=== PATIENT | female | born 1965 | race Caucasian/White ===

== ENCOUNTER 2017-10-27 15:44 | Inpatient (IN) | payer MEDICARE, MEDICAID ==
[~2017-10-27] VITALS: Ht 162.6 cm; Wt 90.9 kg
[~2017-10-27 15:44] MED LIST: ASPI81TA11 PO; FLUC200T63 PO; HUMALOGP SQ; LEVEMIR SQ; METO25 PO; MEVA40TA PO; NIFE1TAB85 PO; NYSTT TOPICAL; PRIL20CA PO; PRIN5TAB PO; ZOVI400T15 PO
[2017-10-27 15:54] VITALS: BP 196/108; PULSE 116; RESP 20; TEMP 100.2; O2SAT 98
--- NOTE | 2017-10-27 16:54 | RADRPT ---
EXAM DATE/TIME: 10/27/2017 16:18 [facility] COMPARISON: CHEST SINGLE AP, December 17, 2015, 12:23. INDICATIONS : Fever. MEDICAL HISTORY : Vision impaired. SURGICAL HISTORY : Hernia surgery, Breast reduction. ENCOUNTER: Initial ACUITY: 3 days PAIN SCORE: 0/10 LOCATION: Bilateral chest FINDINGS: PA and lateral views of the chest demonstrate the lungs to be symmetrically aerated without evidence of mass, infiltrate or effusion. The cardiomediastinal contours are unremarkable. Osseous structure s are intact. CONCLUSION: No evidence of acute cardiopulmonary disease. Enio Heranndez MD on October 27, 2017 at 16:51 Board Certified Radiologist. This report was verified electronically.
[2017-10-27] MEDS ORDERED: SODIUM CHLOR 0.9% 1000 ML INJ 1,000 ML IV SCH (17:20)
[2017-10-27] MEDS ORDERED: NIFE30TA61 PO (17:21)
[2017-10-27] MEDS ORDERED: LOVA40TA PO (17:21)
[2017-10-27] MEDS ORDERED: GLIP10TA6 PO (17:21)
[2017-10-27] MEDS ORDERED: ACYC400T PO (17:21)
[2017-10-27] MEDS ORDERED: ERGO2000 PO (17:21)
[2017-10-27] MEDS ORDERED: OMEP20TA93 PO (17:21)
[2017-10-27] MEDS ORDERED: METF500T PO (17:21)
[2017-10-27] MEDS ORDERED: METO50TA PO (17:21)
[2017-10-27] MEDS ORDERED: ONDANSETRON HCL 4 MG/2 ML VIAL IVP ONE (17:30)
[2017-10-27] MEDS ORDERED: SODIUM CHLORIDE 0.9% FLUSH 10 ML FLUSH IV FLUSH PRN ×2 (17:30→23:00)
[2017-10-27 17:44] VITALS: BP 181/95; PULSE 114; RESP 22; TEMP 102.1; O2SAT 100
[2017-10-27] MEDS ORDERED: ACETAMINOPHEN 500 MG CPLT PO ONE (17:45)
[2017-10-27 17:51] LABS: AUTOMATED NEUTROPHIL # 13.4 TH/MM3 (1.8-7.7); BASOPHIL # 0.1 TH/MM3 (0-0.2); BASOPHIL % 0.6 % (0.0-2.0); EOSINOPHIL % 0.1 % (0.0-4.0); HEMATOCRIT 37.7 % (35.0-46.0); HEMOGLOBIN 12.6 GM/DL (11.6-15.3); LYMPH % 8.5 % (9.0-44.0); LYMPHOCYTE # 1.4 TH/MM3 (1.0-4.8); MEAN CELL VOLUME 82.3 FL (80.0-100.0); MEAN CORPUSCULAR HEMOGLOBIN 27.5 PG (27.0-34.0); MEAN CORPUSCULAR HGB CONC 33.4 % (32.0-36.0); MEAN PLATELET VOLUME 7.9 FL (7.0-11.0); MONO % 6.1 % (0.0-8.0); NEUT % 84.7 % (16.0-70.0); PLATELET COUNT 362 TH/MM3 (150-450); RED BLOOD COUNT 4.58 MIL/MM3 (4.00-5.30); RED CELL DISTRIBUTION WIDTH 14.3 % (11.6-17.2); WHITE BLOOD COUNT 15.9 TH/MM3 (4.0-11.0)
[2017-10-27] MEDS ORDERED: PIPERACIL-TAZO 4.5 GM PREMIX 100 ML IV STA (17:56)
[2017-10-27 18:00] LABS: INTERNATIONAL NORMALIZED RATIO 1.1 RATIO
[2017-10-27] MEDS ORDERED: SODIUM CHLOR 0.9% 1000 ML INJ 1,000 ML IV ONE (18:00)
[2017-10-27 18:53] VITALS: BP 177/83; PULSE 98; O2SAT 99
--- NOTE | 2017-10-27 18:54 | PD ---
HPI Chief Complaint: General Weakness Time Seen by Provider: 17:20 Travel History International Travel<30 days: No Contact w/Intl Traveler<30days: No Traveled to known affect area: No History of Present Illness HPI Patient comes [facility] department complaining of generalized weakness and vomiting 3 days. Patient reports she has not been able to keep any of her medicine down secondary to this. Patient reports that she has her Ricardo replaced every 3 weeks by home health nurse has had this done last 3 weeks ago. Patient denies any abdominal pain, known fevers, chest pain, shortness of breath, or neck pain. Patient reports she is able to take nausea medicine this morning that seemed to help. Eating or drinking anything makes symptoms worse. Denies any pain or radiation of pain. Severity moderate. PFSH Past Medical History Arthritis: Yes (knee) Cancer: No Cardiovascular Problems: Yes High Cholesterol: Yes Diabetes: Yes (NIDDM) Patient Takes Glucophage: Yes Endocrine: Yes Gastrointestinal Disorders: Yes GERD: Yes Genitourinary: No Hepatitis: No Hiatal Hernia: No Hypertension: Yes Immune Disorder: No Medical other: Yes (reflux, RETINITIS PIGMENTOSE) Musculoskeletal: Yes Neurologic: Yes Psychiatric: No Reproductive: No Respiratory: No Thyroid Disease: No ?: Not Past Surgical History Abdominal Surgery: Yes (abd hysterectomy, hernia repair ) Gynecologic Surgery: Yes (breast reduction) Hysterectomy: Yes Pacemaker: No Other Surgery: Yes Social History Alcohol Use: No Tobacco Use: No Substance Use: No Allergies-Medications (Allergen,Severity, Reaction): Coded Allergies: ibuprofen (Unverified Allergy, Intermediate, Nausea/Vomiting, 10/27/17) iodine (Unverified Allergy, Intermediate, Hives, 03/10/17) monosodium glutamate (Unverified Allergy, Intermediate, Rash, 03/10/17) oxycodone (Unverified Allergy, Intermediate, Nausea/Vomiting, 03/10/17) potassium iodide (Unverified Allergy, Intermediate, Hives, 03/10/17) povidone-iodine (Unverified Allergy, Intermediate, Hives, 03/10/17) shellfish derived (Unverified Allergy, Intermediate, Hives, 03/10/17) sodium iodide (Unverified Allergy, Intermediate, Hives, 03/10/17) sodium iodide (Unverified Allergy, Intermediate, Hives, 03/10/17) Reported Meds & Prescriptions Reported Meds & Active Scripts Active Reported Vitamin D2 (Ergocalciferol) 2,000 Unit Tab 50,000 Units PO WEEKLY Glipizide 10 Mg Tab 10 Mg PO DAILY Take 30 minutes before a meal Acyclovir 400 Mg Tab 400 Mg PO TID Metoprolol Tartrate 50 Mg Tab 50 Mg PO BID Nifedipine ER 24 HR (Nifedipine) 30 Mg Tab 30 Mg PO DAILY Omeprazole 20 Mg Tab 20 Mg PO DAILY Lovastatin 40 Mg Tab 40 Mg PO DAILY Metformin (Metformin HCl) 500 Mg Tab 500 Mg PO BIDPC Review of Systems Except as stated in HPI: all other systems reviewed are Neg Physical Exam Narrative GENERAL: Well-developed, overly nourished, in no acute distress, and non-ill appearing. SKIN: Focused skin assessment warm and dry. HEAD: Atraumatic. Normocephalic. EYES: EOMI. No scleral icterus. No injection or drainage. ENT: No nasal bleeding or discharge. Mucous membranes pink and moist. NECK: Trachea midline. Supple. No nuclear rigidity. CARDIOVASCULAR: Regular rate and rhythm. No murmur appreciated. RESPIRATORY: No accessory muscle use. No respiratory distress. Clear to auscultation. Breath sounds equal bilaterally. GASTROINTESTINAL: Abdomen soft, non-tender, nondistended, and no guarding. Hepatic and splenic margins not palpable. Normal bowel sounds x4. No pulsatile mass. No CVA tenderness. MUSCULOSKELETAL: No obvious deformities. No clubbing. No cyanosis. No edema. Full range of motion. NEUROLOGICAL: Awake and alert. No obvious cranial nerve deficits. Motor grossly within normal limits. Normal speech. PSYCHIATRIC: Appropriate mood and affect; insight and judgment normal. Data Data Last Documented VS Vital Signs Date Time Temp Pulse Resp B/P (MAP) Pulse Ox O2 Delivery O2 Flow Rate FiO2 10/27/17 19:47 98.2 98 18 159/87 (111) 99 Room Air Orders Orders Comprehensive Metabolic Panel (10/27/17 15:57) Complete Blood Count With Diff (10/27/17 15:57) Lipase (10/27/17 15:57) Prothrombin Time / Inr (Pt) (10/27/17 15:57) Act Partial Throm Time (Ptt) (10/27/17 15:57) Urinalysis - C+S If Indicated (10/27/17 15:57) Influenzae A/B Antigen (10/27/17 15:57) Chest, Pa & Lat (10/27/17 ) Lactic Acid Sepsis Protocol (10/27/17 15:57) Iv Access Insert/Monitor (10/27/17 17:20) Ecg Monitoring (10/27/17 17:20) Oximetry (10/27/17 17:20) Ondansetron Inj (Zofran Inj) (10/27/17 17:30) Sodium Chlor 0.9% 1000 Ml Inj (Ns 1000 M (10/27/17 17:20) Sodium Chloride 0.9% Flush (Ns Flush) (10/27/17 17:30) Acetaminophen (Tylenol) (10/27/17 17:45) Sepsis Workup Initiated (10/27/17 ) Blood Culture (10/27/17 17:56) Piperacil-Tazo 4.5 Gm Premix (Zosyn 4.5 (10/27/17 17:56) Sodium Chlor 0.9% 1000 Ml Inj (Ns 1000 M (10/27/17 18:00) Ct Abd/Pel W/O Iv Contrast (10/27/17 18:25) Beta Hydroxybutyrate (Acetone) (10/27/17 17:32) Urine Culture (10/27/17 18:26) Continue Ricardo/Suprapubic Cath (10/27/17 20:17) Vital Signs (Adult) Q4H (10/27/17 20:17) Activity Bed Rest (10/27/17 20:17) Notify Dr: Other (10/27/17 20:17) Admit Order (Ed Use Only) (10/27/17 20:35) Labs Laboratory Tests Test 10/27/17 17:32 10/27/17 18:26 White Blood Count 15.9 TH/MM3 Red Blood Count 4.58 MIL/MM3 Hemoglobin 12.6 GM/DL Hematocrit 37.7 % Mean Corpuscular Volume 82.3 FL Mean Corpuscular Hemoglobin 27.5 PG Mean Corpuscular Hemoglobin Concent 33.4 % Red Cell Distribution Width 14.3 % Platelet Count 362 TH/MM3 Mean Platelet Volume 7.9 FL Neutrophils (%) (Auto) 84.7 % Lymphocytes (%) (Auto) 8.5 % Monocytes (%) (Auto) 6.1 % Eosinophils (%) (Auto) 0.1 % Basophils (%) (Auto) 0.6 % Neutrophils # (Auto) 13.4 TH/MM3 Lymphocytes # (Auto) 1.4 TH/MM3 Monocytes # (Auto) 1.0 TH/MM3 Eosinophils # (Auto) 0.0 TH/MM3 Basophils # (Auto) 0.1 TH/MM3 CBC Comment DIFF FINAL Differential Comment Prothrombin Time 11.0 SEC Prothromb Time International Ratio 1.1 RATIO Activated Partial Thromboplast Time 26.1 SEC Blood Urea Nitrogen 25 MG/DL Creatinine 1.75 MG/DL Random Glucose 248 MG/DL Total Protein 7.7 GM/DL Albumin 3.1 GM/DL Calcium Level 9.5 MG/DL Alkaline Phosphatase 148 U/L Aspartate Amino Transf (AST/SGOT) 11 U/L Alanine Aminotransferase (ALT/SGPT) 14 U/L Total Bilirubin 0.5 MG/DL Sodium Level 135 MEQ/L Potassium Level 4.1 MEQ/L Chloride Level 104 MEQ/L Carbon Dioxide Level 19.4 MEQ/L Anion Gap 12 MEQ/L Estimat Glomerular Filtration Rate 31 ML/MIN Lactic Acid Level 0.9 mmol/L Lipase 89 U/L B-Hydroxybutyrate 0.55 MMOL/L Urine Color YELLOW Urine Turbidity CLOUDY Urine pH 5.0 Urine Specific [place] 1.014 Urine Protein 30 mg/dL Urine Glucose (UA) 1000 mg/dL Urine Ketones 10 mg/dL Urine Occult Blood SMALL Urine Nitrite POS Urine Bilirubin NEG Urine Urobilinogen LESS THAN 2.0 MG/DL Urine Leukocyte Esterase LARGE Urine RBC 38 /hpf Urine WBC /hpf Urine WBC Clumps RARE Urine Squamous Epithelial Cells <1 /hpf Urine Bacteria MANY /hpf Microscopic Urinalysis Comment CATH-CULTURE IND [facility] Medical Decision Making Medical Screen Exam Complete: Yes Emergency Medical Condition: Yes Interpretation(s) Last Impressions Abdomen/Pelvis CT 10/27/17 1825 Signed Impressions: Service Date/Time: Friday, October 27, 2017 19:24 - CONCLUSION: 1. No acute findings within the abdomen and pelvis. Multiple layering gallstones or gallbladder sludge. Previous ventral hernia repair. Arnulfo Mayer MD Chest X-Ray 10/27/17 0000 Signed Impressions: Service Date/Time: Friday, October 27, 2017 16:18 - CONCLUSION: No evidence of acute cardiopulmonary disease. Enio Hernandez MD Differential Diagnosis Gastritis, pancreatitis, sepsis, UTI, metabolic disturbance, dehydration, DKA Narrative Course Patient was seen and examined. Initial laboratory radiological studies were ordered. Patient start IV fluid, IV Zofran, and p.o. Tylenol along with IV Zosyn. Patient was reevaluated reports improvement in symptoms but still feeling weak. Discussed all findings and plan of care with patient is agreeable for admission. All questions were answered. Ricardo catheter was replaced. Discussed patient with Dr. Ashton, who is in agreement plan of care and disposition. Discussed patient with hospitalist who is agreeable to admit the patient. Patient remained stable throughout ED course. Procedures Procedure Narrative [address] Bird, who is agreeable to admit the patient. Sepsis Criteria SIRS Criteria (2 or more): Temp > 100.9 or < 96.8, Heart rate over 90, WBC > 07622, < 4000 or > 10% bands Sepsis Criteria (SIRS+source): Infect source susp/known Diagnosis Primary Impression: Sepsis Qualified Codes: A41.9 - Sepsis, unspecified organism Additional Impression: UTI (urinary tract infection) Qualified Codes: T83.511A - Infection and inflammatory reaction due to indwelling urethral catheter, initial encounter; N39.0 - Urinary tract infection , site not specified Admitting Information Admitting Physician Requests: Admit Condition: Stable Rolf Hackett Oct 27, 2017 18:54
[2017-10-27 18:56] LABS: ALBUMIN 3.1 GM/DL (3.4-5.0); AST (GOT) 11 U/L (15-37); BICARBONATE 19.4 MEQ/L (21.0-32.0); BLOOD UREA NITROGEN 25 MG/DL (7-18); CALCIUM 9.5 MG/DL (8.5-10.1); CREATININE 1.75 MG/DL (0.50-1.00); GLOMERULAR FILTRATION RATE 31 ML/MIN (>89); GLUCOSE,RANDOM 248 MG/DL (74-106)
[2017-10-27 18:57] LABS: ALT (GPT) 14 U/L (10-53)
[2017-10-27 18:59] LABS: ALKALINE PHOSPHATASE 148 U/L (45-117); TOTAL BILIRUBIN ADULT 0.5 MG/DL (0.2-1.0); TOTAL PROTEIN 7.7 GM/DL (6.4-8.2)
[2017-10-27 19:07] LABS: BACTERIA, URINE MANY /hpf; BILIRUBIN, URINE NEG (NEG); BLOOD, URINE SMALL (NEG); GLUCOSE,URINE 1000 mg/dL (NEG); KETONE, URINE 10 mg/dL (NEG); NITRITE,URINE POS (NEG); SQUAMOUS EPITHELIAL CELL URINE <1 /hpf (0-5); URINE COLOR YELLOW (YELLW/STRAW); URINE LEUKOCYTE ESTERASE LARGE (NEG); WHITE BLOOD CELL CLUMPS RARE
[2017-10-27 19:36] LABS: CHLORIDE 104 MEQ/L (98-107); SODIUM (NA) 135 MEQ/L (136-145)
[2017-10-27 19:47] VITALS: BP 159/87; PULSE 98; RESP 18; TEMP 98.2; O2SAT 99
--- NOTE | 2017-10-27 19:58 | RADRPT ---
EXAM DATE/TIME: 10/27/2017 19:24 [facility] COMPARISON: No previous studies available for comparison. INDICATIONS : Patient complains of weakness and vomiting ORAL CONTRAST: No oral contrast ingested. RADIATION DOSE: 20.64 CTDIvol (mGy) MEDICAL HISTORY : Hypertension. Diabetes mellitus type 1. SURGICAL HISTORY : Hysterectomy. hernia repair ENCOUNTER: Initial ACUITY: 3 days PAIN SCALE: 6/10 LOCATION: abdomen TECHNIQUE: Volumetric scanning of the abdomen and pelvis was performed. Using automated exposure control and ad justment of the mA and/or kV according to patient size, radiation dose was kept as low as reasonably achievable to obtain optimal diagnostic quality images. DICOM format image data is available electro nically for review and comparison. FINDINGS: Lung bases are clear. There is previous ventral hernia repair. No acute findings in the liver, spleen , adrenals, kidneys or pancreas. There is dependent sludge or gallstones in the gallbladder without d elay ductal dilatation. Large panniculus present. Bladder unremarkable. No pelvic masses. Previous hy sterectomy. CONCLUSION: 1. No acute findings within the abdomen and pelvis. Multiple layering gallstones or gallbladder sludg e. Previous ventral hernia repair. Arnulfo Mayer MD on October 27, 2017 at 19:52 Board Certified Radiologist. This report was verified electronically.
[2017-10-27] MEDS ORDERED: BISACODYL 10 MG SUPP RECTAL PRN (23:00)
[2017-10-27] MEDS ORDERED: NALOXONE HCL 0.4 MG/ML AMP IV PUSH PRN (23:00)
[2017-10-27] MEDS ORDERED: ACETAMINOPHEN 325 MG TAB PO PRN (23:00)
[2017-10-27] MEDS ORDERED: LACTULOSE SYRUP 20 GM/30 ML CUP PO PRN (23:00)
[2017-10-27] MEDS ORDERED: MAGNESIUM HYDROXIDE SUSP 30 ML CUP PO PRN (23:00)
[2017-10-27] MEDS ORDERED: SENNOSIDES 8.6 MG TAB PO PRN (23:00)
[2017-10-27] MEDS ORDERED: GLUCAGON 1 MG/ML VIAL OTHER PRN (23:15)
[2017-10-27] MEDS ORDERED: DEXTROSE 50% IN WATER 50 ML VIAL(D50) IV PUSH PRN (23:15)
[2017-10-28] MEDS: SODIUM CHLOR 0.9% 1000 ML INJ 1,000 ML IV SCH ×4 (00:07→23:00)
[2017-10-28] MEDS: PIPERACIL-TAZO 3.375 GM PREMIX 50 ML IV SCH ×4 (00:08→17:52)
--- NOTE | 2017-10-28 01:30 | HHI.HP ---
[facility] Jaimie Pete MD Admission Diagnosis Sepsis, UTI Diagnoses: Travel History International Travel<30 Days: No Contact w/Intl Traveler <30 Da: No Traveled to Known Affected Are: No History of Present Illness 52-year-old female with a past medical history significant for retinitis pigmentosa, diabetes mellitus, hypertension, hyperlipidemia and GERD presents to the emergency department for evaluation of weakness. The patient reports that she woke up this morning and was just not feeling well. She states she had significant weakness with emesis 1. She has an indwelling Ricardo catheter that is changed every 3 weeks secondary to urinary retention. She endorses subjective fever/chills. Denies chest pain or shortness of breath. No abdominal/pelvic pain. No nausea/diarrhea. No lateralizing signs/symptoms. Review of Systems Except as stated in HPI: all other systems reviewed are Neg Past Family Social History Past Medical History retinitis pigmentosa, diabetes mellitus, hypertension, hyperlipidemia and GERD Past Surgical History Breast reduction Hysterectomy Hernia repair Reported Medications Reported Meds & Active Scripts Active Reported Vitamin D2 (Ergocalciferol) 2,000 Unit Tab 50,000 Units PO WEEKLY Glipizide 10 Mg Tab 10 Mg PO DAILY Take 30 minutes before a meal Acyclovir 400 Mg Tab 400 Mg PO TID Metoprolol Tartrate 50 Mg Tab 50 Mg PO BID Nifedipine ER 24 HR (Nifedipine) 30 Mg Tab 30 Mg PO DAILY Omeprazole 20 Mg Tab 20 Mg PO DAILY Lovastatin 40 Mg Tab 40 Mg PO DAILY Metformin (Metformin HCl) 500 Mg Tab 500 Mg PO BIDPC Allergies: Coded Allergies: ibuprofen (Unverified Allergy, Intermediate, Nausea/Vomiting, 10/27/17) iodine (Unverified Allergy, Intermediate, Hives, 03/10/17) monosodium glutamate (Unverified Allergy, Intermediate, Rash, 03/10/17) oxycodone (Unverified Allergy, Intermediate, Nausea/Vomiting, 03/10/17) potassium iodide (Unverified Allergy, Intermediate, Hives, 03/10/17) povidone-iodine (Unverified Allergy, Intermediate, Hives, 03/10/17) shellfish derived (Unverified Allergy, Intermediate, Hives, 03/10/17) sodium iodide (Unverified Allergy, Intermediate, Hives, 03/10/17) sodium iodide (Unverified Allergy, Intermediate, Hives, 03/10/17) Family History Mother with diabetes mellitus Social History Negative for alcohol, tobacco and illicit drugs. Physical Exam Vital Signs Vital Signs Date Time Temp Pulse Resp B/P (MAP) Pulse Ox O2 Delivery O2 Flow Rate FiO2 10/27/17 21:04 10/27/17 19:47 98.2 98 18 159/87 (111) 99 Room Air 10/27/17 18:53 98 177/83 (114) 99 10/27/17 17:44 102.1 114 22 181/95 (123) 100 Room Air 10/27/17 15:54 100.2 116 20 196/108 (137) 98 Physical Exam GENERAL: Obese, female sitting up in bed SKIN: No rashes, ecchymoses or lesions. Cool and dry. HEAD: Atraumatic. Normocephalic. No temporal or scalp tenderness. EYES: Pupils equal round and reactive. Extraocular motions intact. No scleral icterus. No injection or drainage. ENT: Nose without bleeding, purulent drainage or septal hematoma. Throat without erythema, tonsillar hypertrophy or exudate. Uvula midline. Airway patent. NECK: Trachea midline. No JVD or lymphadenopathy. Supple, nontender, no meningeal signs. CARDIOVASCULAR: Regular rate and rhythm without murmurs, gallops, or rubs. RESPIRATORY: Clear to auscultation. Breath sounds equal bilaterally. No wheezes , rales, or rhonchi. GASTROINTESTINAL: Abdomen soft, non-tender, nondistended. No hepato-splenomegaly , or palpable masses. No guarding. MUSCULOSKELETAL: Extremities without clubbing, cyanosis, or edema. No joint tenderness, effusion, or edema noted. No calf tenderness. NEUROLOGICAL: Awake and alert. Cranial nerves II through XII intact. Motor and sensory grossly within normal limits. Normal speech. Laboratory Laboratory Tests Test 10/27/17 17:32 10/27/17 18:26 White Blood Count 15.9 Red Blood Count 4.58 Hemoglobin 12.6 Hematocrit 37.7 Mean Corpuscular Volume 82.3 Mean Corpuscular Hemoglobin 27.5 Mean Corpuscular Hemoglobin Concent 33.4 Red Cell Distribution Width 14.3 Platelet Count 362 Mean Platelet Volume 7.9 Neutrophils (%) (Auto) 84.7 Lymphocytes (%) (Auto) 8.5 Monocytes (%) (Auto) 6.1 Eosinophils (%) (Auto) 0.1 Basophils (%) (Auto) 0.6 Neutrophils # (Auto) 13.4 Lymphocytes # (Auto) 1.4 Monocytes # (Auto) 1.0 Eosinophils # (Auto) 0.0 Basophils # (Auto) 0.1 CBC Comment DIFF FINAL Differential Comment Prothrombin Time 11.0 Prothromb Time International Ratio 1.1 Activated Partial Thromboplast Time 26.1 Blood Urea Nitrogen 25 Creatinine 1.75 Random Glucose 248 Total Protein 7.7 Albumin 3.1 Calcium Level 9.5 Alkaline Phosphatase 148 Aspartate Amino Transf (AST/SGOT) 11 Alanine Aminotransferase (ALT/SGPT) 14 Total Bilirubin 0.5 Sodium Level 135 Potassium Level 4.1 Chloride Level 104 Carbon Dioxide Level 19.4 Anion Gap 12 Estimat Glomerular Filtration Rate 31 Lactic Acid Level 0.9 Lipase 89 B-Hydroxybutyrate 0.55 Urine Color YELLOW Urine Turbidity CLOUDY Urine pH 5.0 Urine Specific [place] 1.014 Urine Protein 30 Urine Glucose (UA) 1000 Urine Ketones 10 Urine Occult Blood SMALL Urine Nitrite POS Urine Bilirubin NEG Urine Urobilinogen LESS THAN 2.0 Urine Leukocyte Esterase LARGE Urine RBC 38 Urine WBC Urine WBC Clumps RARE Urine Squamous Epithelial Cells <1 Urine Bacteria MANY Microscopic Urinalysis Comment CATH-CULTURE IND Date/Time Source Procedure Growth Status 10/27/17 18:20 Blood Peripheral Aerobic Blood Culture Pending Received 10/27/17 18:20 Blood Peripheral Anaerobic Blood Culture Pending Received 10/27/17 17:32 Nasal Aspirate Influenza Types A,B Antigen ([facility]ON) - Final NEGATIVE FOR FLU A AND B ANTIGEN.... Complete 10/27/17 18:26 Urine Catheterized Urine Urine Culture Pending Received Result Diagram: 10/27/17 1732 10/27/17 173 Caprini VTE Risk Assessment Caprini VTE Risk Assessment: No/Low Risk (score <= 1) Caprini Risk Assessment Model Point Value = 1 Point Value = 2 Point Value = 3 Point Value = 5 Age 41-60 Minor surgery BMI > 25 kg/m2 Swollen legs Varicose veins or History of unexplained or recurrent spontaneous Oral contraceptives or hormone replacement Sepsis (< 1 month) Serious lung disease, including pneumonia (< 1 month) Abnormal pulmonary function Acute myocardial infarction Congestive heart failure (< 1 month) History of inflammatory bowel disease Medical patient at bed rest Age 61-74 Arthroscopic surgery Major open surgery (> 45 min) Laparoscopic surgery (> 45 min) Malignancy Confined to bed (> 72 hours) Immobilizing plaster cast Central venous access Age >= 75 History of VTE Family history of VTE Factor V Leiden Prothrombin [id number] Lupus anticoagulant Anticardiolipin antibodies Elevated serum homocysteine Heparin-induced thrombocytopenia Other congenital or acquired thrombophilia Stroke (< 1 month) Elective arthroplasty Hip, pelvis, or leg fracture Acute spinal cord injury (< 1 month) Prophylaxis Regimen Total Risk Factor Score Risk Level Prophylaxis Regimen 0-1 Low Early ambulation 2 Moderate Order ONE of the following: *Sequential Compression Device (SCD) *Heparin 5000 units SQ BID 3-4 Higher Order ONE of the following medications: *Heparin 5000 units SQ TID *Enoxaparin/Lovenox 40 mg SQ daily (WT < 150 kg, CrCl > 30 mL/min) *Enoxaparin/Lovenox 30 mg SQ daily (WT < 150 kg, CrCl > 10-29 mL/min) *Enoxaparin/Lovenox 30 mg SQ BID (WT < 150 kg, CrCl > 30 mL/min) AND/OR *Sequential Compression Device (SCD) 5 or more Highest Order ONE of the following medications: *Heparin 5000 units SQ TID (Preferred with Epidurals) *Enoxaparin/Lovenox 40 mg SQ daily (WT < 150 kg, CrCl > 30 mL/min) *Enoxaparin/Lovenox 30 mg SQ daily (WT < 150 kg, CrCl > 10-29 mL/min) *Enoxaparin/Lovenox 30 mg SQ BID (WT < 150 kg, CrCl > 30 mL/min) AND *Sequential Compression Device (SCD) Assessment and Plan Assessment and Plan Assessment/plan: 1. Urosepsis Patient with leukocytosis, fever, tachycardia UA consistent with urinary tract infection Blood/urine cultures pending IV fluid hydration Zosyn Monitor for signs of shock 2. Diabetes mellitus Holding home oral anti-hyperglycemics Sliding scale insulin Monitor blood glucose 3. Hypertension/hyperlipidemia/GERD Continue home medications 4. Retinitis pigmentosa Visual impairment precautions 5. DANIELA BUN/creatinine 25/1.75, baseline 0.96 - 2 years ago IV fluid hydration Monitor renal function FEN Heart healthy, diabetic diet Electrolytes: Monitor and replete prn NS at 125 cc/hr SCDs Physician Certification 2 Midnight Certification Type: Admission for Inpatient Services Order for Inpatient Services The services are ordered in accordance with Medicare regulations or non- Medicare payer requirements, as applicable. In the case of services not specified as inpatient-only, they are appropriately provided as inpatient services in accordance with the 2-midnight benchmark. Estimated LOS (days): 2 2 days is the estimated time the patient will need to remain in the hospital, assuming treatment plan goals are met and no additional complications. Post-Hospital Plan: Not yet determined Annabel Bird MD Oct 28, 2017 01:30
[2017-10-28] MEDS: ONDANSETRON HCL 4 MG/2 ML VIAL IVP PRN ×2 (03:06→15:36)
[2017-10-28 03:16] VITALS: BP 186/96; PULSE 94; RESP 18; TEMP 98.3; O2SAT 98
[2017-10-28 07:13] VITALS: BP 176/81; PULSE 95; RESP 20; TEMP 98.3; O2SAT 98
[2017-10-28] MEDS: SODIUM CHLORIDE 0.9% FLUSH 10 ML FLUSH IV FLUSH SCH ×2 (08:17→22:26)
[2017-10-28] MEDS: PANTOPRAZOLE SOD 20 MG DELAYED RELEASE TAB PO SCH (08:17)
[2017-10-28] MEDS: PRAVASTATIN SOD 40 MG TAB PO SCH (08:17)
[2017-10-28] MEDS: DOCUSATE SODIUM 50 MG/SENNA 8.6 MG TAB PO SCH ×2 (08:17→22:26)
[2017-10-28] MEDS: METOPROLOL TARTRATE 50 MG TAB PO SCH ×2 (08:17→22:26)
[2017-10-28] MEDS: NIFEdipine 30 MG SUSTAINED RELEASE TAB PO SCH (08:17)
[2017-10-28] MEDS: INSULIN ASPART SUPPLEMENTAL SCALE SQ SCH ×4 (09:30→21:00)
[2017-10-28] MEDS: ACYCLOVIR 200 MG CAP PO SCH ×3 (09:31→17:00)
--- NOTE | 2017-10-28 10:48 | HHI.PR ---
Subjective Remarks in no acute distress. no fever this morning. feels better and stronger today. Objective Vitals Vital Signs Date Time Temp Pulse Resp B/P (MAP) Pulse Ox O2 Delivery O2 Flow Rate FiO2 10/28/17 07:13 98.3 95 20 176/81 (112) 98 10/28/17 03:16 98.3 94 18 186/96 (126) 98 10/27/17 21:04 10/27/17 19:47 98.2 98 18 159/87 (111) 99 Room Air 10/27/17 18:53 98 177/83 (114) 99 10/27/17 17:44 102.1 114 22 181/95 (123) 100 Room Air 10/27/17 15:54 100.2 116 20 196/108 (137) 98 I/O 10/27/17 10/27/17 10/27/17 10/28/17 10/28/17 10/28/17 07:00 15:00 23:00 07:00 15:00 23:00 Intake Total 2100 ml 50 ml Balance 2100 ml 50 ml Intake IV Total 2100 ml 50 ml Result Diagram: 10/27/17 1732 10/27/17 1732 Imaging Last Impressions Abdomen/Pelvis CT 10/27/17 1825 Signed Impressions: Service Date/Time: Friday, October 27, 2017 19:24 - CONCLUSION: 1. No acute findings within the abdomen and pelvis. Multiple layering gallstones or gallbladder sludge. Previous ventral hernia repair. Arnulfo Mayer MD Chest X-Ray 10/27/17 0000 Signed Impressions: Service Date/Time: Friday, October 27, 2017 16:18 - CONCLUSION: No evidence of acute cardiopulmonary disease. Enio Hernandez MD Objective Remarks GENERAL: This is a well-nourished, well-developed patient, in no apparent distress. CARDIOVASCULAR: Regular rate and regular rhythm without murmurs, gallops, or rubs. RESPIRATORY: Clear to auscultation. Breath sounds equal bilaterally. No wheezes , rales, or rhonchi. GASTROINTESTINAL: Abdomen soft, non-tender, nondistended. Normal, active bowel sounds MUSCULOSKELETAL: Extremities without clubbing, cyanosis, or edema. NEURO: Alert & Oriented x4 to person, place, time, situation. Moves all ext x4 Medications and IVs Inpatient Medications Acetaminophen (Tylenol) 650 mg Q4H PRN PO TEMP > 100.4; Start 10/27/17 at 23:00 Acyclovir (Zovirax) 400 mg TID PO Last administered on 10/28/17at 09:31; Start at 09:00 Bisacodyl (Dulcolax Supp) 10 mg DAILY PRN RECTAL SEVERE CONSITIPATION; Start at 23:00 Dextrose (D50w (Vial) Inj) 50 ml UNSCH PRN IV PUSH HYPOGLYCEMIA-SEE COMMENTS; Start 10/27/17 at 23:15 Glucagon (Glucagon Inj) 1 mg UNSCH PRN OTHER HYPOGLYCEMIA-SEE COMMENTS; Start 10/27/17 at 23:15 Insulin Aspart (NovoLOG SUPPLEMENTAL SCALE) 1 ACHS SLIDING SCALE SQ Last administered on 10/28/17at 09:30; Start 10/28/17 at 08:00 Lactulose (Lactulose Liq) 30 ml DAILY PRN PO SEVERE CONSITIPATION; Start at 23:00 Magnesium Hydroxide (Milk Of Magnesia Liq) 30 ml Q12H PRN PO Mild constipation ; Start 10/27/17 at 23:00 Metoprolol Tartrate (Lopressor) 50 mg BID PO Last administered on 10/28/17 08: 17; Start 10/28/17 at 09:00 Naloxone HCl (Narcan Inj) 0.4 mg UNSCH PRN IV PUSH SEE LABEL COMMENTS; Start at 23:00 Nifedipine (Procardia Xl) 30 mg DAILY PO Last administered on 10/28/17 08:17; Start 10/28/17 at 09:00 Ondansetron HCl (Zofran Inj) 4 mg Q6H PRN IVP NAUSEA OR VOMITING Last administered on 10/28/17 03:06; Start 10/27/17 at 23:00 Pantoprazole Sodium (Protonix) 20 mg DAILY PO Last administered on 10/28/17 08: 17; Start 10/28/17 at 09:00 Piperacillin Sod/ Tazobactam Sod 50 ml @ 100 mls/hr Q6H IV Last administered on 10/28/17at 06:32; Start 10/28/17 at 00:00 Pravastatin Sodium (Pravachol) 40 mg DAILY PO Last administered on 4/4/18at 08: 17; Start 10/28/17 at 09:00 Senna/Docusate Sodium (Tamara-Colace) 1 tab BID PO Last administered on 10/28/17at 08:17; Start 10/28/17 at 09:00 Sennosides (Senokot) 17.2 mg Q12H PRN PO Moderate constipation; Start 10/27/17 at 23:00 Sodium Chloride (NS Flush) 2 ml BID IV FLUSH ; Start 10/28/17 at 09:00 A/P Assessment and Plan 1. Urosepsis Patient with leukocytosis, fever, tachycardia UA consistent with urinary tract infection Blood/urine cultures pending IV fluid hydration continue IV Zosyn 2. Diabetes mellitus Holding home oral anti-hyperglycemics Sliding scale insulin Monitor blood glucose 3. Hypertension/hyperlipidemia/GERD Continue home medications 4. Retinitis pigmentosa Visual impairment precautions 5. DANIELA BUN/creatinine 25/1.75, baseline 0.96 - 2 years ago IV fluid hydration Monitor renal function consult PT. Ernie Null MD Oct 28, 2017 10:48
[2017-10-28 11:27] VITALS: BP 174/77; PULSE 89; RESP 20; TEMP 99.4; O2SAT 97
[2017-10-28 12:22] LABS: AUTOMATED NEUTROPHIL # 8.4 TH/MM3 (1.8-7.7); BASOPHIL % 0.4 % (0.0-2.0); EOSINOPHIL % 0.3 % (0.0-4.0); HEMATOCRIT 31.5 % (35.0-46.0); HEMOGLOBIN 10.6 GM/DL (11.6-15.3); LYMPH % 11.9 % (9.0-44.0); LYMPHOCYTE # 1.3 TH/MM3 (1.0-4.8); MEAN CELL VOLUME 82.3 FL (80.0-100.0); MEAN CORPUSCULAR HEMOGLOBIN 27.7 PG (27.0-34.0); MEAN CORPUSCULAR HGB CONC 33.6 % (32.0-36.0); MEAN PLATELET VOLUME 7.9 FL (7.0-11.0); MONO % 8.4 % (0.0-8.0); MONOCYTE # 0.9 TH/MM3 (0-0.9); PLATELET COUNT 310 TH/MM3 (150-450); RED BLOOD COUNT 3.83 MIL/MM3 (4.00-5.30); RED CELL DISTRIBUTION WIDTH 14.4 % (11.6-17.2); WHITE BLOOD COUNT 10.6 TH/MM3 (4.0-11.0)
[2017-10-28 12:39] LABS: BICARBONATE 20.6 MEQ/L (21.0-32.0); CALCIUM 8.2 MG/DL (8.5-10.1); CREATININE 1.47 MG/DL (0.50-1.00)
[2017-10-28 16:15] VITALS: BP 180/87; PULSE 93; RESP 20; TEMP 98.9; O2SAT 95
[2017-10-28 20:06] VITALS: BP 139/68; PULSE 87; RESP 16; TEMP 97.6; O2SAT 97
[2017-10-28 22:58] VITALS: BP 153/77; PULSE 69; RESP 16; TEMP 97.4; O2SAT 98
[2017-10-29] MEDS: PIPERACIL-TAZO 3.375 GM PREMIX 50 ML IV SCH ×5 (01:29→23:09)
[2017-10-29 03:10] VITALS: BP 172/90; PULSE 79; RESP 16; TEMP 97.6; O2SAT 99
[2017-10-29] MEDS: SODIUM CHLOR 0.9% 1000 ML INJ 1,000 ML IV SCH ×3 (04:57→23:04)
[2017-10-29 06:41] LABS: BICARBONATE 21.1 MEQ/L (21.0-32.0); CALCIUM 8.5 MG/DL (8.5-10.1); CREATININE 1.37 MG/DL (0.50-1.00)
[2017-10-29 07:11] VITALS: BP 169/83; PULSE 89; RESP 16; TEMP 97.5; O2SAT 97
--- NOTE | 2017-10-29 08:06 | HHI.PR ---
Subjective Remarks in no acute distress. afebrile. overall feeling better and hoping that she could go home today. Objective Vitals Vital Signs Date Time Temp Pulse Resp B/P (MAP) Pulse Ox O2 Delivery O2 Flow Rate FiO2 10/29/17 07:11 97.5 89 16 169/83 (111) 97 10/29/17 03:10 97.6 79 16 172/90 (117) 99 10/28/17 22:58 97.4 69 16 153/77 (102) 98 10/28/17 20:06 97.6 87 16 139/68 (91) 97 10/28/17 16:15 98.9 93 20 180/87 (118) 95 10/28/17 11:27 99.4 89 20 174/77 (109) 97 I/O 10/28/17 10/28/17 10/28/17 10/29/17 10/29/17 10/29/17 07:00 15:00 23:00 07:00 15:00 23:00 Intake Total 100 ml 1050 ml Balance 100 ml 1050 ml Intake IV Total 100 ml 1050 ml Result Diagram: 10/28/17 1145 10/29/17 0448 Imaging Last Impressions Abdomen/Pelvis CT 10/27/17 1825 Signed Impressions: Service Date/Time: Friday, October 27, 2017 19:24 - CONCLUSION: 1. No acute findings within the abdomen and pelvis. Multiple layering gallstones or gallbladder sludge. Previous ventral hernia repair. Arnulfo Mayer MD Chest X-Ray 10/27/17 0000 Signed Impressions: Service Date/Time: Friday, October 27, 2017 16:18 - CONCLUSION: No evidence of acute cardiopulmonary disease. Enio Hernandez MD Objective Remarks GENERAL: This is a well-nourished, well-developed patient, in no apparent distress. CARDIOVASCULAR: Regular rate and regular rhythm without murmurs, gallops, or rubs. RESPIRATORY: Clear to auscultation. Breath sounds equal bilaterally. No wheezes , rales, or rhonchi. GASTROINTESTINAL: Abdomen soft, non-tender, nondistended. Normal, active bowel sounds MUSCULOSKELETAL: Extremities without clubbing, cyanosis, or edema. NEURO: Alert & Oriented x4 to person, place, time, situation. Moves all ext x4 Procedures none Medications and IVs Inpatient Medications Acetaminophen (Tylenol) 650 mg Q4H PRN PO TEMP > 100.4 Last administered on 10/28 17:01; Start 10/27/17 at 23:00 Acyclovir (Zovirax) 400 mg TID PO Last administered on 10/28/17 17:00; Start at 09:00 Bisacodyl (Dulcolax Supp) 10 mg DAILY PRN RECTAL SEVERE CONSITIPATION; Start at 23:00 Dextrose (D50w (Vial) Inj) 50 ml UNSCH PRN IV PUSH HYPOGLYCEMIA-SEE COMMENTS; Start 10/27/17 at 23:15 Glucagon (Glucagon Inj) 1 mg UNSCH PRN OTHER HYPOGLYCEMIA-SEE COMMENTS; Start 10/27/17 at 23:15 Insulin Aspart (NovoLOG SUPPLEMENTAL SCALE) 1 ACHS SLIDING SCALE SQ Last administered on 10/28/17 19:27; Start 10/28/17 at 08:00 Lactulose (Lactulose Liq) 30 ml DAILY PRN PO SEVERE CONSITIPATION; Start at 23:00 Magnesium Hydroxide (Milk Of Magnesia Liq) 30 ml Q12H PRN PO Mild constipation ; Start 10/27/17 at 23:00 Metoprolol Tartrate (Lopressor) 50 mg BID PO Last administered on 10/28/17 22: 26; Start 10/28/17 at 09:00 Naloxone HCl (Narcan Inj) 0.4 mg UNSCH PRN IV PUSH SEE LABEL COMMENTS; Start at 23:00 Nifedipine (Procardia Xl) 30 mg DAILY PO Last administered on 10/28/17 08:17; Start 10/28/17 at 09:00 Ondansetron HCl (Zofran Inj) 4 mg Q6H PRN IVP NAUSEA OR VOMITING Last administered on 10/28/17 15:36; Start 10/27/17 at 23:00 Pantoprazole Sodium (Protonix) 20 mg DAILY PO Last administered on 10/28/17 08: 17; Start 10/28/17 at 09:00 Piperacillin Sod/ Tazobactam Sod 50 ml @ 100 mls/hr Q6H IV Last administered on 10/29/17at 04:57; Start 10/28/17 at 00:00 Pravastatin Sodium (Pravachol) 40 mg DAILY PO Last administered on 10/28/17at 08: 17; Start 10/28/17 at 09:00 Senna/Docusate Sodium (Tamara-Colace) 1 tab BID PO Last administered on 10/28/17at 22:26; Start 10/28/17 at 09:00 Sennosides (Senokot) 17.2 mg Q12H PRN PO Moderate constipation; Start 10/27/17 at 23:00 Sodium Chloride (NS Flush) 2 ml BID IV FLUSH Last administered on 10/28/17at 22: 26; Start 10/28/17 at 09:00 A/P Assessment and Plan 1. Urosepsis Patient with leukocytosis, fever, tachycardia UA consistent with urinary tract infection blood cultures negative/ UC with gram negative duke. IV fluid hydration continue IV Zosyn- will switch to po upon discharge. 2. Diabetes mellitus Holding home oral anti-hyperglycemics Sliding scale insulin Monitor blood glucose 3. Hypertension/hyperlipidemia/GERD Continue home medications 4. Retinitis pigmentosa Visual impairment precautions 5. DANIELA- improved. IV fluid hydration Monitor renal function consulted PT. Discharge Planning dc home today after seen by PT. see med list. f/u; pcp. case management for [facility]. d/w the patient and Ernie Cisneros MD Oct 29, 2017 08:06
[2017-10-29] MEDS ORDERED: CIPR250T52 PO (08:08)
--- NOTE | 2017-10-29 08:09 | HHI.DS ---
Discharge Summary Admission Date Oct 27, 2017 at 20:37 Discharge Date: Oct 29, 2017 Admitting Diagnosis Sepsis, UTI (1) UTI (urinary tract infection) ICD Code: N39.0 - Urinary tract infection, site not specified Status: Acute Procedures none Brief History - From Admission 52-year-old female with a past medical history significant for retinitis pigmentosa, diabetes mellitus, hypertension, hyperlipidemia and GERD presents to the emergency department for evaluation of weakness. The patient reports that she woke up this morning and was just not feeling well. She states she had significant weakness with emesis 1. She has an indwelling Ricardo catheter that is changed every 3 weeks secondary to urinary retention. She endorses subjective fever/chills. Denies chest pain or shortness of breath. No abdominal/pelvic pain. No nausea/diarrhea. No lateralizing signs/symptoms. CBC/BMP: 10/28/17 1145 10/29/17 0448 Significant Findings Laboratory Tests Test 10/27/17 17:32 10/27/17 18:26 10/28/17 11:45 10/29/17 04:48 White Blood Count 15.9 TH/MM3 (4.0-11.0) Neutrophils (%) (Auto) 84.7 % (16.0-70.0) 79.0 % (16.0-70.0) Lymphocytes (%) (Auto) 8.5 % (9.0-44.0) Neutrophils # (Auto) 13.4 TH/MM3 (1.8-7.7) 8.4 TH/MM3 (1.8-7.7) Monocytes # (Auto) 1.0 TH/MM3 (0-0.9) Blood Urea Nitrogen 25 MG/DL (7-18) Creatinine 1.75 MG/DL (0.50-1.00) 1.47 MG/DL (0.50-1.00) 1.37 MG/DL (0.50-1.00) Random Glucose 248 MG/DL (74-106) 242 MG/DL (74-106) 216 MG/DL (74-106) Albumin 3.1 GM/DL (3.4-5.0) Alkaline Phosphatase 148 U/L (45-117) Aspartate Amino Transf (AST/SGOT) 11 U/L (15-37) Sodium Level 135 MEQ/L (136-145) Carbon Dioxide Level 19.4 MEQ/L (21.0-32.0) 20.6 MEQ/L (21.0-32.0) Estimat Glomerular Filtration Rate 31 ML/MIN (>89) 37 ML/MIN (>89) 40 ML/MIN (>89) B-Hydroxybutyrate 0.55 MMOL/L (0.00-0.39) Urine Turbidity CLOUDY (CLEAR) Urine Protein 30 mg/dL (NEG-TRACE) Urine Glucose (UA) 1000 mg/dL (NEG) Urine Ketones 10 mg/dL (NEG) Urine Occult Blood SMALL (NEG) Urine Nitrite POS (NEG) Urine Leukocyte Esterase LARGE (NEG) Urine RBC 38 /hpf (0-3) Urine WBC Clumps RARE (NONE) Urine Bacteria MANY /hpf (NONE) Red Blood Count 3.83 MIL/MM3 (4.00-5.30) Hemoglobin 10.6 GM/DL (11.6-15.3) Hematocrit 31.5 % (35.0-46.0) Monocytes (%) (Auto) 8.4 % (0.0-8.0) Calcium Level 8.2 MG/DL (8.5-10.1) Chloride Level 109 MEQ/L (98-107) 108 MEQ/L (98-107) Imaging Last Impressions Abdomen/Pelvis CT 10/27/17 1825 Signed Impressions: Service Date/Time: Friday, October 27, 2017 19:24 - CONCLUSION: 1. No acute findings within the abdomen and pelvis. Multiple layering gallstones or gallbladder sludge. Previous ventral hernia repair. Arnulfo Mayer MD Chest X-Ray 10/27/17 0000 Signed Impressions: Service Date/Time: Friday, October 27, 2017 16:18 - CONCLUSION: No evidence of acute cardiopulmonary disease. Enio Hernandez MD PE at Discharge GENERAL: This is a well-nourished, well-developed patient, in no apparent distress. CARDIOVASCULAR: Regular rate and regular rhythm without murmurs, gallops, or rubs. RESPIRATORY: Clear to auscultation. Breath sounds equal bilaterally. No wheezes , rales, or rhonchi. GASTROINTESTINAL: Abdomen soft, non-tender, nondistended. Normal, active bowel sounds MUSCULOSKELETAL: Extremities without clubbing, cyanosis, or edema. NEURO: Alert & Oriented x4 to person, place, time, situation. Moves all ext x4 Hospital Course 1. Urosepsis Patient with leukocytosis, fever, tachycardia UA consistent with urinary tract infection blood cultures negative/ UC with gram negative duke. IV fluid hydration continue IV Zosyn- will switch to po upon discharge. 2. Diabetes mellitus Holding home oral anti-hyperglycemics Sliding scale insulin Monitor blood glucose 3. Hypertension/hyperlipidemia/GERD Continue home medications 4. Retinitis pigmentosa Visual impairment precautions 5. DANIELA- improved. IV fluid hydration Monitor renal function Pt Condition on Discharge: Fair Discharge Disposition: Disch w/ Home Health Serv Discharge Time: <= 30 minutes Discharge Instructions DIET: Follow Instructions for: Heart Healthy Diet, Diabetic Diet Activities you can perform: Regular-No Restrictions Ernie Null MD Oct 29, 2017 08:09
--- NOTE | 2017-10-29 08:10 | HHI.FF ---
Face to Face Verification Diagnosis: (1) UTI (urinary tract infection) Physical Therapy Order: Evaluate and Treat Home Health Nursing Order: Medical education Signs/symptoms of disease process Medication education-adverse effect Nursing assessment with vital signs Ricardo catheter maintenance I have seen patient Sandy Macdonald on 10/29/17. My clinical findings support the need for the requested home health care services because: Ltd mobility - disease progression I certify that my clinical findings support that this patient is homebound because: Unsteady gait/balance Ernie Null MD Oct 29, 2017 08:10
[2017-10-29] MEDS: SODIUM CHLORIDE 0.9% FLUSH 10 ML FLUSH IV FLUSH SCH ×2 (09:00→21:00)
[2017-10-29] MEDS: INSULIN ASPART SUPPLEMENTAL SCALE SQ SCH ×4 (10:26→22:00)
[2017-10-29] MEDS: SIMETHICONE 80 MG CHEWABLE TAB CHEW PRN (10:26)
[2017-10-29] MEDS: NIFEdipine 30 MG SUSTAINED RELEASE TAB PO SCH (10:26)
[2017-10-29] MEDS: PRAVASTATIN SOD 40 MG TAB PO SCH (10:26)
[2017-10-29] MEDS: DOCUSATE SODIUM 50 MG/SENNA 8.6 MG TAB PO SCH ×2 (10:26→21:00)
[2017-10-29] MEDS: METOPROLOL TARTRATE 50 MG TAB PO SCH ×2 (10:26→22:01)
[2017-10-29] MEDS: PANTOPRAZOLE SOD 20 MG DELAYED RELEASE TAB PO SCH (10:26)
[2017-10-29] MEDS: ACYCLOVIR 200 MG CAP PO SCH ×3 (10:26→18:42)
[2017-10-29 10:52] VITALS: BP 175/84; PULSE 77; RESP 20; TEMP 98.1; O2SAT 99
[2017-10-29] MEDS ORDERED: CEFU1TAB18 PO (10:55)
[2017-10-29 20:03] VITALS: BP 159/80; PULSE 88; RESP 16; TEMP 98.1; O2SAT 88
[2017-10-30 00:32] VITALS: BP 156/82; PULSE 70; RESP 16; TEMP 97.7; O2SAT 99
[2017-10-30 04:54] VITALS: BP 179/86; PULSE 75; RESP 16; TEMP 98.2; O2SAT 100
[2017-10-30] MEDS: SODIUM CHLOR 0.9% 1000 ML INJ 1,000 ML IV SCH (05:20)
[2017-10-30] MEDS: PIPERACIL-TAZO 3.375 GM PREMIX 50 ML IV SCH (05:20)
[2017-10-30] MEDS: SIMETHICONE 80 MG CHEWABLE TAB CHEW PRN (05:28)
[2017-10-30 07:14] VITALS: BP 145/84; PULSE 75; RESP 18; TEMP 98.2; O2SAT 99
[2017-10-30] MEDS: DOCUSATE SODIUM 50 MG/SENNA 8.6 MG TAB PO SCH (09:34)
[2017-10-30] MEDS: METOPROLOL TARTRATE 50 MG TAB PO SCH (09:34)
[2017-10-30] MEDS: PRAVASTATIN SOD 40 MG TAB PO SCH (09:34)
[2017-10-30] MEDS: ONDANSETRON HCL 4 MG/2 ML VIAL IVP PRN (09:34)
[2017-10-30] MEDS: NIFEdipine 30 MG SUSTAINED RELEASE TAB PO SCH (09:34)
[2017-10-30] MEDS: ACYCLOVIR 200 MG CAP PO SCH (09:34)
[2017-10-30] MEDS: INSULIN ASPART SUPPLEMENTAL SCALE SQ SCH (09:34)
[2017-10-30] MEDS: PANTOPRAZOLE SOD 20 MG DELAYED RELEASE TAB PO SCH (09:34)
[2017-10-30] MEDS: SODIUM CHLORIDE 0.9% FLUSH 10 ML FLUSH IV FLUSH SCH (09:35)
--- NOTE | 2017-10-30 10:04 | HHI.PR ---
Subjective Remarks in no acute distress. overall looks fine. no fever. d/w the RN and no acute issues over night. Objective Vitals Vital Signs Date Time Temp Pulse Resp B/P (MAP) Pulse Ox O2 Delivery O2 Flow Rate FiO2 10/30/17 07:14 98.2 75 18 145/84 (104) 99 10/30/17 04:54 98.2 75 16 179/86 (117) 100 10/30/17 00:32 97.7 70 16 156/82 (106) 99 10/29/17 20:03 98.1 88 16 159/80 (106) 88 10/29/17 10:52 98.1 77 20 175/84 (114) 99 I/O 10/29/17 10/29/17 10/29/17 10/30/17 10/30/17 10/30/17 07:00 15:00 23:00 07:00 15:00 23:00 Intake Total 1000 ml Output Total 1500 ml Balance 1000 ml -1500 ml Intake IV Total 1000 ml Output Urine Total 1500 ml Result Diagram: 10/28/17 1145 10/29/17 0448 Imaging Last Impressions Abdomen/Pelvis CT 10/27/17 1825 Signed Impressions: Service Date/Time: Friday, October 27, 2017 19:24 - CONCLUSION: 1. No acute findings within the abdomen and pelvis. Multiple layering gallstones or gallbladder sludge. Previous ventral hernia repair. Arnulfo Mayer MD Chest X-Ray 10/27/17 0000 Signed Impressions: Service Date/Time: Friday, October 27, 2017 16:18 - CONCLUSION: No evidence of acute cardiopulmonary disease. Enio Hernandez MD Objective Remarks GENERAL: This is a well-nourished, well-developed patient, in no apparent distress. CARDIOVASCULAR: Regular rate and regular rhythm without murmurs, gallops, or rubs. RESPIRATORY: Clear to auscultation. Breath sounds equal bilaterally. No wheezes , rales, or rhonchi. GASTROINTESTINAL: Abdomen soft, non-tender, nondistended. Normal, active bowel sounds MUSCULOSKELETAL: Extremities without clubbing, cyanosis, or edema. NEURO: Alert & Oriented x4 to person, place, time, situation. Moves all ext x4 Procedures none Medications and IVs Inpatient Medications Acetaminophen (Tylenol) 650 mg Q4H PRN PO TEMP > 100.4 Last administered on 10/28 17:01; Start 10/27/17 at 23:00 Acyclovir (Zovirax) 400 mg TID PO Last administered on 10/30/17 09:34; Start at 09:00 Bisacodyl (Dulcolax Supp) 10 mg DAILY PRN RECTAL SEVERE CONSITIPATION; Start at 23:00 Dextrose (D50w (Vial) Inj) 50 ml UNSCH PRN IV PUSH HYPOGLYCEMIA-SEE COMMENTS; Start 10/27/17 at 23:15 Glucagon (Glucagon Inj) 1 mg UNSCH PRN OTHER HYPOGLYCEMIA-SEE COMMENTS; Start 10/27/17 at 23:15 Insulin Aspart (NovoLOG SUPPLEMENTAL SCALE) 1 ACHS SLIDING SCALE SQ Last administered on 10/30/17 09:34; Start 10/28/17 at 08:00 Lactulose (Lactulose Liq) 30 ml DAILY PRN PO SEVERE CONSITIPATION; Start at 23:00 Magnesium Hydroxide (Milk Of Magnesia Liq) 30 ml Q12H PRN PO Mild constipation ; Start 10/27/17 at 23:00 Metoprolol Tartrate (Lopressor) 50 mg BID PO Last administered on 10/30/17 09: 34; Start 10/28/17 at 09:00 Naloxone HCl (Narcan Inj) 0.4 mg UNSCH PRN IV PUSH SEE LABEL COMMENTS; Start at 23:00 Nifedipine (Procardia Xl) 30 mg DAILY PO Last administered on 10/30/17 09:34; Start 10/28/17 at 09:00 Ondansetron HCl (Zofran Inj) 4 mg Q6H PRN IVP NAUSEA OR VOMITING Last administered on 10/30/17 09:34; Start 10/27/17 at 23:00 Pantoprazole Sodium (Protonix) 20 mg DAILY PO Last administered on 10/30/17 09: 34; Start 10/28/17 at 09:00 Piperacillin Sod/ Tazobactam Sod 50 ml @ 100 mls/hr Q6H IV Last administered on 10/30/17 05:20; Start 10/28/17 at 00:00 Pravastatin Sodium (Pravachol) 40 mg DAILY PO Last administered on 4/6/18at 09: 34; Start 10/28/17 at 09:00 Senna/Docusate Sodium (Tamara-Colace) 1 tab BID PO Last administered on 10/30/17at 09:34; Start 10/28/17 at 09:00 Sennosides (Senokot) 17.2 mg Q12H PRN PO Moderate constipation; Start 10/27/17 at 23:00 Simethicone (Mylicon Chew) 80 mg PCHS PRN CHEW GAS RETENTION Last administered on 10/30/17at 05:28; Start 10/29/17 at 08:15 Sodium Chloride (NS Flush) 2 ml BID IV FLUSH Last administered on 10/28/17at 22: 26; Start 10/28/17 at 09:00 A/P Problem List: (1) UTI (urinary tract infection) ICD Code: N39.0 - Urinary tract infection, site not specified Status: Acute Assessment and Plan 1. Urosepsis Patient with leukocytosis, fever, tachycardia UA consistent with urinary tract infection blood cultures negative/ UC e-coli and klebsiella on IV Zosyn-switch to po antibiotic upon discharge. 2. Diabetes mellitus Holding home oral anti-hyperglycemics Sliding scale insulin Monitor blood glucose 3. Hypertension/hyperlipidemia/GERD Continue home medications 4. Retinitis pigmentosa Visual impairment precautions 5. DANIELA- improved. IV fluid hydration Monitor renal function consulted PT. Discharge Planning dc home later today . see med list; called in her pharmacy for Ceftin. f/u; pcp. case management for [facility]. d/w the patient and RN. Problem Qualifiers (1) UTI (urinary tract infection): Qualified Codes: T83.511A - Infection and inflammatory reaction due to indwelling urethral catheter, initial encounter; N39.0 - Urinary tract infection , site not specified Ernie Null MD Oct 30, 2017 10:04
== END 2017-10-30 12:30 | disposition home health service (06) | DRG 872 ==
LOC: NEPE 15:44 → NEDA 20:37 → NEPFCDU 21:00
PROVIDERS: ADMIT Internal Medicine; ATTEND Internal Medicine
DX: A41.9 Sepsis, unspecified organism (principal); T83.511A Infection and inflammatory reaction due to indwelling urethral catheter, initial encounter; N17.9 Acute kidney failure, unspecified; N39.0 Urinary tract infection, site not specified; I10 Essential (primary) hypertension; Y84.6 Urinary catheterization as the cause of abnormal reaction of the patient, or of later complication, without mention of misadventure at the time of the procedure; K21.9 Gastro-esophageal reflux disease without esophagitis; H35.52 Pigmentary retinal dystrophy; E78.5 Hyperlipidemia, unspecified; E11.9 Type 2 diabetes mellitus without complications; E78.00 Pure hypercholesterolemia, unspecified; M19.90 Unspecified osteoarthritis, unspecified site; Z83.3 Family history of diabetes mellitus
CPT/HCPCS: 51705; 71046; 74176; 80048; 80053; 81001; 82010; 82948; 83605; 83690; 85025; 85610; 85730; 87040; 87077; 87086; 87186; 87804; 96361; 96365; 96375; G8987-GP; G8988-GP; J1815; J2405; J2543; J7030

== ENCOUNTER 2017-11-10 13:12 | Inpatient (IN) | payer MEDICARE, MEDICAID ==
[~2017-11-10] VITALS: Ht 165.1 cm; Wt 80.0 kg
[~2017-11-10 13:12] MED LIST changes: +ACYC400T PO; -ASPI81TA11 PO; +CEFU1TAB18 PO; +ERGO2000 PO; -FLUC200T63 PO; +GLIP10TA6 PO; -HUMALOGP SQ; -LEVEMIR SQ; +LOVA40TA PO; -METO25 PO; +METO50TA PO; -MEVA40TA PO; -NIFE1TAB85 PO; +NIFE30TA61 PO; -NYSTT TOPICAL; +OMEP20TA93 PO; -PRIL20CA PO; -PRIN5TAB PO; -ZOVI400T15 PO
[2017-11-10 13:20] VITALS: BP 223/107; PULSE 111; RESP 20; TEMP 99.2; O2SAT 100
[2017-11-10] MEDS ORDERED: METF500T PO (13:24)
[2017-11-10 13:29] VITALS: BP 223/107; PULSE 111; RESP 20; TEMP 99.2; O2SAT 100
[2017-11-10 13:35] VITALS: BP 223/107; PULSE 105; RESP 20; TEMP 99.2; O2SAT 100
[2017-11-10] MEDS ORDERED: LISI40TA PO (13:42)
[2017-11-10] MEDS ORDERED: FLUC150T PO (13:42)
[2017-11-10] MEDS ORDERED: METF1000 PO (13:42)
[2017-11-10] MEDS ORDERED: PROM25TA10 PO (13:42)
[2017-11-10] MEDS ORDERED: ZOFR4TAB PO (13:42)
[2017-11-10] MEDS ORDERED: SODIUM CHLORID 0.9% 500 ML INJ 500 ML IV ONE ×2 (13:45→15:30)
[2017-11-10] MEDS ORDERED: SODIUM CHLORIDE 0.9% FLUSH 10 ML FLUSH IV FLUSH PRN ×2 (13:45→16:15)
--- NOTE | 2017-11-10 13:48 | PD ---
HPI Chief Complaint: Abdominal Pain Time Seen by Provider: 13:16 Travel History International Travel<30 days: No Contact w/Intl Traveler<30days: No Traveled to known affect area: No History of Present Illness HPI Patient comes in complaining today of suprapubic pressure, or frequent urination and cloudy urine as she has been told by staff. Patient is visually impaired. But is able to provide the entirety of history, patient states that along with the suprapubic discomfort the patient has also had nausea vomiting and unable to keep fluids down. Per patient she has allergies to iodine oxycodone ibuprofen Has past medical history significant with blindness, diabetes, hypertension, PFSH Past Medical History Arthritis: Yes (knee) Cancer: No Cardiovascular Problems: Yes High Cholesterol: Yes Diabetes: Yes Patient Takes Glucophage: Yes Endocrine: Yes Gastrointestinal Disorders: Yes GERD: Yes Genitourinary: Yes (ivey changed 10/16 due on 11/06) Hepatitis: No Hiatal Hernia: No Hypertension: Yes Immune Disorder: No Medical other: Yes (reflux, RETINITIS PIGMENTOSE) Musculoskeletal: No Neurologic: No Psychiatric: No Reproductive: No Respiratory: No Thyroid Disease: No Tetanus Vaccination: Unknown Influenza Vaccination: No ?: Not Past Surgical History Abdominal Surgery: Yes (hernia 2011) Gynecologic Surgery: Yes (hysterectomy 1997) Hysterectomy: Yes Pacemaker: No Other Surgery: Yes (BREAST REDUCTION 1988) Social History Alcohol Use: No Tobacco Use: No Substance Use: No Allergies-Medications (Allergen,Severity, Reaction): Coded Allergies: ibuprofen (Unverified Allergy, Intermediate, Nausea/Vomiting, 10/27/17) iodine (Unverified Allergy, Intermediate, Hives, 03/10/17) monosodium glutamate (Unverified Allergy, Intermediate, Rash, 03/10/17) oxycodone (Unverified Allergy, Intermediate, Nausea/Vomiting, 03/10/17) potassium iodide (Unverified Allergy, Intermediate, Hives, 03/10/17) povidone-iodine (Unverified Allergy, Intermediate, Hives, 03/10/17) shellfish derived (Unverified Allergy, Intermediate, Hives, 03/10/17) sodium iodide (Unverified Allergy, Intermediate, Hives, 03/10/17) sodium iodide (Unverified Allergy, Intermediate, Hives, 03/10/17) Reported Meds & Prescriptions Reported Meds & Active Scripts Active Reported Phenergan (Promethazine HCl) 25 Mg Tablet 25 Mg PO TID Fluconazole 150 Mg Tab 150 Mg PO ONCE 10 Days Vitamin D2 (Ergocalciferol) 2,000 Unit Tab 50,000 Units PO WEEKLY Review of Systems General / Constitutional: No: Fever Eyes: No: Visual changes HENT: No: Headaches Cardiovascular: No: Chest Pain or Discomfort Respiratory: No: Shortness of Breath Gastrointestinal: Positive: Nausea, Vomiting, Abdominal Pain Genitourinary: No: Dysuria Musculoskeletal: No: Pain Skin: No Rash Neurologic: No: Weakness Psychiatric: No: Depression Endocrine: No: Polydipsia Hematologic/Lymphatic: No: Easy Bruising Physical Exam Narrative GENERAL: Hypertensive systolic in the 200 SKIN: Warm and dry. HEAD: Atraumatic. Normocephalic. EYES: Pupils equal and round. No scleral icterus. No injection or drainage. ENT: No nasal bleeding or discharge. Mucous membranes pink and moist. NECK: Trachea midline. No JVD. CARDIOVASCULAR: Tachycardic regular rate and rhythm. RESPIRATORY: No accessory muscle use. Clear to auscultation. Breath sounds equal bilaterally. GASTROINTESTINAL: Obese abdomen soft, non-tender, nondistended. MUSCULOSKELETAL: Extremities without clubbing, cyanosis, or edema. No obvious deformities. NEUROLOGICAL: Awake and alert. No obvious cranial nerve deficits. Motor grossly within normal limits. Five out of 5 muscle strength in the arms and legs. Normal speech. PSYCHIATRIC: Appropriate mood and affect; insight and judgment normal. Data Data Last Documented VS Orders Orders Complete Blood Count With Diff (11/10/17 13:31) Comprehensive Metabolic Panel (11/10/17 13:31) Lipase (11/10/17 13:31) Prothrombin Time / Inr (Pt) (11/10/17 13:31) Act Partial Throm Time (Ptt) (11/10/17 13:31) Urinalysis - C+S If Indicated (11/10/17 13:31) Iv Access Insert/Monitor (11/10/17 13:31) Ecg Monitoring (11/10/17 13:31) Oximetry (11/10/17 13:31) NPO (11/10/17 13:31) Sodium Chloride 0.9% Flush (Ns Flush) (11/10/17 13:45) Sodium Chlorid 0.9% 500 Ml Inj (Ns 500 M (11/10/17 13:45) Sepsis Workup Initiated (11/10/17 ) Lactic Acid Sepsis Protocol (11/10/17 13:37) Blood Culture (11/10/17 13:37) Chest, Single Ap (11/10/17 13:37) Ct Abd/Pel W/O Iv Contrast (11/10/17 13:39) Arterial Blood Gas (Abg) (11/10/17 13:46) Blood Glucose (11/10/17 13:46) Urine Culture (11/10/17 13:44) Ondansetron Inj (Zofran Inj) (11/10/17 14:45) Ceftriaxone Inj (Rocephin Inj) (11/10/17 15:30) Sodium Chlorid 0.9% 500 Ml Inj (Ns 500 M (11/10/17 15:30) Admit Order (Ed Use Only) (11/10/17 16:08) Labs Laboratory Tests Test 11/10/17 13:40 11/10/17 13:44 11/10/17 15:05 Lactic Acid Level 0.9 mmol/L White Blood Count 21.0 TH/MM3 Red Blood Count 4.61 MIL/MM3 Hemoglobin 12.5 GM/DL Hematocrit 37.7 % Mean Corpuscular Volume 81.8 FL Mean Corpuscular Hemoglobin 27.2 PG Mean Corpuscular Hemoglobin Concent 33.2 % Red Cell Distribution Width 14.6 % Platelet Count 504 TH/MM3 Mean Platelet Volume 8.0 FL Neutrophils (%) (Auto) 83.9 % Lymphocytes (%) (Auto) 9.6 % Monocytes (%) (Auto) 5.4 % Eosinophils (%) (Auto) 0.7 % Basophils (%) (Auto) 0.4 % Neutrophils # (Auto) 17.6 TH/MM3 Lymphocytes # (Auto) 2.0 TH/MM3 Monocytes # (Auto) 1.1 TH/MM3 Eosinophils # (Auto) 0.1 TH/MM3 Basophils # (Auto) 0.1 TH/MM3 CBC Comment DIFF FINAL Differential Comment Prothrombin Time 10.7 SEC Prothromb Time International Ratio 1.1 RATIO Activated Partial Thromboplast Time 28.0 SEC Urine Color YELLOW Urine Turbidity CLOUDY Urine pH 5.5 Urine Specific Davin 1.019 Urine Protein 100 mg/dL Urine Glucose (UA) NEG mg/dL Urine Ketones NEG mg/dL Urine Occult Blood SMALL Urine Nitrite NEG Urine Bilirubin NEG Urine Urobilinogen LESS THAN 2.0 MG/DL Urine Leukocyte Esterase LARGE Urine RBC /hpf Urine WBC /hpf Urine WBC Clumps MANY Urine Amorphous Sediment FEW Urine Bacteria MOD /hpf Urine Mucus FEW /lpf Urine Yeast (Budding) MANY Microscopic Urinalysis Comment CULTURE INDICATED Blood Urea Nitrogen 27 MG/DL Creatinine 2.46 MG/DL Random Glucose 113 MG/DL Total Protein 8.0 GM/DL Albumin 3.4 GM/DL Calcium Level 9.4 MG/DL Alkaline Phosphatase 139 U/L Aspartate Amino Transf (AST/SGOT) 12 U/L Alanine Aminotransferase (ALT/SGPT) 16 U/L Total Bilirubin 0.4 MG/DL Sodium Level 140 MEQ/L Potassium Level 3.5 MEQ/L Chloride Level 106 MEQ/L Carbon Dioxide Level 20.3 MEQ/L Anion Gap 14 MEQ/L Estimat Glomerular Filtration Rate 21 ML/MIN Lipase 74 U/L Blood Gas Puncture Site RT RADIAL Blood Gas Patient Temperature 98.6 Blood Gas HCO3 16 mmol/L Blood Gas Base Excess -7.8 mmol/L Blood Gas Oxygen Saturation 95 % Arterial Blood pH 7.43 Arterial Blood Partial Pressure CO2 24 mmHg Arterial Blood Partial Pressure O2 83 mmHG Arterial Blood Oxygen Content 16.3 Vol % Arterial Blood Carboxyhemoglobin 1.2 % Arterial Blood Methemoglobin 0.7 % Blood Gas Hemoglobin 12.2 G/DL Blood Gas Inspired Oxygen 21 % MDM Medical Decision Making Medical Screen Exam Complete: Yes Emergency Medical Condition: Yes Medical Record Reviewed: Yes Interpretation(s) ABG on room air shows a pH of 7.434, PCO2 of 23.8, PaO2 of 82.9, based on this values the patient does not show any evidence of DKA Differential Diagnosis UTI versus colitis versus diverticulitis versus small bowel obstruction versus DKA versus dehydration versus anemia versus electrolyte imbalance Narrative Course CBC shows leukocytosis of 21,000 with 84% neutrophilia no anemia at this present time Insufficiency with BUN of 27 creatinine of 2.46 and a GFR of 21, lactic acid is only 0.9, normal liver functions normal pancreatic functions UA shows cloudy many WBC clumps and moderate bacteria consistent with UTI as well as urinary yeast noted Critical Care Narrative CRITICAL CARE NOTE: With evaluation of the patient, labs, EKG, receipt of radiologic studies, administration of medications, reevaluation the patient and discussion of the patient with the admitting physicians, the total critical care time was [60] minutes. Time to perform other separately billable procedures was not included in the critical care time. Diagnosis Primary Impression: Dehydration Additional Impressions: UTI Bilateral hydronephrosis DANIELA SEPSIS Admitting Information Admitting Physician Requests: Admit Scripts Cefuroxime (Ceftin) 250 Mg Tab 250 MG PO BID for Infection, #14 TAB Prov: Aguila Sanchez MD 11/16/17 Lisinopril (Lisinopril) 40 Mg Tab 40 MG PO BID for Blood Pressure Management, #30 TAB 0 Refills Prov: Aguila Sanchez MD 11/16/17 Metformin (Metformin) 500 Mg Tab 1500 MG PO DAILY IN THE AM for Blood Sugar Management, #30 TAB 0 Refills Prov: Aguila Sanchez MD 11/16/17 Glipizide (Glipizide) 10 Mg Tab 10 MG PO DAILY for Blood Sugar Management, #30 TAB 0 Refills Take 30 minutes before a meal Prov: Aguila Sanchez MD 11/16/17 Acyclovir (Acyclovir) 400 Mg Tab 400 MG PO TID for Mgmt Viral Infection, #30 TAB 0 Refills Prov: Aguila Sanchez MD 11/16/17 Metoprolol Tartrate (Metoprolol Tartrate) 50 Mg Tab 50 MG PO BID for Blood Pressure Management, #60 TAB 0 Refills Prov: Aguila Sanchez MD 11/16/17 Nifedipine ER 24 HR (Nifedipine ER 24 HR) 30 Mg Tab 30 MG PO DAILY for Blood Pressure Management, #30 TAB 0 Refills Prov: Aguila Sanchez MD 11/16/17 Omeprazole (Omeprazole) 20 Mg Tab 20 MG PO DAILY for Prevent Stress Ulcers, #30 TAB 0 Refills Prov: Aguila Sanchez MD 11/16/17 Lovastatin (Lovastatin) 40 Mg Tab 40 MG PO DAILY for Cholesterol Management, #30 TAB 0 Refills Prov: Aguila Sanchez MD 11/16/17 Gurpreet Wilkinson MD Nov 10, 2017 13:48
[2017-11-10 13:59] LABS: AUTOMATED NEUTROPHIL # 17.6 TH/MM3 (1.8-7.7); BASOPHIL # 0.1 TH/MM3 (0-0.2); BASOPHIL % 0.4 % (0.0-2.0); EOSINOPHIL # 0.1 TH/MM3 (0-0.4); EOSINOPHIL % 0.7 % (0.0-4.0); HEMATOCRIT 37.7 % (35.0-46.0); HEMOGLOBIN 12.5 GM/DL (11.6-15.3); LYMPH % 9.6 % (9.0-44.0); MEAN CELL VOLUME 81.8 FL (80.0-100.0); MEAN CORPUSCULAR HEMOGLOBIN 27.2 PG (27.0-34.0); MEAN CORPUSCULAR HGB CONC 33.2 % (32.0-36.0); MONO % 5.4 % (0.0-8.0); MONOCYTE # 1.1 TH/MM3 (0-0.9); NEUT % 83.9 % (16.0-70.0); PLATELET COUNT 504 TH/MM3 (150-450); RED BLOOD COUNT 4.61 MIL/MM3 (4.00-5.30); RED CELL DISTRIBUTION WIDTH 14.6 % (11.6-17.2)
[2017-11-10 14:15] LABS: INTERNATIONAL NORMALIZED RATIO 1.1 RATIO; PROTHROMBIN TIME - PATIENT 10.7 SEC (9.8-11.6)
[2017-11-10 14:18] LABS: AMORPHOUS SEDIMENT, URINE FEW; BACTERIA, URINE MOD /hpf; BILIRUBIN, URINE NEG (NEG); BLOOD, URINE SMALL (NEG); GLUCOSE,URINE NEG (NEG); KETONE, URINE NEG (NEG); MUCUS URINE FEW /lpf (OCC); NITRITE,URINE NEG (NEG); PH, URINE 5.5 (5.0-8.5); URINE COLOR YELLOW (YELLW/STRAW); URINE LEUKOCYTE ESTERASE LARGE (NEG); WHITE BLOOD CELL CLUMPS MANY
[2017-11-10 14:24] LABS: ALBUMIN 3.4 GM/DL (3.4-5.0); ALT (GPT) 16 U/L (10-53); AST (GOT) 12 U/L (15-37); BICARBONATE 20.3 MEQ/L (21.0-32.0); BLOOD UREA NITROGEN 27 MG/DL (7-18); CALCIUM 9.4 MG/DL (8.5-10.1); CHLORIDE 106 MEQ/L (98-107); CREATININE 2.46 MG/DL (0.50-1.00); GLOMERULAR FILTRATION RATE 21 ML/MIN (>89); GLUCOSE,RANDOM 113 MG/DL (74-106); SODIUM (NA) 140 MEQ/L (136-145)
--- NOTE | 2017-11-10 14:24 | RADRPT ---
EXAM DATE/TIME: 11/10/2017 14:02 [facility] COMPARISON: CHEST SINGLE AP, December 17, 2015, 12:23. INDICATIONS : Tachycardic. MEDICAL HISTORY : Hypertension. Diabetes mellitus type I. SURGICAL HISTORY : Hysterectomy. ENCOUNTER: Initial ACUITY: 1 day PAIN SCORE: 2/10 LOCATION: Left upper quadrant abdomen FINDINGS: A single view of the chest demonstrates the lungs to be symmetrically aerated without evidence of mas s, infiltrate or effusion. The cardiomediastinal contours are unremarkable. Osseous structures are intact. CONCLUSION: No acute disease. Aguila Patricio MD on November 10, 2017 at 14:22 Board Certified Radiologist. This report was verified electronically.
[2017-11-10 14:27] LABS: ALKALINE PHOSPHATASE 139 U/L (45-117); TOTAL BILIRUBIN ADULT 0.4 MG/DL (0.2-1.0)
[2017-11-10] MEDS ORDERED: ONDANSETRON HCL 4 MG/2 ML VIAL IV PUSH ONE (14:45)
--- NOTE | 2017-11-10 15:15 | RADRPT ---
EXAM DATE/TIME: 11/10/2017 14:16 [facility] COMPARISON: CT ABDOMEN & PELVIS W/O CONTRAST, October 27, 2017, 19:24. INDICATIONS : Abdominal pain with nausea and vomitting. ORAL CONTRAST: No oral contrast ingested. RADIATION DOSE: 16.19 CTDIvol (mGy) MEDICAL HISTORY : Hypertension. Gastroesophageal reflux disease. Diabetes SURGICAL HISTORY : Hysterectomy. Hernia repair. ENCOUNTER: Initial ACUITY: 1 day PAIN SCALE: 10/10 LOCATION: Abdomen TECHNIQUE: Volumetric scanning of the abdomen and pelvis was performed. Using automated exposure control and ad justment of the mA and/or kV according to patient size, radiation dose was kept as low as reasonably achievable to obtain optimal diagnostic quality images. DICOM format image data is available electro nically for review and comparison. FINDINGS: LOWER LUNGS: The visualized lower lungs are clear. LIVER: Homogeneous density without lesion. There is no dilation of the biliary tree. Multiple gallstones ar e again noted. SPLEEN: Normal size without lesion. PANCREAS: Within normal limits. KIDNEYS: Mild to moderate hydronephrosis has developed in both kidneys. There is significant perinephric stran ding and fluid. There are no obstructing renal or ureteral calculi. There is no evidence of focal mas s along the course of the ureters or within the urinary bladder. ADRENAL GLANDS: Within normal limits. VASCULAR: There is no aortic aneurysm. BOWEL/MESENTERY: The stomach, small bowel, and colon demonstrate no acute abnormality. There is no free intraperitone al air or fluid. ABDOMINAL WALL: Anterior abdominal wall mesh from prior ventral hernia repair is again noted. RETROPERITONEUM: There is no lymphadenopathy. BLADDER: The bladder is mildly distended. Ricardo catheter is noted in place. REPRODUCTIVE: Within normal limits. INGUINAL: There is no lymphadenopathy or hernia. MUSCULOSKELETAL: Within normal limits for patient age. CONCLUSION: 1. Interval development of mild to moderate bilateral hydronephrosis without evidence of obstructing lesion. 2. Mildly distended urinary bladder containing a Ricardo catheter. 3. Otherwise stable exam with no other evidence of acute process. Hossein Liriano MD on November 10, 2017 at 15:07 Board Certified Radiologist. This report was verified electronically.
[2017-11-10] MEDS ORDERED: cefTRIAXone INJ 1,000 MG in SODIUM CHLORIDE 0.9% INJ 100 ML IV ONE (15:30)
[2017-11-10] MEDS ORDERED: MAGNESIUM HYDROXIDE SUSP 30 ML CUP PO PRN (16:15)
[2017-11-10] MEDS ORDERED: BISACODYL 10 MG SUPP RECTAL PRN (16:15)
[2017-11-10] MEDS ORDERED: SENNOSIDES 8.6 MG TAB PO PRN (16:15)
[2017-11-10] MEDS ORDERED: NALOXONE HCL 0.4 MG/ML AMP IV PUSH PRN (16:15)
[2017-11-10] MEDS ORDERED: LACTULOSE SYRUP 20 GM/30 ML CUP PO PRN (16:15)
[2017-11-10] MEDS ORDERED: NIFEdipine 30 MG SUSTAINED RELEASE TAB PO ONE (16:15)
[2017-11-10 16:39] VITALS: BP 184/98; PULSE 117; RESP 20; TEMP 98.6; O2SAT 98
[2017-11-10] MEDS: INSULIN ASPART SUPPLEMENTAL SCALE SQ SCH ×2 (17:00→21:24)
--- NOTE | 2017-11-10 17:06 | HHI.HP ---
HPI Service [facility] Primary Care Physician Jaimie Pete MD Admission Diagnosis SEPSIS, UTI, DEHYDRATION, DANIELA Diagnoses: Travel History International Travel<30 Days: No Contact w/Intl Traveler <30 Da: No Traveled to Known Affected Are: No Sepsis Criteria Sepsis Criteria (SIRS+source): Infect source susp/known Severe Sepsis (+one): Organ Dysfunction, Acute Oliguria/Renal Failure Criteria Outcome: Meets SIRS criteria History of Present Illness 52-year-old female with a history of hypertension, diabetes mellitus, with recent admission, treated for UTI. Patient was doing okay at home, had taken her antibiotics. Yesterday reports sudden decrease in output from Ricardo catheter yesterday evening, along with onset of constant suprapubic pressure radiating to bilateral flanks, chills, nonbloody nausea, vomiting this morning, along with fatigue. She denies any chest pain or shortness of breath.. Review of Systems Except as stated in HPI: all other systems reviewed are Neg Past Family Social History Past Medical History retinitis pigmentosa diabetes mellitus hypertension hyperlipidemia GERD Chronic urinary obstruction Past Surgical History Breast reduction Hysterectomy Hernia repair. Reported Medications Reported Meds & Active Scripts Active Reported Zofran (Ondansetron HCl) 4 Mg Tab 8 Mg PO DAILY Lisinopril 40 Mg Tab 40 Mg PO BID Phenergan (Promethazine HCl) 25 Mg Tablet 25 Mg PO TID Fluconazole 150 Mg Tab 150 Mg PO ONCE 10 Days Metformin (Metformin HCl) 1,000 Mg Tab 1,000 Mg PO DAILY IN THE PM With a meal Metformin (Metformin HCl) 500 Mg Tab 1,500 Mg PO DAILY IN THE AM Vitamin D2 (Ergocalciferol) 2,000 Unit Tab 50,000 Units PO WEEKLY Glipizide 10 Mg Tab 10 Mg PO DAILY Take 30 minutes before a meal Acyclovir 400 Mg Tab 400 Mg PO TID Metoprolol Tartrate 50 Mg Tab 50 Mg PO BID Nifedipine ER 24 HR (Nifedipine) 30 Mg Tab 30 Mg PO DAILY Omeprazole 20 Mg Tab 20 Mg PO DAILY Lovastatin 40 Mg Tab 40 Mg PO DAILY Allergies: Coded Allergies: ibuprofen (Unverified Allergy, Intermediate, Nausea/Vomiting, 4/3/18) iodine (Unverified Allergy, Intermediate, Hives, 03/10/17) monosodium glutamate (Unverified Allergy, Intermediate, Rash, 03/10/17) oxycodone (Unverified Allergy, Intermediate, Nausea/Vomiting, 03/10/17) potassium iodide (Unverified Allergy, Intermediate, Hives, 03/10/17) povidone-iodine (Unverified Allergy, Intermediate, Hives, 03/10/17) shellfish derived (Unverified Allergy, Intermediate, Hives, 03/10/17) sodium iodide (Unverified Allergy, Intermediate, Hives, 03/10/17) sodium iodide (Unverified Allergy, Intermediate, Hives, 03/10/17) Family History Mother with history of diabetes mellitus. Sister with ovarian cancer. Social History Non-smoker. Nondrinker. Denies illicit drugs. Physical Exam Vital Signs Vital Signs Date Time Temp Pulse Resp B/P (MAP) Pulse Ox O2 Delivery O2 Flow Rate FiO2 11/10/17 16:39 98.6 117 20 184/98 (126) 98 Room Air 11/10/17 13:35 99.2 105 20 223/107 (145) 100 Room Air 11/10/17 13:29 99.2 111 20 223/107 (145) 100 Room Air 11/10/17 13:29 20 11/10/17 13:20 99.2 111 20 223/107 (145) 100 Physical Exam GENERAL: This is a well-nourished, well-developed patient, in no apparent distress. Oriented 3. SKIN: No rashes, ecchymoses or lesions. Cool and dry. HEAD: Atraumatic. Normocephalic. No temporal or scalp tenderness. EYES: Pupils equal round and reactive. Extraocular motions intact. No scleral icterus. No injection or drainage. ENT: Nose without bleeding, purulent drainage or septal hematoma. Throat without erythema, tonsillar hypertrophy or exudate. Uvula midline. Airway patent. NECK: Trachea midline. No JVD or lymphadenopathy. Supple, nontender, no meningeal signs. CARDIOVASCULAR: Regular rate and rhythm without murmurs, gallops, or rubs. RESPIRATORY: Clear to auscultation. Breath sounds equal bilaterally. No wheezes , rales, or rhonchi. GASTROINTESTINAL: Abdomen soft, nondistended. No hepato-splenomegaly, or palpable masses. No guarding. Patient does have suprapubic tenderness, as well as mild CVA tenderness. MUSCULOSKELETAL: Extremities without clubbing, cyanosis, or edema. No joint tenderness, effusion, or edema noted. No calf tenderness. Negative Homans sign bilaterally. NEUROLOGICAL: Awake and alert. Cranial nerves II through XII intact. Motor and sensory grossly within normal limits. Five out of 5 muscle strength in all muscle groups. Normal speech. Laboratory Laboratory Tests Test 11/10/17 13:40 11/10/17 13:44 11/10/17 15:05 Lactic Acid Level 0.9 White Blood Count 21.0 Red Blood Count 4.61 Hemoglobin 12.5 Hematocrit 37.7 Mean Corpuscular Volume 81.8 Mean Corpuscular Hemoglobin 27.2 Mean Corpuscular Hemoglobin Concent 33.2 Red Cell Distribution Width 14.6 Platelet Count 504 Mean Platelet Volume 8.0 Neutrophils (%) (Auto) 83.9 Lymphocytes (%) (Auto) 9.6 Monocytes (%) (Auto) 5.4 Eosinophils (%) (Auto) 0.7 Basophils (%) (Auto) 0.4 Neutrophils # (Auto) 17.6 Lymphocytes # (Auto) 2.0 Monocytes # (Auto) 1.1 Eosinophils # (Auto) 0.1 Basophils # (Auto) 0.1 CBC Comment DIFF FINAL Differential Comment Prothrombin Time 10.7 Prothromb Time International Ratio 1.1 Activated Partial Thromboplast Time 28.0 Urine Color YELLOW Urine Turbidity CLOUDY Urine pH 5.5 Urine Specific [place] 1.019 Urine Protein 100 Urine Glucose (UA) NEG Urine Ketones NEG Urine Occult Blood SMALL Urine Nitrite NEG Urine Bilirubin NEG Urine Urobilinogen LESS THAN 2.0 Urine Leukocyte Esterase LARGE Urine RBC Urine WBC Urine WBC Clumps MANY Urine Amorphous Sediment FEW Urine Bacteria MOD Urine Mucus FEW Urine Yeast (Budding) MANY Microscopic Urinalysis Comment CULTURE INDICATED Blood Urea Nitrogen 27 Creatinine 2.46 Random Glucose 113 Total Protein 8.0 Albumin 3.4 Calcium Level 9.4 Alkaline Phosphatase 139 Aspartate Amino Transf (AST/SGOT) 12 Alanine Aminotransferase (ALT/SGPT) 16 Total Bilirubin 0.4 Sodium Level 140 Potassium Level 3.5 Chloride Level 106 Carbon Dioxide Level 20.3 Anion Gap 14 Estimat Glomerular Filtration Rate 21 Lipase 74 Blood Gas Puncture Site RT RADIAL Blood Gas Patient Temperature 98.6 Blood Gas HCO3 16 Blood Gas Base Excess -7.8 Blood Gas Oxygen Saturation 95 Arterial Blood pH 7.43 Arterial Blood Partial Pressure CO2 24 Arterial Blood Partial Pressure O2 83 Arterial Blood Oxygen Content 16.3 Arterial Blood Carboxyhemoglobin 1.2 Arterial Blood Methemoglobin 0.7 Blood Gas Hemoglobin 12.2 Blood Gas Inspired Oxygen 21 Date/Time Source Procedure Growth Status 11/10/17 13:45 Blood Peripheral Aerobic Blood Culture Pending Received 11/10/17 13:45 Blood Peripheral Anaerobic Blood Culture Pending Received 11/10/17 13:44 Urine Random Urine Urine Culture Pending Received Result Diagram: 11/10/17 1344 11/10/17 1344 Imaging Last Impressions Abdomen/Pelvis CT 11/10/17 1339 Signed Impressions: Service Date/Time: Friday, November 10, 2017 14:16 - CONCLUSION: 1. Interval development of mild to moderate bilateral hydronephrosis without evidence of obstructing lesion. 2. Mildly distended urinary bladder containing a Ricardo catheter. 3. Otherwise stable exam with no other evidence of acute process. Hossein Liriano MD Chest X-Ray 11/10/17 1337 Signed Impressions: Service Date/Time: Friday, November 10, 2017 14:02 - CONCLUSION: No acute disease. Aguila Patricio MD Caprini VTE Risk Assessment Caprini VTE Risk Assessment: No/Low Risk (score <= 1) Caprini Risk Assessment Model Point Value = 1 Point Value = 2 Point Value = 3 Point Value = 5 Age 41-60 Minor surgery BMI > 25 kg/m2 Swollen legs Varicose veins or History of unexplained or recurrent spontaneous Oral contraceptives or hormone replacement Sepsis (< 1 month) Serious lung disease, including pneumonia (< 1 month) Abnormal pulmonary function Acute myocardial infarction Congestive heart failure (< 1 month) History of inflammatory bowel disease Medical patient at bed rest Age 61-74 Arthroscopic surgery Major open surgery (> 45 min) Laparoscopic surgery (> 45 min) Malignancy Confined to bed (> 72 hours) Immobilizing plaster cast Central venous access Age >= 75 History of VTE Family history of VTE Factor V Leiden Prothrombin [id number] Lupus anticoagulant Anticardiolipin antibodies Elevated serum homocysteine Heparin-induced thrombocytopenia Other congenital or acquired thrombophilia Stroke (< 1 month) Elective arthroplasty Hip, pelvis, or leg fracture Acute spinal cord injury (< 1 month) Prophylaxis Regimen Total Risk Factor Score Risk Level Prophylaxis Regimen 0-1 Low Early ambulation 2 Moderate Order ONE of the following: *Sequential Compression Device (SCD) *Heparin 5000 units SQ BID 3-4 Higher Order ONE of the following medications: *Heparin 5000 units SQ TID *Enoxaparin/Lovenox 40 mg SQ daily (WT < 150 kg, CrCl > 30 mL/min) *Enoxaparin/Lovenox 30 mg SQ daily (WT < 150 kg, CrCl > 10-29 mL/min) *Enoxaparin/Lovenox 30 mg SQ BID (WT < 150 kg, CrCl > 30 mL/min) AND/OR *Sequential Compression Device (SCD) 5 or more Highest Order ONE of the following medications: *Heparin 5000 units SQ TID (Preferred with Epidurals) *Enoxaparin/Lovenox 40 mg SQ daily (WT < 150 kg, CrCl > 30 mL/min) *Enoxaparin/Lovenox 30 mg SQ daily (WT < 150 kg, CrCl > 10-29 mL/min) *Enoxaparin/Lovenox 30 mg SQ BID (WT < 150 kg, CrCl > 30 mL/min) AND *Sequential Compression Device (SCD) Assessment and Plan Assessment and Plan //Severe sepsis //UTI. //Suspected bilateral pyelonephritis Leukocytosis 21, tachycardia 117, acute kidney injury = Lactate 0.9. = Urine with white blood cell clumps. = CT abdomen with bilateral hydronephrosis, distended bladder despite Ricardo catheter. Minimal output from Ricardo catheter since last night. Replace Ricardo. Discussed with nursing. = Start Zosyn. Follow-up blood and urine cultures. //Bilateral hydronephrosis on CT -Likely secondary to blocked Ricardo catheter. Change Ricardo.Consult patient's urologist as per patient request. //Accelerated hypertension. Systolic blood pressures up 220s on admission. Secondary to missing home medications due to nausea and vomiting this morning. Single dose of clonidine and nifedipine ordered. Will restart home meds. = Hold lisinopril secondary to AK I. //Acute kidney injury on chronic kidney disease stage III. = Likely secondary to obstruction, sepsis. //Retinitis pigmentosa. Visual impairment precautions. //Diabetes mellitus. Diabetic diet and insulin sliding scale. Discussed Condition With Patient, nurse, ED physician Physician Certification 2 Midnight Certification Type: Admission for Inpatient Services Order for Inpatient Services The services are ordered in accordance with Medicare regulations or non- Medicare payer requirements, as applicable. In the case of services not specified as inpatient-only, they are appropriately provided as inpatient services in accordance with the 2-midnight benchmark. Estimated LOS (days): 2 days is the estimated time the patient will need to remain in the hospital, assuming treatment plan goals are met and no additional complications. Post-Hospital Plan: Not yet determined Gunnar Patel MD Nov 10, 2017 17:06
[2017-11-10] MEDS: SODIUM CHLOR 0.9% 1000 ML INJ 1,000 ML IV SCH (18:48)
[2017-11-10] MEDS: PIPERACIL-TAZO 2.25 GM PREMIX 50 ML IV SCH (18:49)
[2017-11-10] MEDS: ACYCLOVIR 200 MG CAP PO SCH (19:22)
[2017-11-10 21:00] VITALS: BP 127/73; PULSE 110; RESP 19; O2SAT 99
[2017-11-10] MEDS: SODIUM CHLORIDE 0.9% FLUSH 10 ML FLUSH IV FLUSH SCH (21:00)
[2017-11-10] MEDS: cloNIDine HCL 0.1 MG TAB PO SCH (21:15)
[2017-11-10] MEDS: METOPROLOL TARTRATE 50 MG TAB PO SCH (21:15)
[2017-11-10 23:00] VITALS: BP 112/74; PULSE 87; RESP 14; O2SAT 100
[2017-11-11] MEDS: PIPERACIL-TAZO 2.25 GM PREMIX 50 ML IV SCH ×5 (02:12→23:42)
[2017-11-11] MEDS ORDERED: LORazepam 2 MG/ML VIAL IV PUSH ONE (02:30)
[2017-11-11 03:00] VITALS: BP 118/68; PULSE 71; RESP 14; O2SAT 98
[2017-11-11] MEDS: SODIUM CHLOR 0.9% 1000 ML INJ 1,000 ML IV SCH ×2 (05:18→07:00)
[2017-11-11] MEDS: INSULIN ASPART SUPPLEMENTAL SCALE SQ SCH ×4 (08:49→20:35)
[2017-11-11 09:14] LABS: AUTOMATED NEUTROPHIL # 16.1 TH/MM3 (1.8-7.7); BASOPHIL # 0.1 TH/MM3 (0-0.2); BASOPHIL % 0.7 % (0.0-2.0); EOSINOPHIL # 0.2 TH/MM3 (0-0.4); HEMATOCRIT 33.4 % (35.0-46.0); HEMOGLOBIN 10.9 GM/DL (11.6-15.3); MEAN CELL VOLUME 82.9 FL (80.0-100.0); MEAN CORPUSCULAR HEMOGLOBIN 27.2 PG (27.0-34.0); MEAN CORPUSCULAR HGB CONC 32.8 % (32.0-36.0); MEAN PLATELET VOLUME 8.2 FL (7.0-11.0); MONO % 7.1 % (0.0-8.0); MONOCYTE # 1.4 TH/MM3 (0-0.9); NEUT % 81.2 % (16.0-70.0); PLATELET COUNT 417 TH/MM3 (150-450); RED BLOOD COUNT 4.03 MIL/MM3 (4.00-5.30); RED CELL DISTRIBUTION WIDTH 14.9 % (11.6-17.2); WHITE BLOOD COUNT 19.9 TH/MM3 (4.0-11.0)
[2017-11-11 09:50] LABS: ALBUMIN 2.6 GM/DL (3.4-5.0); ALT (GPT) 14 U/L (10-53); AST (GOT) 13 U/L (15-37); BICARBONATE 21.1 MEQ/L (21.0-32.0); BLOOD UREA NITROGEN 24 MG/DL (7-18); CALCIUM 8.9 MG/DL (8.5-10.1); CHLORIDE 108 MEQ/L (98-107); CREATININE 1.96 MG/DL (0.50-1.00); GLOMERULAR FILTRATION RATE 27 ML/MIN (>89); GLUCOSE,RANDOM 184 MG/DL (74-106); SODIUM (NA) 139 MEQ/L (136-145)
[2017-11-11 10:02] LABS: ALKALINE PHOSPHATASE 118 U/L (45-117); TOTAL BILIRUBIN ADULT 0.3 MG/DL (0.2-1.0); TOTAL PROTEIN 6.8 GM/DL (6.4-8.2)
[2017-11-11] MEDS: cloNIDine HCL 0.1 MG TAB PO SCH ×2 (11:04→20:34)
[2017-11-11] MEDS: PRAVASTATIN SOD 40 MG TAB PO SCH (11:04)
[2017-11-11] MEDS: METOPROLOL TARTRATE 50 MG TAB PO SCH ×2 (11:04→20:34)
[2017-11-11] MEDS: PANTOPRAZOLE SOD 20 MG DELAYED RELEASE TAB PO SCH (11:04)
[2017-11-11] MEDS: ACYCLOVIR 200 MG CAP PO SCH ×3 (11:05→17:23)
[2017-11-11] MEDS: SODIUM CHLORIDE 0.9% FLUSH 10 ML FLUSH IV FLUSH SCH ×2 (11:05→20:34)
[2017-11-11 12:59] VITALS: BP 124/72; PULSE 72; RESP 15; O2SAT 99
--- NOTE | 2017-11-11 13:04 | PD.CONS ---
[facility] Service Urology Consult Requested By Dr. Patel Reason for Consult UTI, urinary retention Primary Care Physician Jaimie Pete MD Diagnosis: History of Present Illness 52-year-old female with a history of diabetes mellitus, neurogenic bladder, managed with chronic ivey catheter, who was recently in [place] from 10/27-10/30 for a UTI presented to ER yesterday due to sudden decrease in output from Ivey catheter along with acute onset of constant suprapubic pressure, 10/10, radiating to bilateral flanks, chills, nausea, vomiting. In ER, her Creatinine was elevated to 2.4. CT A/P showed bilateral hydronephrosis with distneded bladder. Her ivey catheter was exchanged and she immediately felt better. Overnight, her abdominal pain has resolved. She usually has the catheter changed every 3 weeks by [facility]. Review of Systems Eyes: COMPLAINS OF: Vision loss Except as stated in HPI: all other systems reviewed are Neg Past Family Social History Past Medical History retinitis pigmentosa diabetes mellitus hypertension hyperlipidemia GERD Neurogenic Bladder h/o UTI Past Surgical History hernia repair, breast reduction, hysterectomy Reported Medications Zofran (Ondansetron HCl) 4 Mg Tab 8 Mg PO DAILY Lisinopril 40 Mg Tab 40 Mg PO BID Phenergan (Promethazine HCl) 25 Mg Tablet 25 Mg PO TID Fluconazole 150 Mg Tab 150 Mg PO ONCE 10 Days Metformin (Metformin HCl) 1,000 Mg Tab 1,000 Mg PO DAILY IN THE PM With a meal Metformin (Metformin HCl) 500 Mg Tab 1,500 Mg PO DAILY IN THE AM Vitamin D2 (Ergocalciferol) 2,000 Unit Tab 50,000 Units PO WEEKLY Glipizide 10 Mg Tab 10 Mg PO DAILY Take 30 minutes before a meal Acyclovir 400 Mg Tab 400 Mg PO TID Metoprolol Tartrate 50 Mg Tab 50 Mg PO BID Nifedipine ER 24 HR (Nifedipine) 30 Mg Tab 30 Mg PO DAILY Omeprazole 20 Mg Tab 20 Mg PO DAILY Lovastatin 40 Mg Tab 40 Mg PO DAILY Allergies: Coded Allergies: ibuprofen (Unverified Allergy, Intermediate, Nausea/Vomiting, 10/27/17) iodine (Unverified Allergy, Intermediate, Hives, 03/10/17) monosodium glutamate (Unverified Allergy, Intermediate, Rash, 03/10/17) oxycodone (Unverified Allergy, Intermediate, Nausea/Vomiting, 03/10/17) potassium iodide (Unverified Allergy, Intermediate, Hives, 03/10/17) povidone-iodine (Unverified Allergy, Intermediate, Hives, 03/10/17) shellfish derived (Unverified Allergy, Intermediate, Hives, 03/10/17) sodium iodide (Unverified Allergy, Intermediate, Hives, 03/10/17) sodium iodide (Unverified Allergy, Intermediate, Hives, 03/10/17) Family History Denies nephrolithiasis, malignancies Social History Denies tobacco, EtOh, illicit drugs Physical Exam Vital Signs Date Time Temp Pulse Resp B/P (MAP) Pulse Ox O2 Delivery O2 Flow Rate FiO2 11/11/17 03:00 71 14 118/68 (85) 98 Room Air 11/10/17 23:00 87 14 112/74 (87) 100 Room Air 11/10/17 21:00 110 19 127/73 (91) 99 Room Air 11/10/17 16:39 98.6 117 20 184/98 (126) 98 Room Air 11/10/17 13:35 99.2 105 20 223/107 (145) 100 Room Air 11/10/17 13:29 99.2 111 20 223/107 (145) 100 Room Air 11/10/17 13:29 20 11/10/17 13:20 99.2 111 20 223/107 (145) 100 Physical Exam GENERAL: This is a well-nourished, well-developed patient, in no apparent distress. SKIN: No rashes, ecchymoses or lesions. Cool and dry. HEAD: Atraumatic. Normocephalic. No temporal or scalp tenderness. EYES: legally blind. Extraocular motions intact. No scleral icterus. No injection or drainage. ENT: Nose without bleeding, purulent drainage or septal hematoma. Throat without erythema, tonsillar hypertrophy or exudate. Uvula midline. Airway patent. NECK: Trachea midline. No JVD or lymphadenopathy. Supple, nontender, no meningeal signs. CARDIOVASCULAR: Regular rate and rhythm without murmurs, gallops, or rubs. RESPIRATORY: Clear to auscultation. Breath sounds equal bilaterally. No wheezes , rales, or rhonchi. GASTROINTESTINAL: Abdomen soft, non-tender, nondistended. No hepato-splenomegaly , or palpable masses. No guarding. GENITOURINARY: No CVAT tenderness bilaterally; ivey draining cloudy urine MUSCULOSKELETAL: Extremities without clubbing, cyanosis, or edema. No joint tenderness, effusion, or edema noted. No calf tenderness. Negative Homans sign bilaterally. NEUROLOGICAL: Awake and alert. Cranial nerves II through XII intact. Motor and sensory grossly within normal limits. Five out of 5 muscle strength in all muscle groups. Normal speech. Lab results reviewed: Yes (wbc, Cr improving) Laboratory Tests Test 11/10/17 13:40 11/10/17 13:44 11/10/17 15:05 11/11/17 08:30 Lactic Acid Level 0.9 White Blood Count 21.0 19.9 Red Blood Count 4.61 4.03 Hemoglobin 12.5 10.9 Hematocrit 37.7 33.4 Mean Corpuscular Volume 81.8 82.9 Mean Corpuscular Hemoglobin 27.2 27.2 Mean Corpuscular Hemoglobin Concent 33.2 32.8 Red Cell Distribution Width 14.6 14.9 Platelet Count 504 417 Mean Platelet Volume 8.0 8.2 Neutrophils (%) (Auto) 83.9 81.2 Lymphocytes (%) (Auto) 9.6 10.0 Monocytes (%) (Auto) 5.4 7.1 Eosinophils (%) (Auto) 0.7 1.0 Basophils (%) (Auto) 0.4 0.7 Neutrophils # (Auto) 17.6 16.1 Lymphocytes # (Auto) 2.0 2.0 Monocytes # (Auto) 1.1 1.4 Eosinophils # (Auto) 0.1 0.2 Basophils # (Auto) 0.1 0.1 CBC Comment DIFF FINAL DIFF FINAL Differential Comment Prothrombin Time 10.7 Prothromb Time International Ratio 1.1 Activated Partial Thromboplast Time 28.0 Urine Color YELLOW Urine Turbidity CLOUDY Urine pH 5.5 Urine Specific [place] 1.019 Urine Protein 100 Urine Glucose (UA) NEG Urine Ketones NEG Urine Occult Blood SMALL Urine Nitrite NEG Urine Bilirubin NEG Urine Urobilinogen LESS THAN 2.0 Urine Leukocyte Esterase LARGE Urine RBC Urine WBC Urine WBC Clumps MANY Urine Amorphous Sediment FEW Urine Bacteria MOD Urine Mucus FEW Urine Yeast (Budding) MANY Microscopic Urinalysis Comment CULTURE INDICATED Blood Urea Nitrogen 27 24 Creatinine 2.46 1.96 Random Glucose 113 184 Total Protein 8.0 6.8 Albumin 3.4 2.6 Calcium Level 9.4 8.9 Alkaline Phosphatase 139 118 Aspartate Amino Transf (AST/SGOT) 12 13 Alanine Aminotransferase (ALT/SGPT) 16 14 Total Bilirubin 0.4 0.3 Sodium Level 140 139 Potassium Level 3.5 3.6 Chloride Level 106 108 Carbon Dioxide Level 20.3 21.1 Anion Gap 14 10 Estimat Glomerular Filtration Rate 21 27 Lipase 74 Blood Gas Puncture Site RT RADIAL Blood Gas Patient Temperature 98.6 Blood Gas HCO3 16 Blood Gas Base Excess -7.8 Blood Gas Oxygen Saturation 95 Arterial Blood pH 7.43 Arterial Blood Partial Pressure CO2 24 Arterial Blood Partial Pressure O2 83 Arterial Blood Oxygen Content 16.3 Arterial Blood Carboxyhemoglobin 1.2 Arterial Blood Methemoglobin 0.7 Blood Gas Hemoglobin 12.2 Blood Gas Inspired Oxygen 21 Date/Time Source Procedure Growth Status 11/10/17 13:45 Blood Peripheral Aerobic Blood Culture - Preliminary NO GROWTH IN 1 DAY Resulted 11/10/17 13:45 Blood Peripheral Anaerobic Blood Culture - Preliminary NO GROWTH IN 1 DAY Resulted 11/10/17 13:44 Urine Random Urine Urine Culture - Preliminary Gram Negative Abdirashid Resulted Result Diagram: 11/11/17 0830 11/11/17 0830 Personally reviewed images: Yes (bilateral hydroureteronephrosis, distended bladder) Imaging Last Impressions Abdomen/Pelvis CT 11/10/17 1339 Signed Impressions: Service Date/Time: Friday, November 10, 2017 14:16 - CONCLUSION: 1. Interval development of mild to moderate bilateral hydronephrosis without evidence of obstructing lesion. 2. Mildly distended urinary bladder containing a Ivey catheter. 3. Otherwise stable exam with no other evidence of acute process. Hossein Liriano MD Chest X-Ray 11/10/17 1337 Signed Impressions: Service Date/Time: Friday, November 10, 2017 14:02 - CONCLUSION: No acute disease. Aguila Patricio MD Assessment and Plan Assessment and Plan 52 yo female h/o NGB with chronic ivey catheter presents with abdominal pain, ARF, bilateral hydroureteronephrosis secondary to urinary retention from non draining ivey catheter -Catheter successfully exchanged. Continue ivey. Change every 3 weeks -Creatinine improving. Should return to baseline. -Antibiotics per primary -f/U as outpatient as scheduled. Robert Shaffer MD Nov 11, 2017 13:04
[2017-11-11 13:44] VITALS: BP 161/81; PULSE 80; RESP 17; TEMP 99.8; O2SAT 98
[2017-11-11 16:00] VITALS: BP 153/67; PULSE 89; RESP 17; TEMP 98.1; O2SAT 97
--- NOTE | 2017-11-11 16:55 | HHI.PR ---
Subjective Remarks Follow-up for sepsis, pyelonephritis. Patient is currently doing well. No acute concerns. No chest pain, shortness of breath, fever or chills. Objective Vitals Vital Signs Date Time Temp Pulse Resp B/P (MAP) Pulse Ox O2 Delivery O2 Flow Rate FiO2 11/11/17 13:44 99.8 80 17 161/81 (107) 98 11/11/17 12:59 72 15 124/72 (89) 99 Room Air 11/11/17 03:00 71 14 118/68 (85) 98 Room Air 11/10/17 23:00 87 14 112/74 (87) 100 Room Air 11/10/17 21:00 110 19 127/73 (91) 99 Room Air I/O 11/10/17 11/10/17 11/10/17 11/11/17 11/11/17 11/11/17 07:00 15:00 23:00 07:00 15:00 23:00 Intake Total 1340 ml 50 ml 50 ml Output Total 1100 ml Balance 1340 ml 50 ml -1050 ml Intake Oral 240 ml IV Total 1100 ml 50 ml 50 ml Output Urine Total 1100 ml Result Diagram: 11/11/17 0830 11/11/17 0830 Imaging Last Impressions Abdomen/Pelvis CT 11/10/17 1339 Signed Impressions: Service Date/Time: Friday, November 10, 2017 14:16 - CONCLUSION: 1. Interval development of mild to moderate bilateral hydronephrosis without evidence of obstructing lesion. 2. Mildly distended urinary bladder containing a Ivey catheter. 3. Otherwise stable exam with no other evidence of acute process. Hossein Liriano MD Chest X-Ray 11/10/17 1337 Signed Impressions: Service Date/Time: Friday, November 10, 2017 14:02 - CONCLUSION: No acute disease. Aguila Patricio MD Objective Remarks GENERAL: Alert, oriented 3, and SKIN: Warm and dry. HEAD: Normocephalic. EYES: No scleral icterus. No injection or drainage. NECK: Supple, trachea midline. No JVD or lymphadenopathy. CARDIOVASCULAR: Regular rate and rhythm without murmurs, gallops, or rubs. RESPIRATORY: Breath sounds equal bilaterally. No accessory muscle use. GASTROINTESTINAL: Abdomen soft, non-tender, nondistended. MUSCULOSKELETAL: No cyanosis, or edema. BACK: Nontender without obvious deformity. No CVA tenderness. Procedures None A/P Problem List: (1) Sepsis ICD Code: A41.9 - Sepsis, unspecified organism Status: Acute (2) Acute pyelonephritis ICD Code: N10 - Acute pyelonephritis (3) Type 2 diabetes mellitus ICD Code: E11.9 - Type 2 diabetes mellitus without complications Status: Acute Assessment and Plan Ms. Macdonald is a 52 year old female who was admitted due to decreased urine output , flank pain. Sepsis (eukocytosis 21, tachycardia 117, suspected urinary tract infection) Acute pyelonephritis Bilateral hydronephrosis - Appreciate urology input, ivey cath was exchanged - Continue Zosyn. Follow urine cx Diabetes mellitus - Continue sliding scale insulin. Start Levemir 7 units QHS - Continue statin Acute kidney injury - Creatinine 2.46 --> 1.96 Retinitis pigmentosa. Visual impairment precautions. Full code. SCDs. Ekaterina Burton DO Nov 11, 2017 16:55
[2017-11-11 20:00] VITALS: BP 144/78; PULSE 83; RESP 18; O2SAT 95
[2017-11-11] MEDS: INSULIN DETEMIR 100 UNITS/ML VIAL SQ SCH (20:34)
[2017-11-12] VITALS: BP 171/82; PULSE 71; RESP 18; TEMP 97.7; O2SAT 96
[2017-11-12] MEDS: SODIUM CHLOR 0.9% 1000 ML INJ 1,000 ML IV SCH ×2 (04:15→16:10)
[2017-11-12] MEDS: PIPERACIL-TAZO 2.25 GM PREMIX 50 ML IV SCH ×4 (05:25→23:45)
[2017-11-12] MEDS: INSULIN ASPART SUPPLEMENTAL SCALE SQ SCH ×5 (08:00→20:42)
[2017-11-12] MEDS: METOPROLOL TARTRATE 50 MG TAB PO SCH ×2 (08:34→20:40)
[2017-11-12] MEDS: PANTOPRAZOLE SOD 20 MG DELAYED RELEASE TAB PO SCH (08:34)
[2017-11-12] MEDS: ACYCLOVIR 200 MG CAP PO SCH ×3 (08:34→17:36)
[2017-11-12] MEDS: cloNIDine HCL 0.1 MG TAB PO SCH ×2 (08:34→20:40)
[2017-11-12] MEDS: PRAVASTATIN SOD 40 MG TAB PO SCH (08:34)
[2017-11-12] MEDS: SODIUM CHLORIDE 0.9% FLUSH 10 ML FLUSH IV FLUSH SCH ×2 (08:35→20:40)
[2017-11-12 08:38] VITALS: BP 118/56; PULSE 97; RESP 18; TEMP 98; O2SAT 97
[2017-11-12 08:53] VITALS: BP 177/83; PULSE 78; RESP 18; TEMP 98.4
--- NOTE | 2017-11-12 11:38 | HHI.PR ---
Subjective Remarks Patient complains of irritation under her belly and her groin. We discussed candidiasis. She also has one toe with onychomycosis, treatments were not recommended at this time. No other complaints today. Cultures pending. Objective Vital Signs Date Time Temp Pulse Resp B/P (MAP) Pulse Ox O2 Delivery O2 Flow Rate FiO2 11/12/17 08:53 98.4 78 18 177/83 (114) 11/12/17 00:00 97.7 71 18 171/82 (111) 96 11/11/17 20:00 83 18 144/78 (100) 95 11/11/17 16:00 98.1 89 17 153/67 (95) 97 11/11/17 13:44 99.8 80 17 161/81 (107) 98 11/11/17 12:59 72 15 124/72 (89) 99 Room Air I/O 11/11/17 11/11/17 11/11/17 11/12/17 11/12/17 11/12/17 07:00 15:00 23:00 07:00 15:00 23:00 Intake Total 50 ml 50 ml 960 ml 1100 ml Output Total 1100 ml 800 ml Balance 50 ml -1050 ml 160 ml 1100 ml Intake Oral 960 ml IV Total 50 ml 50 ml 1100 ml Output Urine Total 1100 ml 800 ml # Bowel Movements 0 Result Diagram: 11/11/17 0830 11/11/17 0830 Objective Remarks GENERAL: NAD, A&Ox3, visually impaired. HEAD: Normocephalic. NECK: Supple, trachea midline. No lymphadenopathy. EYES: No scleral icterus. No injection or drainage. CARDIOVASCULAR: Regular rate and rhythm without murmurs, gallops, or rubs. RESPIRATORY: Breath sounds equal bilaterally. No accessory muscle use. GASTROINTESTINAL: Abdomen soft, non-tender, nondistended. MUSCULOSKELETAL: No cyanosis, or edema. SKIN: Warm and dry. Erythematous patching with islands indicative of candidiasis at pannus and bilateral groins. NAILS: Onychomycosis evident at third left toe nail. NEURO: No focal neurological deficitis. A/P Problem List: (1) Type 2 diabetes mellitus ICD Code: E11.9 - Type 2 diabetes mellitus without complications Status: Acute (2) Sepsis ICD Code: A41.9 - Sepsis, unspecified organism Status: Acute (3) Acute pyelonephritis ICD Code: N10 - Acute pyelonephritis (4) UTI (urinary tract infection) ICD Code: N39.0 - Urinary tract infection, site not specified Status: Acute (5) Obstructive uropathy ICD Code: N13.9 - Obstructive and reflux uropathy, unspecified Status: Acute Assessment and Plan 52 year old female who was admitted due to decreased urine output, flank pain; Sepsis and UTI. Sepsis Acute pyelonephritis Bilateral hydronephrosis Continue Zosyn Follow urine culture Ricardo catheter was exchanged Neurology following Diabetes mellitus type 2 Follow blood sugars Insulin sliding scale Diabetic diet Continue Levemir Acute kidney injury on chronic kidney disease Follow renal function Avoid nephrotoxins Retinitis pigmentosa. Visual impairment precautions. DVT prophylaxis SCDs. Anil Crockett MD Nov 12, 2017 11:37
[2017-11-12 16:00] VITALS: BP 176/112; PULSE 79; RESP 18; TEMP 98; O2SAT 96
[2017-11-12] MEDS: NYSTATIN 100,000 U/GM OINT 15 GM TUBE TOPICAL SCH ×2 (17:25→21:31)
[2017-11-12 18:33] VITALS: BP 156/84; PULSE 74; RESP 18; TEMP 98; O2SAT 96
[2017-11-12 20:00] VITALS: BP 188/92; PULSE 82; RESP 20; TEMP 98.6; O2SAT 95
[2017-11-12] MEDS: INSULIN DETEMIR 100 UNITS/ML VIAL SQ SCH (20:40)
[2017-11-13] VITALS: BP 178/83; PULSE 66; RESP 20; TEMP 98; O2SAT 98
[2017-11-13] MEDS: SODIUM CHLOR 0.9% 1000 ML INJ 1,000 ML IV SCH ×3 (04:05→22:08)
[2017-11-13] MEDS: PIPERACIL-TAZO 2.25 GM PREMIX 50 ML IV SCH ×3 (04:21→17:41)
[2017-11-13] MEDS: NYSTATIN 100,000 U/GM OINT 15 GM TUBE TOPICAL SCH ×3 (04:22→22:03)
[2017-11-13] MEDS: ONDANSETRON HCL 4 MG/2 ML VIAL IV PUSH PRN (05:10)
[2017-11-13 07:15] VITALS: BP 182/86; PULSE 72; RESP 18; TEMP 98.6; O2SAT 96
[2017-11-13 07:44] LABS: BASOPHIL # 0.1 TH/MM3 (0-0.2); BASOPHIL % 0.5 % (0.0-2.0); EOSINOPHIL # 0.2 TH/MM3 (0-0.4); EOSINOPHIL % 1.8 % (0.0-4.0); HEMOGLOBIN 10.2 GM/DL (11.6-15.3); LYMPH % 13.5 % (9.0-44.0); LYMPHOCYTE # 1.7 TH/MM3 (1.0-4.8); MEAN CELL VOLUME 82.8 FL (80.0-100.0); MEAN CORPUSCULAR HEMOGLOBIN 27.2 PG (27.0-34.0); MEAN CORPUSCULAR HGB CONC 32.9 % (32.0-36.0); MEAN PLATELET VOLUME 8.1 FL (7.0-11.0); MONO % 6.6 % (0.0-8.0); MONOCYTE # 0.9 TH/MM3 (0-0.9); NEUT % 77.6 % (16.0-70.0); PLATELET COUNT 418 TH/MM3 (150-450); RED BLOOD COUNT 3.74 MIL/MM3 (4.00-5.30); RED CELL DISTRIBUTION WIDTH 14.5 % (11.6-17.2); WHITE BLOOD COUNT 12.9 TH/MM3 (4.0-11.0)
[2017-11-13 08:14] LABS: ALBUMIN 2.4 GM/DL (3.4-5.0); ALKALINE PHOSPHATASE 152 U/L (45-117); ALT (GPT) 36 U/L (10-53); AST (GOT) 32 U/L (15-37); BICARBONATE 21.1 MEQ/L (21.0-32.0); BLOOD UREA NITROGEN 14 MG/DL (7-18); CALCIUM 8.6 MG/DL (8.5-10.1); CHLORIDE 111 MEQ/L (98-107); CREATININE 1.52 MG/DL (0.50-1.00); GLOMERULAR FILTRATION RATE 36 ML/MIN (>89); GLUCOSE,RANDOM 191 MG/DL (74-106); SODIUM (NA) 140 MEQ/L (136-145); TOTAL BILIRUBIN ADULT 0.3 MG/DL (0.2-1.0); TOTAL PROTEIN 6.5 GM/DL (6.4-8.2)
[2017-11-13] MEDS: ACYCLOVIR 200 MG CAP PO SCH ×3 (08:55→17:41)
[2017-11-13] MEDS: PRAVASTATIN SOD 40 MG TAB PO SCH (08:55)
[2017-11-13] MEDS: METOPROLOL TARTRATE 50 MG TAB PO SCH ×2 (08:56→22:01)
[2017-11-13] MEDS: PANTOPRAZOLE SOD 20 MG DELAYED RELEASE TAB PO SCH (08:56)
[2017-11-13] MEDS: cloNIDine HCL 0.1 MG TAB PO SCH ×2 (08:56→22:01)
[2017-11-13] MEDS: FLUCONAZOLE 400 MG PREMIX BAG 200 ML IV SCH (09:01)
[2017-11-13] MEDS: SODIUM CHLORIDE 0.9% FLUSH 10 ML FLUSH IV FLUSH SCH ×2 (09:01→21:00)
[2017-11-13] MEDS: INSULIN ASPART SUPPLEMENTAL SCALE SQ SCH ×4 (09:01→22:08)
--- NOTE | 2017-11-13 10:45 | HHI.FF ---
Face to Face Verification Diagnosis: (1) UTI (urinary tract infection) (2) Obstructive uropathy (3) Type 2 diabetes mellitus (4) Candidal UTI (urinary tract infection) (5) Senia infection of genital region Home Health Nursing Order: Signs/symptoms of disease process Wound care and dressing changes Nursing assessment with vital signs Instructions: Monitoring of Vitals and Abdomen/Groin candidiasis. I have seen patient Sandy Macdonald on 11/13/17. My clinical findings support the need for the requested home health care services because: Ltd mobility - disease progression Deconditioned w/ increased weakness Limited ability to care for self Infection w/ risk of complications I certify that my clinical findings support that this patient is homebound because: Unsafe to leave home unassisted Unable to use public transportation Anil Crockett MD Nov 13, 2017 10:45
[2017-11-13 12:00] VITALS: BP 172/83; PULSE 77; RESP 17; TEMP 98.5; O2SAT 97
--- NOTE | 2017-11-13 12:07 | HHI.PR ---
Subjective Remarks E. coli and Klebsiella present at last admits urinary tract infection. On cultures she is growing out Morganella with this urinary tract infection and manjit is present in the urine. Patient complains of back pain which is related to her pyelonephritis. No other complaints today. New treatments are started today. Objective Vital Signs Date Time Temp Pulse Resp B/P (MAP) Pulse Ox O2 Delivery O2 Flow Rate FiO2 11/13/17 07:15 98.6 72 18 182/86 (118) 96 11/13/17 00:00 98.0 66 20 178/83 (114) 98 11/12/17 20:00 98.6 82 20 188/92 (124) 95 11/12/17 18:33 98.0 74 18 156/84 (108) 96 11/12/17 16:00 98.0 79 18 176/112 (133) 96 I/O 11/12/17 11/12/17 11/12/17 11/13/17 11/13/17 11/13/17 07:00 15:00 23:00 07:00 15:00 23:00 Intake Total 1100 ml 50 ml 1870 ml Output Total 1350 ml Balance 1100 ml 50 ml 520 ml Intake Oral 820 ml IV Total 1100 ml 50 ml 1050 ml Output Urine Total 1350 ml Result Diagram: 11/13/17 0436 11/13/17 0436 Objective Remarks GENERAL: NAD, A&Ox3, visually impaired. HEAD: Normocephalic. NECK: Supple, trachea midline. No lymphadenopathy. EYES: No scleral icterus. No injection or drainage. CARDIOVASCULAR: Regular rate and rhythm without murmurs, gallops, or rubs. RESPIRATORY: Breath sounds equal bilaterally. No accessory muscle use. GASTROINTESTINAL: Abdomen soft, non-tender, nondistended. MUSCULOSKELETAL: No cyanosis, or edema. SKIN: Warm and dry. Erythematous patching with islands indicative of candidiasis at pannus and bilateral groins. NAILS: Onychomycosis evident at third left toe nail. NEURO: No focal neurological deficitis. A/P Problem List: (1) Type 2 diabetes mellitus ICD Code: E11.9 - Type 2 diabetes mellitus without complications Status: Acute (2) Sepsis ICD Code: A41.9 - Sepsis, unspecified organism Status: Acute (3) Acute pyelonephritis ICD Code: N10 - Acute pyelonephritis (4) UTI (urinary tract infection) ICD Code: N39.0 - Urinary tract infection, site not specified Status: Acute (5) Obstructive uropathy ICD Code: N13.9 - Obstructive and reflux uropathy, unspecified Status: Acute Assessment and Plan 52 year old female who was admitted due to decreased urine output, flank pain; Sepsis and UTI. Add IV Diflucan to treatments. Monitor for any reactions. Continue Zosyn to cover Morganella. Monitor clinical symptoms. Possible transition to oral antibiotics and discharge in 1-2 days. Sepsis Acute pyelonephritis Bilateral hydronephrosis Continue Zosyn Follow urine culture Ricardo catheter was exchanged Neurology following Diabetes mellitus type 2 Follow blood sugars Insulin sliding scale Diabetic diet Continue Levemir Acute kidney injury on chronic kidney disease Follow renal function Avoid nephrotoxins Retinitis pigmentosa. Visual impairment precautions. DVT prophylaxis SCDs. Anil Crockett MD Nov 13, 2017 12:07
[2017-11-13 12:12] VITALS: BP 182/80; PULSE 69; RESP 19; TEMP 97.8; O2SAT 98
[2017-11-13] MEDS: cloNIDine HCL 0.1 MG TAB PO PRN (14:39)
[2017-11-13 16:00] VITALS: BP 161/96; PULSE 69; RESP 17; TEMP 98.2; O2SAT 99
[2017-11-13 20:00] VITALS: BP 157/77; PULSE 78; RESP 18; TEMP 98.6; O2SAT 96
[2017-11-13] MEDS: INSULIN DETEMIR 100 UNITS/ML VIAL SQ SCH (22:08)
[2017-11-14] VITALS (7 sets, daily range): BP systolic 112–201; BP diastolic 67–98; PULSE 60–74; RESP 18–20; TEMP 97.7–98.7; O2SAT 97–99
[2017-11-14] MEDS: PIPERACIL-TAZO 2.25 GM PREMIX 50 ML IV SCH ×5 (00:35→23:10)
[2017-11-14] MEDS: ONDANSETRON HCL 4 MG/2 ML VIAL IV PUSH PRN ×2 (04:23→23:10)
[2017-11-14] MEDS: cloNIDine HCL 0.1 MG TAB PO PRN ×2 (04:24→12:04)
[2017-11-14] MEDS: NYSTATIN 100,000 U/GM OINT 15 GM TUBE TOPICAL SCH ×3 (05:30→21:05)
[2017-11-14] MEDS: INSULIN ASPART SUPPLEMENTAL SCALE SQ SCH ×4 (08:42→21:06)
[2017-11-14] MEDS: PANTOPRAZOLE SOD 20 MG DELAYED RELEASE TAB PO SCH (08:42)
[2017-11-14] MEDS: PRAVASTATIN SOD 40 MG TAB PO SCH (08:43)
[2017-11-14] MEDS: FLUCONAZOLE 400 MG PREMIX BAG 200 ML IV SCH (08:43)
[2017-11-14] MEDS: METOPROLOL TARTRATE 50 MG TAB PO SCH ×2 (08:43→21:05)
[2017-11-14] MEDS: cloNIDine HCL 0.1 MG TAB PO SCH ×2 (08:43→21:05)
[2017-11-14] MEDS: ACYCLOVIR 200 MG CAP PO SCH ×3 (08:43→17:55)
[2017-11-14] MEDS: SODIUM CHLORIDE 0.9% FLUSH 10 ML FLUSH IV FLUSH SCH ×2 (08:48→21:05)
[2017-11-14] MEDS: SODIUM CHLOR 0.9% 1000 ML INJ 1,000 ML IV SCH ×2 (14:00→23:12)
[2017-11-14] MEDS: SIMETHICONE SUSP DROPS 40 MG/0.6 ML 30 ML BTL PO PRN (15:06)
[2017-11-14] MEDS ORDERED: HYDROCHLOROTHIAZIDE 25 MG TAB PO ONE (16:45)
--- NOTE | 2017-11-14 16:47 | HHI.PR ---
Subjective Remarks Blood pressures are not controlled this afternoon. Patient has nausea this morning. E. coli and Klebsiella present at last admits urinary tract infection. On cultures she is growing out Morganella with this urinary tract infection and manjit is present in the urine. Objective Vital Signs Date Time Temp Pulse Resp B/P (MAP) Pulse Ox O2 Delivery O2 Flow Rate FiO2 11/14/17 13:17 198/92 (127) 11/14/17 12:00 97.7 60 20 200/98 (132) 97 11/14/17 08:00 98.4 64 20 201/93 (129) 98 11/14/17 04:00 183/94 (123) 11/14/17 00:00 97.9 62 18 172/84 (113) 99 11/13/17 20:00 98.6 78 18 157/77 (103) 96 I/O 11/13/17 11/13/17 11/13/17 11/14/17 11/14/17 11/14/17 07:00 15:00 23:00 07:00 15:00 23:00 Intake Total 50 ml 1010 ml 1252 ml 120 ml Output Total 1050 ml 1250 ml Balance 50 ml -40 ml 2 ml 120 ml Intake Oral 960 ml 480 ml 120 ml IV Total 50 ml 50 ml 772 ml Output Urine Total 1050 ml 1250 ml # Bowel Movements 0 1 Result Diagram: 11/13/1743511/13/17435 Objective Remarks GENERAL: NAD, A&Ox3, visually impaired. HEAD: Normocephalic. NECK: Supple, trachea midline. No lymphadenopathy. EYES: No scleral icterus. No injection or drainage. CARDIOVASCULAR: Regular rate and rhythm without murmurs, gallops, or rubs. RESPIRATORY: Breath sounds equal bilaterally. No accessory muscle use. GASTROINTESTINAL: Abdomen soft, non-tender, nondistended. MUSCULOSKELETAL: No cyanosis, or edema. SKIN: Warm and dry. Erythematous patching with islands indicative of candidiasis at pannus and bilateral groins. NAILS: Onychomycosis evident at third left toe nail. NEURO: No focal neurological deficitis. A/P Problem List: (1) Type 2 diabetes mellitus ICD Code: E11.9 - Type 2 diabetes mellitus without complications Status: Acute (2) Sepsis ICD Code: A41.9 - Sepsis, unspecified organism Status: Acute (3) Acute pyelonephritis ICD Code: N10 - Acute pyelonephritis (4) UTI (urinary tract infection) ICD Code: N39.0 - Urinary tract infection, site not specified Status: Acute (5) Obstructive uropathy ICD Code: N13.9 - Obstructive and reflux uropathy, unspecified Status: Acute Assessment and Plan 52 year old female who was admitted due to decreased urine output, flank pain; Sepsis and UTI. Continue IV Diflucan to treatments. Monitor for any reactions. Continue Zosyn to cover Morganella. Monitor clinical symptoms. Blood pressures are not under control. Blood pressure medications adjusted. Hydrochlorothiazide added to baseline treatment. Amlodipine increased. Metoprolol increased. Sepsis Acute pyelonephritis Bilateral hydronephrosis Continue Zosyn Continue IV Diflucan Follow urine culture Ricardo catheter was exchanged Neurology following Diabetes mellitus type 2 Follow blood sugars Insulin sliding scale Diabetic diet Continue Levemir Acute kidney injury on chronic kidney disease Follow renal function Avoid nephrotoxins Retinitis pigmentosa. Visual impairment precautions. DVT prophylaxis SCDs. Anil Crockett MD Nov 14, 2017 16:47
[2017-11-14] MEDS: INSULIN DETEMIR 100 UNITS/ML VIAL SQ SCH (21:06)
[2017-11-15] VITALS: BP 124/66; PULSE 76; RESP 17; TEMP 98.2; O2SAT 97
[2017-11-15] MEDS: ACETAMINOPHEN 325 MG TAB PO PRN ×2 (03:10→12:25)
[2017-11-15] MEDS: NYSTATIN 100,000 U/GM OINT 15 GM TUBE TOPICAL SCH ×3 (05:05→21:03)
[2017-11-15] MEDS: PIPERACIL-TAZO 2.25 GM PREMIX 50 ML IV SCH ×3 (05:05→17:02)
[2017-11-15 07:37] LABS: AUTOMATED NEUTROPHIL # 10.5 TH/MM3 (1.8-7.7); BASOPHIL # 0.1 TH/MM3 (0-0.2); BASOPHIL % 0.6 % (0.0-2.0); EOSINOPHIL # 0.3 TH/MM3 (0-0.4); EOSINOPHIL % 2.4 % (0.0-4.0); HEMOGLOBIN 10.9 GM/DL (11.6-15.3); LYMPH % 17.7 % (9.0-44.0); LYMPHOCYTE # 2.5 TH/MM3 (1.0-4.8); MEAN CELL VOLUME 81.5 FL (80.0-100.0); MEAN CORPUSCULAR HGB CONC 33.1 % (32.0-36.0); MEAN PLATELET VOLUME 7.5 FL (7.0-11.0); MONO % 6.1 % (0.0-8.0); MONOCYTE # 0.9 TH/MM3 (0-0.9); NEUT % 73.2 % (16.0-70.0); PLATELET COUNT 421 TH/MM3 (150-450); RED BLOOD COUNT 4.05 MIL/MM3 (4.00-5.30); RED CELL DISTRIBUTION WIDTH 14.2 % (11.6-17.2); WHITE BLOOD COUNT 14.4 TH/MM3 (4.0-11.0)
[2017-11-15 07:55] LABS: ALBUMIN 2.3 GM/DL (3.4-5.0); ALT (GPT) 32 U/L (10-53); AST (GOT) 13 U/L (15-37); BICARBONATE 23.5 MEQ/L (21.0-32.0); BLOOD UREA NITROGEN 8 MG/DL (7-18); CALCIUM 8.9 MG/DL (8.5-10.1); CHLORIDE 108 MEQ/L (98-107); CREATININE 1.36 MG/DL (0.50-1.00); GLOMERULAR FILTRATION RATE 41 ML/MIN (>89); GLUCOSE,RANDOM 215 MG/DL (74-106); SODIUM (NA) 141 MEQ/L (136-145)
[2017-11-15 07:57] LABS: ALKALINE PHOSPHATASE 168 U/L (45-117); TOTAL BILIRUBIN ADULT 0.3 MG/DL (0.2-1.0); TOTAL PROTEIN 6.6 GM/DL (6.4-8.2)
[2017-11-15 08:00] VITALS: BP 195/91; PULSE 66; RESP 18; TEMP 98.1; O2SAT 97
[2017-11-15 08:27] LABS: LYMPHOCYTES 21 % (9-44); METAMYELOCYTES 1 % (0-1); MONOCYTES 4 % (0-8); MYELOCYTES 1 % (0-0); NEUTROPHIL # MANUAL DIFF 10.7 TH/MM3 (1.8-7.7); POLYS (SEG NEUTROPHILS) 72 % (16-70)
[2017-11-15] MEDS: SODIUM CHLORIDE 0.9% FLUSH 10 ML FLUSH IV FLUSH SCH ×2 (09:00→21:03)
[2017-11-15] MEDS: FLUCONAZOLE 400 MG PREMIX BAG 200 ML IV SCH (09:29)
[2017-11-15] MEDS: INSULIN ASPART SUPPLEMENTAL SCALE SQ SCH ×4 (09:30→21:04)
[2017-11-15] MEDS: SIMETHICONE SUSP DROPS 40 MG/0.6 ML 30 ML BTL PO PRN (09:30)
[2017-11-15] MEDS: HYDROCHLOROTHIAZIDE 25 MG TAB PO SCH (09:35)
[2017-11-15] MEDS: cloNIDine HCL 0.1 MG TAB PO SCH ×2 (09:36→21:02)
[2017-11-15] MEDS: PRAVASTATIN SOD 40 MG TAB PO SCH (09:36)
[2017-11-15] MEDS: PANTOPRAZOLE SOD 20 MG DELAYED RELEASE TAB PO SCH (09:36)
[2017-11-15] MEDS: ACYCLOVIR 200 MG CAP PO SCH ×3 (09:36→17:02)
[2017-11-15] MEDS: METOPROLOL TARTRATE 50 MG TAB PO SCH ×2 (09:36→21:02)
[2017-11-15 12:00] VITALS: BP 198/93; PULSE 65; RESP 18; TEMP 98.3; O2SAT 97
[2017-11-15] MEDS ORDERED: LISINOPRIL 20 MG TAB PO ONE (12:00)
[2017-11-15] MEDS: cloNIDine HCL 0.1 MG TAB PO PRN (12:20)
[2017-11-15] MEDS: SODIUM CHLOR 0.9% 1000 ML INJ 1,000 ML IV SCH (14:22)
--- NOTE | 2017-11-15 15:38 | HHI.PR ---
Subjective Remarks Blood pressures are not controlled. Further adjustments made. Patient has no new complaint. Her rash is improving. Objective Vital Signs Date Time Temp Pulse Resp B/P (MAP) Pulse Ox O2 Delivery O2 Flow Rate FiO2 11/15/17 12:00 98.3 65 18 198/93 (128) 97 11/15/17 08:00 98.1 66 18 195/91 (125) 97 11/15/17 00:00 98.2 76 17 124/66 (85) 97 11/14/17 20:00 98.7 74 18 139/67 (91) 98 11/14/17 16:00 97.9 69 19 171/81 (111) 98 I/O 11/14/17 11/14/17 11/14/17 11/15/17 11/15/17 11/15/17 07:00 15:00 23:00 07:00 15:00 23:00 Intake Total 1252 ml 120 ml 960 ml 240 ml Output Total 1250 ml 1600 ml 240 ml Balance 2 ml 120 ml -640 ml 0 ml Intake Oral 480 ml 120 ml 960 ml 240 ml IV Total 772 ml Output Urine Total 1250 ml 1600 ml 240 ml # Bowel Movements 1 1 Result Diagram: 11/15/1718 11/15/1718 Objective Remarks GENERAL: NAD, A&Ox3, visually impaired. HEAD: Normocephalic. NECK: Supple, trachea midline. No lymphadenopathy. EYES: No scleral icterus. No injection or drainage. CARDIOVASCULAR: Regular rate and rhythm without murmurs, gallops, or rubs. RESPIRATORY: Breath sounds equal bilaterally. No accessory muscle use. GASTROINTESTINAL: Abdomen soft, non-tender, nondistended. MUSCULOSKELETAL: No cyanosis, or edema. SKIN: Warm and dry. Improving erythematous patching with islands indicative of candidiasis at pannus and bilateral groins. NAILS: Onychomycosis evident at third left toe nail. NEURO: No focal neurological deficitis. A/P Problem List: (1) Type 2 diabetes mellitus ICD Code: E11.9 - Type 2 diabetes mellitus without complications Status: Acute (2) Sepsis ICD Code: A41.9 - Sepsis, unspecified organism Status: Acute (3) Acute pyelonephritis ICD Code: N10 - Acute pyelonephritis (4) UTI (urinary tract infection) ICD Code: N39.0 - Urinary tract infection, site not specified Status: Acute (5) Obstructive uropathy ICD Code: N13.9 - Obstructive and reflux uropathy, unspecified Status: Acute Assessment and Plan 52 year old female who was admitted due to decreased urine output, flank pain; Sepsis and UTI. Labs reviewed. Blood work is stable. Inguinal candidiasis is improved. Continue nystatin ointment. Patient's blood pressures are not controlled. Hydrochlorothiazide added. Lisinopril added. Monitor renal function. Renal function continues to improve. His continue IV fluids. Blood pressures need to be more controlled prior to consideration for discharge. Sepsis Acute pyelonephritis Bilateral hydronephrosis Continue Zosyn Continue IV Diflucan Follow urine culture Ricardo catheter was exchanged Neurology following Hypertensive urgency Continue to adjust blood pressure treatments to control Follow blood pressures Diabetes mellitus type 2 Follow blood sugars Insulin sliding scale Diabetic diet Continue Levemir Acute kidney injury on chronic kidney disease Follow renal function Avoid nephrotoxins Retinitis pigmentosa. Visual impairment precautions. DVT prophylaxis SCDs. Discharge planning Blood pressures need to be more controlled prior to consideration for discharge. Anil Crockett MD Nov 15, 2017 15:38
[2017-11-15 16:00] VITALS: BP 157/74; PULSE 63; RESP 18; TEMP 97.7; O2SAT 97
[2017-11-15 20:00] VITALS: BP 147/76; PULSE 63; RESP 17; TEMP 97.5; O2SAT 99
[2017-11-15] MEDS: INSULIN DETEMIR 100 UNITS/ML VIAL SQ SCH (21:03)
[2017-11-16] VITALS: BP 129/70; PULSE 68; RESP 17; TEMP 97; O2SAT 99
[2017-11-16] MEDS: PIPERACIL-TAZO 2.25 GM PREMIX 50 ML IV SCH ×3 (01:04→12:20)
[2017-11-16] MEDS: ACETAMINOPHEN 325 MG TAB PO PRN (05:03)
[2017-11-16] MEDS: NYSTATIN 100,000 U/GM OINT 15 GM TUBE TOPICAL SCH ×2 (05:03→12:32)
[2017-11-16] MEDS: ONDANSETRON HCL 4 MG/2 ML VIAL IV PUSH PRN (05:08)
[2017-11-16 08:00] VITALS: BP 154/77; PULSE 68; RESP 18; TEMP 98.1; O2SAT 97
[2017-11-16] MEDS: ACYCLOVIR 200 MG CAP PO SCH ×2 (08:26→12:30)
[2017-11-16] MEDS: METOPROLOL TARTRATE 50 MG TAB PO SCH (08:27)
[2017-11-16] MEDS: cloNIDine HCL 0.1 MG TAB PO SCH (08:27)
[2017-11-16] MEDS: HYDROCHLOROTHIAZIDE 25 MG TAB PO SCH (08:27)
[2017-11-16] MEDS: PRAVASTATIN SOD 40 MG TAB PO SCH (08:27)
[2017-11-16] MEDS: PANTOPRAZOLE SOD 20 MG DELAYED RELEASE TAB PO SCH (08:27)
[2017-11-16] MEDS: INSULIN ASPART SUPPLEMENTAL SCALE SQ SCH ×2 (08:28→12:30)
[2017-11-16] MEDS: FLUCONAZOLE 400 MG PREMIX BAG 200 ML IV SCH (08:28)
[2017-11-16] MEDS: SODIUM CHLORIDE 0.9% FLUSH 10 ML FLUSH IV FLUSH SCH (08:28)
[2017-11-16] MEDS ORDERED: LISINOPRIL 20 MG TAB PO SCH (09:00)
[2017-11-16 12:00] VITALS: BP 148/71; PULSE 69; RESP 16; TEMP 97.9; O2SAT 96
[2017-11-16] MEDS ORDERED: LOVA40TA PO (15:06)
[2017-11-16] MEDS ORDERED: NIFE30TA61 PO (15:06)
[2017-11-16] MEDS ORDERED: GLIP10TA6 PO (15:06)
[2017-11-16] MEDS ORDERED: METO50TA PO (15:06)
[2017-11-16] MEDS ORDERED: LISI40TA PO (15:06)
[2017-11-16] MEDS ORDERED: CEFU1TAB18 PO (15:06)
[2017-11-16] MEDS ORDERED: OMEP20TA93 PO (15:06)
[2017-11-16] MEDS ORDERED: ACYC400T PO (15:06)
[2017-11-16] MEDS ORDERED: METF500T PO (15:06)
--- NOTE | 2017-11-16 15:09 | HHI.PR ---
Subjective Remarks Follow-up sepsis/pyelonephritis November 16, 2017-patient seen and examined, denies any pain, shortness of breath. BP controlled. Objective Vitals Vital Signs Date Time Temp Pulse Resp B/P (MAP) Pulse Ox O2 Delivery O2 Flow Rate FiO2 11/16/17 12:00 97.9 69 16 148/71 (96) 96 11/16/17 08:00 98.1 68 18 154/77 (102) 97 11/16/17 00:00 97.0 68 17 129/70 (89) 99 11/15/17 20:00 97.5 63 17 147/76 (99) 99 11/15/17 16:00 97.7 63 18 157/74 (101) 97 I/O 11/15/17 11/15/17 11/15/17 11/16/17 11/16/17 11/16/17 06:59 14:59 22:59 06:59 14:59 22:59 Intake Total 240 ml 1150 ml Output Total 240 ml 2250 ml Balance 0 ml -1100 ml Intake Oral 240 ml 1100 ml IV Total 50 ml Output Urine Total 240 ml 2250 ml # Bowel Movements 1 Result Diagram: 11/15/17 0718 11/15/17 0718 Imaging Last Impressions Abdomen/Pelvis CT 11/10/17 1339 Signed Impressions: Service Date/Time: Friday, November 10, 2017 14:16 - CONCLUSION: 1. Interval development of mild to moderate bilateral hydronephrosis without evidence of obstructing lesion. 2. Mildly distended urinary bladder containing a Ricardo catheter. 3. Otherwise stable exam with no other evidence of acute process. Hossein Liriano MD Chest X-Ray 11/10/17 1337 Signed Impressions: Service Date/Time: Friday, November 10, 2017 14:02 - CONCLUSION: No acute disease. Aguila Patricio MD Objective Remarks GENERAL: NAD SKIN: Warm and dry. HEAD: Normocephalic. EYES: No scleral icterus. No injection or drainage. NECK: Supple, trachea midline. No JVD or lymphadenopathy. CARDIOVASCULAR: Regular rate and rhythm without murmurs, gallops, or rubs. RESPIRATORY: Breath sounds equal bilaterally. No accessory muscle use. GASTROINTESTINAL: Abdomen soft, non-tender, nondistended. MUSCULOSKELETAL: No cyanosis, or edema. BACK: Nontender without obvious deformity. No CVA tenderness. Procedures None A/P Problem List: (1) Sepsis ICD Code: A41.9 - Sepsis, unspecified organism Status: Acute (2) Acute pyelonephritis ICD Code: N10 - Acute pyelonephritis (3) Type 2 diabetes mellitus ICD Code: E11.9 - Type 2 diabetes mellitus without complications Status: Acute Assessment and Plan 52-year-old female with Sepsis-Resolved Acute pyelonephritis Bilateral hydronephrosis Continue Zosyn and IV Diflucan however will discharge home on p.o. Ceftin Ricardo catheter was exchanged Hypertensive urgency BP currently controlled, continue her current medication Diabetes mellitus type 2 Follow blood sugars Insulin sliding scale Diabetic diet Continue Levemir Acute kidney injury on chronic kidney disease Follow renal function Avoid nephrotoxins Retinitis pigmentosa. Visual impairment precautions. DVT prophylaxis SCDs. Aguila Sanchez MD Nov 16, 2017 15:09
--- NOTE | 2017-11-16 15:11 | HHI.DS ---
Discharge Summary Admission Date Nov 10, 2017 at 16:15 Discharge Date: Nov 16, 2017 Admitting Diagnosis SEPSIS, UTI, DEHYDRATION, DANIELA (1) Sepsis ICD Code: A41.9 - Sepsis, unspecified organism Status: Acute (2) Acute pyelonephritis ICD Code: N10 - Acute pyelonephritis (3) Type 2 diabetes mellitus ICD Code: E11.9 - Type 2 diabetes mellitus without complications Status: Acute Procedures None Brief History - From Admission 52-year-old female with a history of hypertension, diabetes mellitus, with recent admission, treated for UTI. Patient was doing okay at home, had taken her antibiotics. Yesterday reports sudden decrease in output from Ricardo catheter yesterday evening, along with onset of constant suprapubic pressure radiating to bilateral flanks, chills, nonbloody nausea, vomiting this morning, along with fatigue. She denies any chest pain or shortness of breath.. CBC/BMP: 11/15/17 0718 11/15/17 0718 Significant Findings Laboratory Tests Test 11/15/17 07:18 White Blood Count 14.4 TH/MM3 (4.0-11.0) Hemoglobin 10.9 GM/DL (11.6-15.3) Hematocrit 33.0 % (35.0-46.0) Neutrophils (%) (Auto) 73.2 % (16.0-70.0) Neutrophils # (Auto) 10.5 TH/MM3 (1.8-7.7) Neutrophils % (Manual) 72 % (16-70) Neutrophils # (Manual) 10.7 TH/MM3 (1.8-7.7) Myelocytes 1 % (0-0) Creatinine 1.36 MG/DL (0.50-1.00) Random Glucose 215 MG/DL (74-106) Albumin 2.3 GM/DL (3.4-5.0) Alkaline Phosphatase 168 U/L (45-117) Aspartate Amino Transf (AST/SGOT) 13 U/L (15-37) Chloride Level 108 MEQ/L (98-107) Estimat Glomerular Filtration Rate 41 ML/MIN (>89) Imaging Last Impressions Abdomen/Pelvis CT 11/10/17 1339 Signed Impressions: Service Date/Time: Friday, November 10, 2017 14:16 - CONCLUSION: 1. Interval development of mild to moderate bilateral hydronephrosis without evidence of obstructing lesion. 2. Mildly distended urinary bladder containing a Ricardo catheter. 3. Otherwise stable exam with no other evidence of acute process. Hossein Liriano MD Chest X-Ray 11/10/17 1337 Signed Impressions: Service Date/Time: Friday, November 10, 2017 14:02 - CONCLUSION: No acute disease. Aguila Patricio MD PE at Discharge GENERAL: NAD SKIN: Warm and dry. HEAD: Normocephalic. EYES: No scleral icterus. No injection or drainage. NECK: Supple, trachea midline. No JVD or lymphadenopathy. CARDIOVASCULAR: Regular rate and rhythm without murmurs, gallops, or rubs. RESPIRATORY: Breath sounds equal bilaterally. No accessory muscle use. GASTROINTESTINAL: Abdomen soft, non-tender, nondistended. MUSCULOSKELETAL: No cyanosis, or edema. BACK: Nontender without obvious deformity. No CVA tenderness. Hospital Course While in hospital, patient was treated for: Sepsis-Resolved Acute pyelonephritis Bilateral hydronephrosis She was treated with Zosyn and IV Diflucan however will discharge home on p.o. Ceftin Ricardo catheter was exchanged by urology who was consulted Hypertensive urgency BP currently controlled, Her medication was adjusted accordingly Diabetes mellitus type 2 Insulin sliding scale Diabetic diet Oral hypoglycemic agent was held, and patient was started on Levemir Acute kidney injury on chronic kidney disease Follow renal function Avoid nephrotoxins Renal function improved prior to discharge Retinitis pigmentosa. Visual impairment precautions. DVT prophylaxis SCDs. Pt Condition on Discharge: Good Discharge Disposition: Disch w/ Home Health Serv Discharge Time: > 30 minutes Discharge Instructions DIET: Follow Instructions for: Diabetic Diet Activities you can perform: Regular-No Restrictions Follow up Referrals: PCP Follow-up - 1 Week New Medications: Cefuroxime (Ceftin) 250 Mg Tab 250 MG PO BID for Infection, #14 TAB Continued Medications: Acyclovir (Acyclovir) 400 Mg Tab 400 MG PO TID for Mgmt Viral Infection, #30 TAB 0 Refills (This prescription has been renewed) Ergocalciferol (Vitamin D2) 2,000 Unit Tab 55690 UNITS PO WEEKLY for Nutritional Supplement, TAB 0 Refills Fluconazole (Fluconazole) 150 Mg Tab 150 MG PO ONCE for Infection for 10 Days, TAB 0 Refills Glipizide (Glipizide) 10 Mg Tab 10 MG PO DAILY for Blood Sugar Management, #30 TAB 0 Refills (This prescription has been renewed) Take 30 minutes before a meal Lisinopril (Lisinopril) 40 Mg Tab 40 MG PO BID for Blood Pressure Management, #30 TAB 0 Refills (This prescription has been renewed) Lovastatin (Lovastatin) 40 Mg Tab 40 MG PO DAILY for Cholesterol Management, #30 TAB 0 Refills (This prescription has been renewed) Metformin (Metformin) 500 Mg Tab 1500 MG PO DAILY IN THE AM for Blood Sugar Management, #30 TAB 0 Refills (This prescription has been renewed) Metoprolol Tartrate (Metoprolol Tartrate) 50 Mg Tab 50 MG PO BID for Blood Pressure Management, #60 TAB 0 Refills (This prescription has been renewed) Nifedipine ER 24 HR (Nifedipine ER 24 HR) 30 Mg Tab 30 MG PO DAILY for Blood Pressure Management, #30 TAB 0 Refills (This prescription has been renewed) Omeprazole (Omeprazole) 20 Mg Tab 20 MG PO DAILY for Prevent Stress Ulcers, #30 TAB 0 Refills (This prescription has been renewed) Promethazine (Phenergan) 25 Mg Tablet 25 MG PO TID for Nausea, TAB 0 Refills Discontinued Medications: Metformin (Metformin) 1,000 Mg Tab 1000 MG PO DAILY IN THE PM for Blood Sugar Management, #30 TAB 0 Refills With a meal Ondansetron (Zofran) 4 Mg Tab 8 MG PO DAILY for Nausea, TAB 0 Refills Aguila Sanchez MD Nov 16, 2017 15:11
== END 2017-11-16 17:10 | disposition home health service (06) | DRG 698 ==
LOC: NEPD 13:12 → NEDA 16:10 → OBSVTOIN 16:15 → NEDH 21:31 → N07B 11-11 13:22
PROVIDERS: ADMIT Hospitalist; ATTEND Hospitalist
DX: T83.091A Other mechanical complication of indwelling urethral catheter, initial encounter (principal); A41.9 Sepsis, unspecified organism; R65.20 Severe sepsis without septic shock; B37.89 Other sites of candidiasis; N17.9 Acute kidney failure, unspecified; N18.3 Chronic kidney disease, stage 3 (moderate); N10 Acute pyelonephritis; N13.30 Unspecified hydronephrosis; E86.0 Dehydration; I16.0 Hypertensive urgency; I12.9 Hypertensive chronic kidney disease with stage 1 through stage 4 chronic kidney disease, or unspecified chronic kidney disease; B37.9 Candidiasis, unspecified; E78.5 Hyperlipidemia, unspecified; K21.9 Gastro-esophageal reflux disease without esophagitis; E11.22 Type 2 diabetes mellitus with diabetic chronic kidney disease; Z79.84 Long term (current) use of oral hypoglycemic drugs; R33.8 Other retention of urine; Z79.899 Other long term (current) drug therapy; R21 Rash and other nonspecific skin eruption; Z90.710 Acquired absence of both cervix and uterus; Z79.4 Long term (current) use of insulin; B34.9 Viral infection, unspecified; H35.52 Pigmentary retinal dystrophy; H54.7 Unspecified visual loss; N31.9 Neuromuscular dysfunction of bladder, unspecified; Y84.6 Urinary catheterization as the cause of abnormal reaction of the patient, or of later complication, without mention of misadventure at the time of the procedure
CPT/HCPCS: 36600; 71045; 74176; 80053; 81001; 82805; 82948; 83605; 83690; 85007; 85025; 85027; 85610; 85730; 87040; 87077; 87086; 87106; 87186; 96361; 96374; 96375; J0696; J1450; J1815; J2060; J2405; J2543; J7030; J7040

== ENCOUNTER 2018-06-15 17:56 | Inpatient (IN) ==
[2018-06-15] MEDS ORDERED: Sod Chloride 0.9% Inj 1,000 ML IV.SIG ONE ×2 (19:05→22:28)
[2018-06-15] MEDS ORDERED: Morphine Inj 4 MG/ML Vial IV.PUSH ONE (19:07)
[2018-06-15 19:28] LABS: Baso # (Auto) 0.1 th/mm3 (0.0-0.2); Baso % (Auto) 0.5 % (0.0-2.0); Hematocrit 30.3 % (35.0-46.0); Hemoglobin 9.9 gm/dL (11.6-15.3); Lymph # (Auto) 0.7 th/mm3 (1.0-4.8); Lymph % (Auto) 2.5 % (9.0-44.0); Mean Corpuscular HGB Conc 32.8 % (32.0-36.0); Mean Corpuscular Hemoglobin 27.8 pg (27.0-34.0); Mean Corpuscular Volume 84.7 fL (80.0-100.0); Mean Platelet Volume 9.2 fL (7.0-11.0); Mono # (Auto) 1.4 th/mm3 (0.0-0.9); Mono % (Auto) 5.3 % (0.0-8.0); Neut # (Auto) 24.4 th/mm3 (1.8-7.7); Neut % (Auto) 91.7 % (16.0-70.0); Platelet Count 230 th/mm3 (150-450); Red Blood Count 3.58 mil/mm3 (4.00-5.30); Red Cell Distribution Width 14.7 % (11.6-17.2); White Blood Count 26.6 th/mm3 (4.0-11.0)
--- NOTE | 2018-06-15 19:38 | ED ---
HPI General Chief Complaint: Back Pain/Injury Stated Complaint: fall/evac Time Seen by Provider: 06/15/18 18:45 Source: patient Mode of arrival: EMS Limitations: no limitations History of Present Illness HPI Narrative: 53 Yo F with PMH of HTN, DM, indwelling Ivey catheter presents to the ED for evaluation of back pain after mechanical fall. The patient states that she uses a wheelchair but is able to transfer independently. She states that sometime in the middle the night she was transferring from her recliner to her wheelchair and fell onto her buttocks. She denies hitting her head or loss of consciousness. She states that she was unable to get up for several hours until a helper maintenance cleaning was able to hear her cries and called EMS. On presentation she complains of 7/10 low back pain. She denies headache, dizziness, chest pain, fever, chills, shortness of breath, abdominal pain, nausea, vomiting. She states that her ivey catheter was changed "about 3 weeks ago." Related Data Home Medications Medication Instructions Recorded Confirmed omeprazole 10 mg PO DAILY 06/15/18 06/15/18 acyclovir 200 mg PO Q4H 06/17/18 lovastatin 20 mg PO BID 06/17/18 pantoprazole 40 mg PO DAILY 06/17/18 sitagliptin 25 mg PO DAILY 06/17/18 Allergies Allergy/AdvReac Type Severity Reaction Status Date / Time ibuprofen Allergy Intermediate Nausea/Vomi Unverified 10/27/17 17:39 ting iodine Allergy Intermediate Hives Unverified 03/10/17 15:04 monosodium glutamate Allergy Intermediate Rash Unverified 03/10/17 15:04 oxycodone Allergy Intermediate Nausea/Vomi Unverified 03/10/17 15:04 ting potassium iodide Allergy Intermediate Hives Unverified 03/10/17 15:04 povidone-iodine Allergy Intermediate Hives Unverified 03/10/17 15:04 shellfish derived Allergy Intermediate Hives Unverified 03/10/17 15:04 sodium iodide Allergy Intermediate Hives Unverified 03/10/17 15:04 sodium iodide Allergy Intermediate Hives Unverified 03/10/17 15:04 Review of Systems ROS: all other systems reviewed are negative [facility] Medical History Medical History H/O: hysterectomy (Acute) Type 2 diabetes mellitus (Acute) Vision impairment (Acute) Surgical History Surgical History H/O hernia repair (Acute) Hx of breast reduction, elective (Acute) Family History Family History Other Diabetes mellitus Social History Social History Substance History: No History of Abuse Second Hand Smoke Exposure: No Smoking Status: Never smoker How Often Do You Have a Drink Containing Alcohol: Never Recent Travel in [facility] within the Last 8 Weeks: No Recent Out of Country Travel within the Last 8 Weeks: No Immunization History Tetanus Immunization: <5 Years Exam Narrative Exam Narrative: GENERAL: Obese white female in no acute distress. SKIN: Focused skin assessment warm/dry. Erythematous rash in bilateral groins and skin folds of the belly consistent with candidiasis. HEAD: Atraumatic. Normocephalic. EYES: Pupils equal and round. No scleral icterus. No injection or drainage. ENT: No nasal bleeding or discharge. Mucous membranes pink and moist. NECK: Trachea midline. No JVD. No midline tenderness to palpation. No limitations to range of motion. CARDIOVASCULAR: Regular rate and rhythm. No murmur appreciated. RESPIRATORY: No accessory muscle use. Clear to auscultation. Breath sounds equal bilaterally. GASTROINTESTINAL: Abdomen soft, non-tender, nondistended. Hepatic and splenic margins not palpable. : Ivey catheter in place. Small amount of cloudy white urine in the bag. MUSCULOSKELETAL: No obvious deformities. No clubbing. No cyanosis. No edema. BACK: Tender to palpation in the midline in the thoracic and lumbar areas. NEUROLOGICAL: Awake and alert. No obvious cranial nerve deficits. Motor grossly within normal limits. Normal speech. PSYCHIATRIC: Appropriate mood and affect; insight and judgment normal. Course Initial Documented Vital Signs Temperature 98.6 F 06/15/18 18:32 Pulse Rate 99 H 06/15/18 18:32 Respiratory Rate 17 06/15/18 18:32 Blood Pressure 178/86 H 06/15/18 18:32 Pulse Oximetry 98 06/15/18 18:32 Last Documented Vital Signs Temperature 97.7 F 06/17/18 08:00 Pulse Rate 78 06/17/18 08:00 Respiratory Rate 16 06/17/18 08:00 Blood Pressure 190/92 H 11/22/18 08:00 Pulse Oximetry 98 06/17/18 08:00 Medical Decision Making PRIMITIVO Attestation PRIMITIVO supervised visit: Yes Attestation: I, Dr. Norman, have reviewed the advance practice practitioner's documentation and am in agreement, met with the patient face to face, made the diagnosis, and the medical decision making was done by me. *My assessment and Findings: Back injury, UTI, hyperglycemia, Ivey cath dependent. MDM Narrative Medical decision making narrative: 53-year-old female with PMH of DM, HTN, wheelchair-bound, indwelling Ivey catheter presents the ED after a fall while transferring from her recliner to her wheelchair. Complains of low back pain on presentation. Vitals reviewed. Physical exam reveals an obese white female in no acute distress. There is some midline tenderness of the back. Ivey catheter in place with a small amount of opaque pale yellow fluid. Patient has intertrigo. Blood glucose over 400. IV was established. Patient was administered a liter normal saline, [address] of the lumbar and thoracic spines without acute findings. The nurse found the Ivey to be clogged and a liter of opaque white urine was collected with Ivey catheter change. UA with evidence of UTI. Leukocytosis of 26.6, neutrophil predominant. BUN 36. Creatinine 2.17. Blood glucose 479, Co2 20.2, K 4.2. The patient was administered 9 units insulin IV. She was administered 2g Cefepime. On recheck BGL 515. She was administered 5 units insulin IV. CK pending. Patient is agreeable to admission. I spoke with Dr. Bird who agrees to accept the patient to the medicine service. Please see medicine notes for disposition. Medical Screen Exam Complete: Yes Emergency Medical Condition: Yes Differential Diagnosis Differential Diagnosis: fall versus back pain versus compression fracture versus subluxation versus rhabdomyolisis versus UTI versus metabolic derangement versus other Lab Data Result diagrams: 06/16/18 04:15 06/16/18 04:15 Lab Results 06/15/18 06/15/18 06/15/18 Range/Units 19:17 19:17 19:17 WBC 26.6 H (4.0-11.0) th/mm3 RBC 3.58 L (4.00-5.30) mil/mm3 Hgb 9.9 L (11.6-15.3) gm/dL Hct 30.3 L (35.0-46.0) % MCV 84.7 (80.0-100.0) fL MCH 27.8 (27.0-34.0) pg MCHC 32.8 (32.0-36.0) % RDW 14.7 (11.6-17.2) % Plt Count 230 (150-450) th/mm3 MPV 9.2 (7.0-11.0) fL Neut % (Auto) 91.7 H (16.0-70.0) % Lymph % (Auto) 2.5 L (9.0-44.0) % Dickey % (Auto) 5.3 (0.0-8.0) % Eos % (Auto) 0.0 (0.0-4.0) % Baso % (Auto) 0.5 (0.0-2.0) % Neut # (Auto) 24.4 H (1.8-7.7) th/mm3 Lymph # (Auto) 0.7 L (1.0-4.8) th/mm3 D[place]key # (Auto) 1.4 H (0.0-0.9) th/mm3 Eos # (Auto) 0.0 (0.0-0.4) th/mm3 Baso # (Auto) 0.1 (0.0-0.2) th/mm3 WBC Differential . Differential Comment Auto diff final Sodium 136 (136-145) meq/L Potassium 4.2 (3.5-5.1) meq/L Chloride 106 (98-107) meq/L Carbon Dioxide 20.2 L (21.0-32.0) meq/L Anion Gap 10 (5-15) meq/L BUN 36 H (7-18) mg/dL Creatinine 2.17 H (0.50-1.00) mg/dL Estimated GFR 24 L (>89) mL/min POC Glucose (68-110) mg/dl Random Glucose 479 H* (74-106) mg/dL Hemoglobin A1c (4.3-6.0) % Lactic Acid (0.4-2.0) mmol/L Calcium 8.5 (8.5-10.1) mg/dL Magnesium 1.4 L (1.5-2.5) mg/dL Total Bilirubin 0.4 (0.2-1.0) mg/dL AST 62 H (15-37) U/L ALT 46 (10-53) U/L Alkaline Phosphatase 150 H (45-117) U/L Total Creatine Kinase 2895 H (26-192) U/L CK-MB (CK-2) 5.7 H (0.5-3.6) ng/mL CK-MB (CK-2) % 0.2 (0.0-4.0) % Total Protein 6.8 (6.4-8.2) g/dL Albumin 2.9 L (3.4-5.0) g/dL Urine Color (Yellw/Straw) Urine Clarity (Clear) Urine pH (5.0-8.5) Ur Specific [place] (1.002-1.035) Urine Protein (Neg-Trace) mg/dL Urine Glucose (UA) (Negative) mg/dL Urine Ketones (Negative) mg/dL Urine Occult Blood (Negative) Urine Nitrate (Negative) Urine Bilirubin (Negative) Urine Urobilinogen (Less than 2) mg/dL Ur Leukocyte Esterase (Negative) Urine RBC (0-3) /hpf Urine WBC (0-5) /hpf Urine Bacteria (None) /hpf Micro UA Comment Ur Microscopic Review Urine Culture Comments 06/15/18 06/15/18 06/16/18 Range/Units 22:30 22:35 01:10 WBC (4.0-11.0) th/mm3 RBC (4.00-5.30) mil/mm3 Hgb (11.6-15.3) gm/dL Hct (35.0-46.0) % MCV (80.0-100.0) fL MCH (27.0-34.0) pg MCHC (32.0-36.0) % RDW (11.6-17.2) % Plt Count (150-450) th/mm3 MPV (7.0-11.0) fL Neut % (Auto) (16.0-70.0) % Lymph % (Auto) (9.0-44.0) % Dickey % (Auto) (0.0-8.0) % Eos % (Auto) (0.0-4.0) % Baso % (Auto) (0.0-2.0) % Neut # (Auto) (1.8-7.7) th/mm3 Lymph # (Auto) (1.0-4.8) th/mm3 [place]key # (Auto) (0.0-0.9) th/mm3 Eos # (Auto) (0.0-0.4) th/mm3 Baso # (Auto) (0.0-0.2) th/mm3 WBC Differential Differential Comment Sodium (136-145) meq/L Potassium (3.5-5.1) meq/L Chloride (98-107) meq/L Carbon Dioxide (21.0-32.0) meq/L Anion Gap (5-15) meq/L BUN (7-18) mg/dL Creatinine (0.50-1.00) mg/dL Estimated GFR (>89) mL/min POC Glucose 515 H* 479 H* (68-110) mg/dl Random Glucose (74-106) mg/dL Hemoglobin A1c (4.3-6.0) % Lactic Acid (0.4-2.0) mmol/L Calcium (8.5-10.1) mg/dL Magnesium (1.5-2.5) mg/dL Total Bilirubin (0.2-1.0) mg/dL AST (15-37) U/L ALT (10-53) U/L Alkaline Phosphatase (45-117) U/L Total Creatine Kinase (26-192) U/L CK-MB (CK-2) (0.5-3.6) ng/mL CK-MB (CK-2) % (0.0-4.0) % Total Protein (6.4-8.2) g/dL Albumin (3.4-5.0) g/dL Urine Color Yellow (Yellw/Straw) Urine Clarity Cloudy H (Clear) Urine pH 5.0 (5.0-8.5) Ur Specific [place] 1.014 (1.002-1.035) Urine Protein 30 H (Neg-Trace) mg/dL Urine Glucose (UA) 150 H (Negative) mg/dL Urine Ketones Negative (Negative) mg/dL Urine Occult Blood Moderate H (Negative) Urine Nitrate Negative (Negative) Urine Bilirubin Negative (Negative) Urine Urobilinogen Less than 2 (Less than 2) mg/dL Ur Leukocyte Esterase Large H (Negative) Urine RBC 1 (0-3) /hpf Urine WBC 37 H (0-5) /hpf Urine Bacteria Many H (None) /hpf Micro UA Comment Cath-culture ind Ur Microscopic Review Not Reportable Urine Culture Comments Cath-cult indicated 06/16/18 06/16/18 06/16/18 Range/Units 03:15 03:15 04:03 WBC (4.0-11.0) th/mm3 RBC (4.00-5.30) mil/mm3 Hgb (11.6-15.3) gm/dL Hct (35.0-46.0) % MCV (80.0-100.0) fL MCH (27.0-34.0) pg MCHC (32.0-36.0) % RDW (11.6-17.2) % Plt Count (150-450) th/mm3 MPV (7.0-11.0) fL Neut % (Auto) (16.0-70.0) % Lymph % (Auto) (9.0-44.0) % D[place]key % (Auto) (0.0-8.0) % Eos % (Auto) (0.0-4.0) % Baso % (Auto) (0.0-2.0) % Neut # (Auto) (1.8-7.7) th/mm3 Lymph # (Auto) (1.0-4.8) th/mm3 [place] # (Auto) (0.0-0.9) th/mm3 Eos # (Auto) (0.0-0.4) th/mm3 Baso # (Auto) (0.0-0.2) th/mm3 WBC Differential Differential Comment Sodium (136-145) meq/L Potassium (3.5-5.1) meq/L Chloride (98-107) meq/L Carbon Dioxide (21.0-32.0) meq/L Anion Gap (5-15) meq/L BUN (7-18) mg/dL Creatinine (0.50-1.00) mg/dL Estimated GFR (>89) mL/min POC Glucose 484 H* (68-110) mg/dl Random Glucose (74-106) mg/dL Hemoglobin A1c 9.6 H (4.3-6.0) % Lactic Acid 0.9 (0.4-2.0) mmol/L Calcium (8.5-10.1) mg/dL Magnesium (1.5-2.5) mg/dL Total Bilirubin (0.2-1.0) mg/dL AST (15-37) U/L ALT (10-53) U/L Alkaline Phosphatase (45-117) U/L Total Creatine Kinase (26-192) U/L CK-MB (CK-2) (0.5-3.6) ng/mL CK-MB (CK-2) % (0.0-4.0) % Total Protein (6.4-8.2) g/dL Albumin (3.4-5.0) g/dL Urine Color (Yellw/Straw) Urine Clarity (Clear) Urine pH (5.0-8.5) Ur Specific [place] (1.002-1.035) Urine Protein (Neg-Trace) mg/dL Urine Glucose (UA) (Negative) mg/dL Urine Ketones (Negative) mg/dL Urine Occult Blood (Negative) Urine Nitrate (Negative) Urine Bilirubin (Negative) Urine Urobilinogen (Less than 2) mg/dL Ur Leukocyte Esterase (Negative) Urine RBC (0-3) /hpf Urine WBC (0-5) /hpf Urine Bacteria (None) /hpf Micro UA Comment Ur Microscopic Review Urine Culture Comments 06/16/18 06/16/18 06/16/18 Range/Units 04:15 04:15 05:23 WBC 22.7 H (4.0-11.0) th/mm3 RBC 4.01 (4.00-5.30) mil/mm3 Hgb 11.1 L (11.6-15.3) gm/dL Hct 33.9 L (35.0-46.0) % MCV 84.5 (80.0-100.0) fL MCH 27.6 (27.0-34.0) pg MCHC 32.6 (32.0-36.0) % RDW 14.9 (11.6-17.2) % Plt Count 343 D (150-450) th/mm3 MPV 8.2 (7.0-11.0) fL Neut % (Auto) 89.0 H (16.0-70.0) % Lymph % (Auto) 5.3 L (9.0-44.0) % [place]key % (Auto) 5.4 (0.0-8.0) % Eos % (Auto) 0.1 (0.0-4.0) % Baso % (Auto) 0.2 (0.0-2.0) % Neut # (Auto) 20.2 H (1.8-7.7) th/mm3 Lymph # (Auto) 1.2 (1.0-4.8) th/mm3 [place] # (Auto) 1.2 H (0.0-0.9) th/mm3 Eos # (Auto) 0.0 (0.0-0.4) th/mm3 Baso # (Auto) 0.0 (0.0-0.2) th/mm3 WBC Differential . Differential Comment Auto diff final Sodium 136 (136-145) meq/L Potassium 4.5 (3.5-5.1) meq/L Chloride 105 (98-107) meq/L Carbon Dioxide 18.5 L (21.0-32.0) meq/L Anion Gap 13 (5-15) meq/L BUN 35 H (7-18) mg/dL Creatinine 2.19 H (0.50-1.00) mg/dL Estimated GFR 23 L (>89) mL/min POC Glucose 453 H* (68-110) mg/dl Random Glucose 443 H (74-106) mg/dL Hemoglobin A1c (4.3-6.0) % Lactic Acid (0.4-2.0) mmol/L Calcium 8.5 (8.5-10.1) mg/dL Magnesium (1.5-2.5) mg/dL Total Bilirubin 0.3 (0.2-1.0) mg/dL AST 61 H (15-37) U/L ALT 48 (10-53) U/L Alkaline Phosphatase 141 H (45-117) U/L Total Creatine Kinase 4009 H (26-192) U/L CK-MB (CK-2) 7.5 H (0.5-3.6) ng/mL CK-MB (CK-2) % 0.2 (0.0-4.0) % Total Protein 6.7 (6.4-8.2) g/dL Albumin 2.6 L (3.4-5.0) g/dL Urine Color (Yellw/Straw) Urine Clarity (Clear) Urine pH (5.0-8.5) Ur Specific [place] (1.002-1.035) Urine Protein (Neg-Trace) mg/dL Urine Glucose (UA) (Negative) mg/dL Urine Ketones (Negative) mg/dL Urine Occult Blood (Negative) Urine Nitrate (Negative) Urine Bilirubin (Negative) Urine Urobilinogen (Less than 2) mg/dL Ur Leukocyte Esterase (Negative) Urine RBC (0-3) /hpf Urine WBC (0-5) /hpf Urine Bacteria (None) /hpf Micro UA Comment Ur Microscopic Review Urine Culture Comments 06/16/18 06/16/18 06/16/18 Range/Units 08:32 11:38 16:23 WBC (4.0-11.0) th/mm3 RBC (4.00-5.30) mil/mm3 Hgb (11.6-15.3) gm/dL Hct (35.0-46.0) % MCV (80.0-100.0) fL MCH (27.0-34.0) pg MCHC (32.0-36.0) % RDW (11.6-17.2) % Plt Count (150-450) th/mm3 MPV (7.0-11.0) fL Neut % (Auto) (16.0-70.0) % Lymph % (Auto) (9.0-44.0) % [place] % (Auto) (0.0-8.0) % Eos % (Auto) (0.0-4.0) % Baso % (Auto) (0.0-2.0) % Neut # (Auto) (1.8-7.7) th/mm3 Lymph # (Auto) (1.0-4.8) th/mm3 [place] # (Auto) (0.0-0.9) th/mm3 Eos # (Auto) (0.0-0.4) th/mm3 Baso # (Auto) (0.0-0.2) th/mm3 WBC Differential Differential Comment Sodium (136-145) meq/L Potassium (3.5-5.1) meq/L Chloride (98-107) meq/L Carbon Dioxide (21.0-32.0) meq/L Anion Gap (5-15) meq/L BUN (7-18) mg/dL Creatinine (0.50-1.00) mg/dL Estimated GFR (>89) mL/min POC Glucose 383 H 280 H 314 H (68-110) mg/dl Random Glucose (74-106) mg/dL Hemoglobin A1c (4.3-6.0) % Lactic Acid (0.4-2.0) mmol/L Calcium (8.5-10.1) mg/dL Magnesium (1.5-2.5) mg/dL Total Bilirubin (0.2-1.0) mg/dL AST (15-37) U/L ALT (10-53) U/L Alkaline Phosphatase (45-117) U/L Total Creatine Kinase (26-192) U/L CK-MB (CK-2) (0.5-3.6) ng/mL CK-MB (CK-2) % (0.0-4.0) % Total Protein (6.4-8.2) g/dL Albumin (3.4-5.0) g/dL Urine Color (Yellw/Straw) Urine Clarity (Clear) Urine pH (5.0-8.5) Ur Specific [place] (1.002-1.035) Urine Protein (Neg-Trace) mg/dL Urine Glucose (UA) (Negative) mg/dL Urine Ketones (Negative) mg/dL Urine Occult Blood (Negative) Urine Nitrate (Negative) Urine Bilirubin (Negative) Urine Urobilinogen (Less than 2) mg/dL Ur Leukocyte Esterase (Negative) Urine RBC (0-3) /hpf Urine WBC (0-5) /hpf Urine Bacteria (None) /hpf Micro UA Comment Ur Microscopic Review Urine Culture Comments 06/16/18 06/16/18 06/17/18 Range/Units 22:07 23:10 03:54 WBC (4.0-11.0) th/mm3 RBC (4.00-5.30) mil/mm3 Hgb (11.6-15.3) gm/dL Hct (35.0-46.0) % MCV (80.0-100.0) fL MCH (27.0-34.0) pg MCHC (32.0-36.0) % RDW (11.6-17.2) % Plt Count (150-450) th/mm3 MPV (7.0-11.0) fL Neut % (Auto) (16.0-70.0) % Lymph % (Auto) (9.0-44.0) % [place] % (Auto) (0.0-8.0) % Eos % (Auto) (0.0-4.0) % Baso % (Auto) (0.0-2.0) % Neut # (Auto) (1.8-7.7) th/mm3 Lymph # (Auto) (1.0-4.8) th/mm3 [place] # (Auto) (0.0-0.9) th/mm3 Eos # (Auto) (0.0-0.4) th/mm3 Baso # (Auto) (0.0-0.2) th/mm3 WBC Differential Differential Comment Sodium (136-145) meq/L Potassium (3.5-5.1) meq/L Chloride (98-107) meq/L Carbon Dioxide (21.0-32.0) meq/L Anion Gap (5-15) meq/L BUN (7-18) mg/dL Creatinine (0.50-1.00) mg/dL Estimated GFR (>89) mL/min POC Glucose 277 H 277 H (68-110) mg/dl Random Glucose (74-106) mg/dL Hemoglobin A1c (4.3-6.0) % Lactic Acid 0.8 (0.4-2.0) mmol/L Calcium (8.5-10.1) mg/dL Magnesium (1.5-2.5) mg/dL Total Bilirubin (0.2-1.0) mg/dL AST (15-37) U/L ALT (10-53) U/L Alkaline Phosphatase (45-117) U/L Total Creatine Kinase (26-192) U/L CK-MB (CK-2) (0.5-3.6) ng/mL CK-MB (CK-2) % (0.0-4.0) % Total Protein (6.4-8.2) g/dL Albumin (3.4-5.0) g/dL Urine Color (Yellw/Straw) Urine Clarity (Clear) Urine pH (5.0-8.5) Ur Specific [place] (1.002-1.035) Urine Protein (Neg-Trace) mg/dL Urine Glucose (UA) (Negative) mg/dL Urine Ketones (Negative) mg/dL Urine Occult Blood (Negative) Urine Nitrate (Negative) Urine Bilirubin (Negative) Urine Urobilinogen (Less than 2) mg/dL Ur Leukocyte Esterase (Negative) Urine RBC (0-3) /hpf Urine WBC (0-5) /hpf Urine Bacteria (None) /hpf Micro UA Comment Ur Microscopic Review Urine Culture Comments 06/17/18 Range/Units 08:01 WBC (4.0-11.0) th/mm3 RBC (4.00-5.30) mil/mm3 Hgb (11.6-15.3) gm/dL Hct (35.0-46.0) % MCV (80.0-100.0) fL MCH (27.0-34.0) pg MCHC (32.0-36.0) % RDW (11.6-17.2) % Plt Count (150-450) th/mm3 MPV (7.0-11.0) fL Neut % (Auto) (16.0-70.0) % Lymph % (Auto) (9.0-44.0) % [place] % (Auto) (0.0-8.0) % Eos % (Auto) (0.0-4.0) % Baso % (Auto) (0.0-2.0) % Neut # (Auto) (1.8-7.7) th/mm3 Lymph # (Auto) (1.0-4.8) th/mm3 [place] # (Auto) (0.0-0.9) th/mm3 Eos # (Auto) (0.0-0.4) th/mm3 Baso # (Auto) (0.0-0.2) th/mm3 WBC Differential Differential Comment Sodium (136-145) meq/L Potassium (3.5-5.1) meq/L Chloride (98-107) meq/L Carbon Dioxide (21.0-32.0) meq/L Anion Gap (5-15) meq/L BUN (7-18) mg/dL Creatinine (0.50-1.00) mg/dL Estimated GFR (>89) mL/min POC Glucose 243 H (68-110) mg/dl Random Glucose (74-106) mg/dL Hemoglobin A1c (4.3-6.0) % Lactic Acid (0.4-2.0) mmol/L Calcium (8.5-10.1) mg/dL Magnesium (1.5-2.5) mg/dL Total Bilirubin (0.2-1.0) mg/dL AST (15-37) U/L ALT (10-53) U/L Alkaline Phosphatase (45-117) U/L Total Creatine Kinase (26-192) U/L CK-MB (CK-2) (0.5-3.6) ng/mL CK-MB (CK-2) % (0.0-4.0) % Total Protein (6.4-8.2) g/dL Albumin (3.4-5.0) g/dL Urine Color (Yellw/Straw) Urine Clarity (Clear) Urine pH (5.0-8.5) Ur Specific [place] (1.002-1.035) Urine Protein (Neg-Trace) mg/dL Urine Glucose (UA) (Negative) mg/dL Urine Ketones (Negative) mg/dL Urine Occult Blood (Negative) Urine Nitrate (Negative) Urine Bilirubin (Negative) Urine Urobilinogen (Less than 2) mg/dL Ur Leukocyte Esterase (Negative) Urine RBC (0-3) /hpf Urine WBC (0-5) /hpf Urine Bacteria (None) /hpf Micro UA Comment Ur Microscopic Review Urine Culture Comments Imaging Data Radiologist's impression: Lumbar Spine CT 06/15/18 19:05 CONCLUSION: 1. Scattered degenerative change as described above. 2. Acute bony abnormality is not seen. Thoracic Spine CT 06/15/18 19:05 CONCLUSION: 1. No acute bony abnormalities seen. 2. Nonspecific focal areas of sclerosis at the C7 and T12 vertebral bodies. These could represent bone islands. Other causes for 2 sclerotic areas cannot be excluded. Humerus X-Ray 06/16/18 00:05 CONCLUSION: No evidence of fracture. Shoulder X-Ray 06/16/18 00:05 CONCLUSION: 1. No evidence of fracture. 2. Mild acromioclavicular joint arthrosis. ECG Data Attestation: I personally reviewed and interpreted this ECG as follows: Interpretation: EKG rate 91. Sinus rhythm. ND interval 166, QRS 82, QTc [address] changes. Discharge Plan Discharge Disposition Patient Disposition: 30 Still Patient Physicians Team ED Provider: Alfa Norman ED Midlevel Provider: Bev Johnson Primary Care Provider: Jaimie Pete Attending Provider: Sneha Teresa Status ED Status: Left Department Discharge Information Discharge Date/Time: 06/16/18 13:31
[2018-06-15 19:43] LABS: Albumin 2.9 g/dL (3.4-5.0); Anion Gap 10 meq/L (5-15); Aspartate Aminotransferase 62 U/L (15-37); Blood Urea Nitrogen 36 mg/dL (7-18); Calcium 8.5 mg/dL (8.5-10.1); Carbon Dioxide 20.2 meq/L (21.0-32.0); Chloride 106 meq/L (98-107); Glomerular Filtration Rate 24 mL/min (>89); Magnesium 1.4 mg/dL (1.5-2.5); Potassium 4.2 meq/L (3.5-5.1); Sodium 136 meq/L (136-145)
[2018-06-15 19:46] LABS: Alanine Aminotransferase 46 U/L (10-53); Alkaline Phosphatase 150 U/L (45-117); Total Protein 6.8 g/dL (6.4-8.2)
[2018-06-15 19:52] LABS: Glucose,Random 479 mg/dL (74-106)
--- NOTE | 2018-06-15 20:37 | CT ---
EXAM DATE: 06/15/2018 8:30 PM EST AGE/SEX: 53 years / Female INDICATIONS: Fall today. Upper back pain. CLINICAL DATA: This is the patient's initial encounter. Patient reports that signs and symptoms have been present for 1 day and indicates a pain score of 8/10. MEDICAL/SURGICAL HISTORY: Diabetes. Hysterectomy. Hernia repair. RADIATION DOSE: 31.32 CTDI (mGy) ; Combined studies ; Patient body habitus COMPARISON: No prior exams available for comparison. TECHNIQUE: Contiguous axial images were acquired using a multirow detector CT scanner without contra st. Multiplanar reconstruction in the sagittal and coronal planes was performed. Using automated exp osure control and adjustment of the mA and/or kV according to patient size, radiation dose was kept a s low as reasonably achievable to obtain optimal diagnostic quality images. DICOM format image data is available electronically for review and comparison. FINDINGS: Vertebrae: Normal vertebral body height. There is a focal area of sclerosis at the anterior inferior left T12 vertebral body. There is also a focal area of sclerosis at the right lateral posterior aspe ct of the C7 vertebral body. These are nonspecific. There are fairly old healed deformities at the po sterior medial right 11th and 12th ribs. Alignment: Normal. No subluxation. T1 - T2: Normal. T2 - T3: The thecal sac has a normal diameter. No evidence of disc bulge or protrusion. T3 - T4: The thecal sac has a normal diameter. No evidence of disc bulge or protrusion. T4 - T5: The thecal sac has a normal diameter. No evidence of disc bulge or protrusion. T5 - T6: The thecal sac has a normal diameter. No evidence of disc bulge or protrusion. T6 - T7: The thecal sac has a normal diameter. No evidence of disc bulge or protrusion. T7 - T8: The thecal sac has a normal diameter. No evidence of disc bulge or protrusion. T8 - T9: The thecal sac has a normal diameter. No evidence of disc bulge or protrusion. T9 - T10: The thecal sac has a normal diameter. No evidence of disc bulge or protrusion. T10 - T11: The thecal sac has a normal diameter. No evidence of disc bulge or protrusion. T11 - T12: The thecal sac has a normal diameter. No evidence of disc bulge or protrusion. T12 - L1: The thecal sac has a normal diameter. No evidence of disc bulge or protrusion. CONCLUSION: 1. No acute bony abnormalities seen. 2. Nonspecific focal areas of sclerosis at the C7 and T12 vertebral bodies. These could represent [place]. Other causes for 2 sclerotic areas cannot be excluded. Electronically signed by: Enio Tomas MD 06/15/2018 8:36 PM EST
--- NOTE | 2018-06-15 20:45 | CT ---
EXAM DATE: 06/15/2018 8:28 PM EST AGE/SEX: 53 years / Female INDICATIONS: Fall today, lower back pain CLINICAL DATA: This is the patient's initial encounter. Patient reports that signs and symptoms have been present for 1 day and indicates a pain score of 8/10. MEDICAL/SURGICAL HISTORY: Diabetes. Hysterectomy. Hernia repair RADIATION DOSE: 31.32 CTDI (mGy) ; Combined studies COMPARISON: No prior exams available for comparison. TECHNIQUE: Contiguous axial images were acquired with a multirow detector CT scanner without contras t. Multiplanar reconstructions in the sagittal and coronal plane were also performed. Using automate d exposure control and adjustment of the mA and/or kV according to patient size, radiation dose was k ept as low as reasonably achievable to obtain optimal diagnostic quality images. DICOM format image data is available electronically for review and comparison. FINDINGS: Vertebrae: Normal vertebral body height. There is a focal area of sclerosis at the anterior inferior left lateral T12 vertebral body. This is nonspecific. Alignment: The lumbar vertebral bodies are normally aligned in the sagittal plane. There is a mild d extrocurvature of the lumbar spine with the apex at the L2 level. T12-L1: The thecal sac has a normal diameter. No evidence of disc bulge or protrusion. The neural foramina are patent bilaterally. L1-L2: The disc demonstrates decreased height. There is mild diffuse disc bulge. Significant stenosi s is not seen. The neural foramina are patent bilaterally. Marginal osteophytes are seen. L2-L3: The disc demonstrates decreased height. There is mild disc bulge. Significant stenosis is not seen. The neural foramina are patent bilaterally. There is mild facet hypertrophy. L3-L4: The thecal sac has a normal diameter. No evidence of disc bulge or protrusion. The neural f oramina are patent bilaterally. There is mild facet hypertrophy. L4-L5: There is mild disc bulge. There is disc loss of height being worse on the right. There is a S chmorl node at the posterior superior right aspect of L5. There is moderate facet hypertrophy being w orse on the right. The neural foramina are grossly patent.. L5-S1: The thecal sac has a normal diameter. No evidence of disc bulge or protrusion. There is a va cuum phenomenon. The neural foramina are patent bilaterally. There is moderate facet hypertrophy. CONCLUSION: 1. Scattered degenerative change as described above. 2. Acute bony abnormality is not seen. Electronically signed by: Enio Tomas MD 06/15/2018 8:43 PM EST
[2018-06-15] MEDS ORDERED: Fluconazole 100 MG Tablet PO ONE (22:28)
[2018-06-15] MEDS ORDERED: Nystatin 100,000 UNITS/GM Powder 15 GM Bottle TOPICAL ONE (22:28)
[2018-06-15 22:55] LABS: Bacteria,Urine Many /hpf; Bilirubin,Urine Negative (Negative); Clarity,Urine Cloudy (Clear); Color,Urine Yellow (Yellw/Straw); Glucose,Urine (UA) 150 mg/dL (Negative); Leukocyte Esterase,Urine Large (Negative); Nitrite,Urine Negative (Negative); Specific Gravity,Urine 1.014 (1.002-1.035)
--- NOTE | 2018-06-16 00:50 | XR ---
EXAM DATE: 06/16/2018 12:37 AM EST AGE/SEX: 53 years / Female INDICATIONS: Pain. Patient state she fell and her wheelchair landed on her today. CLINICAL DATA: This is the patient's initial encounter. Patient reports that signs and symptoms have been present for 1 day and indicates a pain score of 4/10. MEDICAL/SURGICAL HISTORY: . Vision impared. . Hernia surgery, Breast reduction. COMPARISON: No prior exams available for comparison. FINDINGS: 4 views of right shoulder. Bone alignment within normal limits. No evidence of fracture. Mild hypertr ophic change of the acromioclavicular joint. Glenohumeral joint within normal limits. CONCLUSION: 1. No evidence of fracture. 2. Mild acromioclavicular joint arthrosis. Electronically signed by: Lobito Moon MD 06/16/2018 12:48 AM EST
--- NOTE | 2018-06-16 00:53 | XR ---
EXAM DATE: 06/16/2018 12:35 AM EST AGE/SEX: 53 years / Female INDICATIONS: Pain. Patient states she fell and her wheelchair landed on top of her today. CLINICAL DATA: This is the patient's initial encounter. Patient reports that signs and symptoms have been present for 1 day and indicates a pain score of 4/10. MEDICAL/SURGICAL HISTORY: . Vision impared. . Hernia surgery, Breast reduction. COMPARISON: No prior exams available for comparison. FINDINGS: 2 views of the right humerus. Bone alignment within normal limits. No evidence of fracture. CONCLUSION: No evidence of fracture. Electronically signed by: Lobito Moon MD 06/16/2018 12:52 AM EST
[2018-06-16 01:03] LABS: CKMB Percent 0.2 % (0.0-4.0); Creatine Kinase MB 5.7 ng/mL (0.5-3.6)
[2018-06-16] MEDS ORDERED: Dextrose 50% in Water 50 ML Vial IV.PUSH PRN ×2 (02:25→02:29)
[2018-06-16] MEDS ORDERED: Acetaminophen 325 MG Tablet PO PRN (02:25)
[2018-06-16] MEDS ORDERED: Bisacodyl 10 MG Supp RECTAL PRN (02:25)
--- NOTE | 2018-06-16 02:52 | P.HP ---
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 The patient reports she is wheelchair-bound however is able to transfer independently. She was transferring from her chair to the wheelchair when she fell and lodged her arm between the chair and wheelchair. She reports she was on the ground for approximately 4 hours before the assistance arrived. The patient complains of right arm and shoulder pain. She also endorses subjective chills. On her arrival in the emergency department, the patient's Ricardo catheter was exchanged revealing obstruction and urinary retention. The catheter tubing was covered in feces. At the time of our interview, the patient had developed emesis. She was hyperglycemic in the emergency department with a blood glucose of 479. CPK 2985. The patient denies any chest pain or shortness of breath. She denies any headache or head trauma associated with her fall. Positive nausea with emesis. No abdominal pain. Review of Systems All other systems reviewed negative except as stated in HPI PMFSH - History History Provided By: Patient - Medical History Medical History: Medical History (Last Updated 06/16/18 @ 02:41 by Annabel Bird MD) GERD (gastroesophageal reflux disease) H/O: hysterectomy Hyperlipidemia Hypertension Retinitis pigmentosa Type 2 diabetes mellitus Urinary retention Vision impairment - Surgical History Surgical History: Surgical History (Last Reviewed 06/15/18 @ 22:17 by XAVI Barrera) H/O hernia repair Hx of breast reduction, elective - Family History Family History: Family History (Last Updated 06/16/18 @ 02:42 by Annabel Bird MD) Other Diabetes mellitus - Tobacco History Second Hand Smoke Exposure: No Smoking Status: Never smoker - Alcohol History How Often Do You Have a Drink Containing Alcohol: Never - Substance Use History Substance History: No History of Abuse - Travel History Recent Travel in the [facility] Within the Last 8 Weeks: No Recent Travel Out of the Country Within the Last 8 Weeks: No - Immunization History Tetanus Immunization: <5 Years Medications and Allergies Active Medications: Active Medications Acetaminophen (Tylenol) 650 mg PO Q4H PRN PRN Reason: Temp > 100.4 Al Hydroxide/Mg Hydroxide (Milk Of Magnesia Liq) 30 ml PO Q12H PRN PRN Reason: Mild Constipation Bisacodyl (Dulcolax Supp) 10 mg RECTAL DAILY PRN PRN Reason: SEVERE CONSITIPATION Clonidine HCl (Catapres) 0.1 mg PO Q6H PRN PRN Reason: SBP>160, DBP>90 Dextrose (D50w Vial) 50 ml IV.PUSH UNSCH PRN PRN Reason: PER HYPOGLYCEMIA PROTOCOL Dextrose (D50w Vial) 50 ml IV.PUSH UNSCH PRN PRN Reason: PER HYPOGLYCEMIA PROTOCOL Glucagon (Glucagon Inj) 1 mg OTHER PRN PRN PRN Reason: for Hypoglycemia Protocol Glucagon (Glucagon Inj) 1 mg OTHER PRN PRN PRN Reason: for Hypoglycemia Protocol Cefepime HCl 2,000 mg/ Sodium (Chloride) 100 mls @ 200 mls/hr IV.SIG Q8H EVAN Sodium Chloride (Ns Inj) 1,000 mls @ 200 mls/hr IV.CONT .Q5H EVAN Insulin Aspart (Novolog Insulin Correctional Sugar Inj) 0 unit SQ ACHS AND 3AM EVAN; Protocol Lactulose (Lactulose Liq) 30 ml PO DAILY PRN PRN Reason: SEVERE CONSITIPATION Morphine Sulfate (Morphine Inj) 2 mg IV.PUSH Q4H PRN PRN Reason: pain 6-10 Nystatin (Mycostatin Powder) 1 applicatio TOPICAL QID EVAN Ondansetron HCl (Zofran Inj) 4 mg IV.PUSH Q6H PRN PRN Reason: NAUSEA OR VOMITING Senna/Docusate Sodium (Tamara-Colace) 1 tab PO BID [facility] Sennosides (Senokot) 17.2 mg PO Q12H PRN PRN Reason: Moderate Constipation Sodium Chloride (Ns Flush) 2 ml IV.FLUSH PRN PRN PRN Reason: FLUSH AFTER USING IV ACCESS Allergies Allergy/AdvReac Type Severity Reaction Status Date / Time ibuprofen Allergy Intermediate Nausea/Vomi Unverified 10/27/17 17:39 ting iodine Allergy Intermediate Hives Unverified 03/10/17 15:04 monosodium glutamate Allergy Intermediate Rash Unverified 03/10/17 15:04 oxycodone Allergy Intermediate Nausea/Vomi Unverified 03/10/17 15:04 ting potassium iodide Allergy Intermediate Hives Unverified 03/10/17 15:04 povidone-iodine Allergy Intermediate Hives Unverified 03/10/17 15:04 shellfish derived Allergy Intermediate Hives Unverified 03/10/17 15:04 sodium iodide Allergy Intermediate Hives Unverified 03/10/17 15:04 sodium iodide Allergy Intermediate Hives Unverified 03/10/17 15:04 Home Medications Medication Instructions Recorded Confirmed Type omeprazole 10 mg PO DAILY 06/15/18 06/15/18 History Exam Vital signs: Vital Signs 06/15/18 18:32 06/15/18 22:36 Temperature 98.6 F 97.8 F Pulse Rate 99 H 93 H Respiratory Rate 17 16 Blood Pressure 178/86 H 169/78 H Pulse Oximetry 98 99 Intake & Output 06/15/18 06/15/18 06/16/18 06:59 18:59 06:59 Intake Total 2099 Balance 2099 Weight 90.718 kg Intake: IV 2099 Maxipime Inj 2,000 MG In NS Inj 100 / 100 100 ML @ 200 mls/hr IV.SIG ONCE ONE Rx#:[id number] NS Inj 1,000 ML @ Wide Open IV. 1999 / 1999 SIG BOLUS ONE Rx#:[id number] Narrative: Gen.: No acute distress. Patient vomiting violently into emesis basin. Head: Normocephalic. Atraumatic. EENT: Nose without drainage. Airway intact. Throat without injection. Cardiovascular: Regular rate and rhythm. No murmurs, rubs or gallops. Respiratory: Lungs clear to auscultation bilaterally. No wheezes or rhonchi. Abdomen: Soft, nontender, nondistended. No peritoneal signs. Musculoskeletal: No gross deformities. No edema. Right shoulder and arm exquisitely tender to palpation and painful with movement. Skin: Erythema with white patches in pannus skin fold. Ecchymoses on right shoulder and arm. Neuro: Sensory and motor grossly intact. Cranial nerves II through XII grossly intact. Results - Labs CBC & Chem 7: 06/15/18 19:17 06/15/18 19:17 Labs: Laboratory Results - last 24 hr 06/15/18 06/15/18 06/15/18 19:17 19:17 19:17 WBC 26.6 H RBC 3.58 L Hgb 9.9 L Hct 30.3 L MCV 84.7 MCH 27.8 MCHC 32.8 RDW 14.7 Plt Count 230 MPV 9.2 Neut % (Auto) 91.7 H Lymph % (Auto) 2.5 L [place] % (Auto) 5.3 Eos % (Auto) 0.0 Baso % (Auto) 0.5 Neut # (Auto) 24.4 H Lymph # (Auto) 0.7 L [place] # (Auto) 1.4 H Eos # (Auto) 0.0 Baso # (Auto) 0.1 WBC Differential . Differential Comment Auto diff final Sodium 136 Potassium 4.2 Chloride 106 Carbon Dioxide 20.2 L Anion Gap 10 BUN 36 H Creatinine 2.17 H Estimated GFR 24 L POC Glucose Random Glucose 479 H* Calcium 8.5 Magnesium 1.4 L Total Bilirubin 0.4 AST 62 H ALT 46 Alkaline Phosphatase 150 H Total Creatine Kinase 2895 H CK-MB (CK-2) 5.7 H CK-MB (CK-2) % 0.2 Total Protein 6.8 Albumin 2.9 L Urine Color Urine Clarity Urine pH Ur Specific [place] Urine Protein Urine Glucose (UA) Urine Ketones Urine Occult Blood Urine Nitrate Urine Bilirubin Urine Urobilinogen Ur Leukocyte Esterase Urine RBC Urine WBC Urine Bacteria Micro UA Comment Ur Microscopic Review Urine Culture Comments 06/15/18 06/15/18 06/16/18 22:30 22:35 01:10 WBC RBC Hgb Hct MCV MCH MCHC RDW Plt Count MPV Neut % (Auto) Lymph % (Auto) [place] % (Auto) Eos % (Auto) Baso % (Auto) Neut # (Auto) Lymph # (Auto) [place] # (Auto) Eos # (Auto) Baso # (Auto) WBC Differential Differential Comment Sodium Potassium Chloride Carbon Dioxide Anion Gap BUN Creatinine Estimated GFR POC Glucose 515 H* 479 H* Random Glucose Calcium Magnesium Total Bilirubin AST ALT Alkaline Phosphatase Total Creatine Kinase CK-MB (CK-2) CK-MB (CK-2) % Total Protein Albumin Urine Color Yellow Urine Clarity Cloudy H Urine pH 5.0 Ur Specific [place] 1.014 Urine Protein 30 H Urine Glucose (UA) 150 H Urine Ketones Negative Urine Occult Blood Moderate H Urine Nitrate Negative Urine Bilirubin Negative Urine Urobilinogen Less than 2 Ur Leukocyte Esterase Large H Urine RBC 1 Urine WBC 37 H Urine Bacteria Many H Micro UA Comment Cath-culture ind Ur Microscopic Review Not Reportable Urine Culture Comments Cath-cult indicated - Imaging Impressions Lumbar Spine CT 06/15/18 19:05 CONCLUSION: 1. Scattered degenerative change as described above. 2. Acute bony abnormality is not seen. Thoracic Spine CT 06/15/18 19:05 CONCLUSION: 1. No acute bony abnormalities seen. 2. Nonspecific focal areas of sclerosis at the C7 and T12 vertebral bodies. These could represent bone islands. Other causes for 2 sclerotic areas cannot be excluded. Humerus X-Ray 06/16/18 00:05 CONCLUSION: No evidence of fracture. Shoulder X-Ray 06/16/18 00:05 CONCLUSION: 1. No evidence of fracture. 2. Mild acromioclavicular joint arthrosis. Caprini VTE Risk Assessment Caprini VTE Risk Assessment: No/Low Risk (score <= 1) Caprini Risk Assessment Model: Point Value = 1 Point Value = 2 Point Value = 3 Point Value = 5 Age 41-60 Minor surgery BMI > 25 kg/m2 Swollen legs Varicose veins or History of unexplained or recurrent spontaneous Oral contraceptives or hormone replacement Sepsis (< 1 month) Serious lung disease, including pneumonia (< 1 month) Abnormal pulmonary function Acute myocardial infarction Congestive heart failure (< 1 month) History of inflammatory bowel disease Medical patient at bed rest Age 61-74 Arthroscopic surgery Major open surgery (> 45 min) Laparoscopic surgery (> 45 min) Malignancy Confined to bed (> 72 hours) Immobilizing plaster cast Central venous access Age >= 75 History of VTE Family history of VTE Factor V Leiden Prothrombin [id number] Lupus anticoagulant Anticardiolipin antibodies Elevated serum homocysteine Heparin-induced thrombocytopenia Other congenital or acquired thrombophilia Stroke (< 1 month) Elective arthroplasty Hip, pelvis, or leg fracture Acute spinal cord injury (< 1 month) Prophylaxis Regimen: Total Risk Factor Score Risk Level Prophylaxis Regimen 0-1 Low Early ambulation 2 Moderate Order ONE of the following: *Sequential Compression Device (SCD) *Heparin 5000 units SQ BID 3-4 Higher Order ONE of the following medications: *Heparin 5000 units SQ TID *Enoxaparin/Lovenox 40 mg SQ daily (WT < 150 kg, CrCl > 30 mL/min) *Enoxaparin/Lovenox 30 mg SQ daily (WT < 150 kg, CrCl > 10-29 mL/min) *Enoxaparin/Lovenox 30 mg SQ BID (WT < 150 kg, CrCl > 30 mL/min) AND/OR *Sequential Compression Device (SCD) 5 or more Highest Order ONE of the following medications: *Heparin 5000 units SQ TID (Preferred with Epidurals) *Enoxaparin/Lovenox 40 mg SQ daily (WT < 150 kg, CrCl > 30 mL/min) *Enoxaparin/Lovenox 30 mg SQ daily (WT < 150 kg, CrCl > 10-29 mL/min) *Enoxaparin/Lovenox 30 mg SQ BID (WT < 150 kg, CrCl > 30 mL/min) AND *Sequential Compression Device (SCD) Assessment and Plan - Plan Assessment/plan: 1. Rhabdomyolysis/AK I Status post fall with prolonged immobilization CPK 2895, ending 2.17 Aggressive IV fluid hydration Monitor renal function 2. Urinary retention/Ricardo catheter obstruction/urinary tract infection/ leukocytosis/sepsis Patient with indwelling Ricardo catheter was covered in feces and obstructed Replaced in the emergency department UA consistent with urinary tract infection Urine culture pending Cefepime Blood cultures pending Lactic acid pending 3. Hyperglycemia Patient with known history of diabetes type 2, on metformin at home Blood glucose 479 in the ED Sliding-scale insulin A1c pending 4. Hypertension/hyperlipidemia Continue home medications once reconciled Clonidine as needed 5. Impaired mobility Patient reports chronic weakness secondary to lower extremity weakness and back problems Physical therapy consulted FEN Diet Electrolytes: Monitor and replete as needed NS at 200 cc/hour
[2018-06-16] MEDS: Insulin NovoLOG Aspart Correctional Sugar Inj SQ SCH ×5 (04:05→22:15)
[2018-06-16] MEDS: Sod Chloride 0.9% Inj 1,000 ML IV.CONT SCH ×5 (05:06→22:17)
[2018-06-16 05:49] LABS: Baso % (Auto) 0.2 % (0.0-2.0); Eos % (Auto) 0.1 % (0.0-4.0); Hematocrit 33.9 % (35.0-46.0); Hemoglobin 11.1 gm/dL (11.6-15.3); Lymph # (Auto) 1.2 th/mm3 (1.0-4.8); Lymph % (Auto) 5.3 % (9.0-44.0); Mean Corpuscular HGB Conc 32.6 % (32.0-36.0); Mean Corpuscular Hemoglobin 27.6 pg (27.0-34.0); Mean Corpuscular Volume 84.5 fL (80.0-100.0); Mean Platelet Volume 8.2 fL (7.0-11.0); Mono # (Auto) 1.2 th/mm3 (0.0-0.9); Mono % (Auto) 5.4 % (0.0-8.0); Neut # (Auto) 20.2 th/mm3 (1.8-7.7); Platelet Count 343 th/mm3 (150-450); Red Blood Count 4.01 mil/mm3 (4.00-5.30); Red Cell Distribution Width 14.9 % (11.6-17.2); White Blood Count 22.7 th/mm3 (4.0-11.0)
[2018-06-16 06:29] LABS: Alanine Aminotransferase 48 U/L (10-53); Albumin 2.6 g/dL (3.4-5.0); Alkaline Phosphatase 141 U/L (45-117); Anion Gap 13 meq/L (5-15); Aspartate Aminotransferase 61 U/L (15-37); Blood Urea Nitrogen 35 mg/dL (7-18); Calcium 8.5 mg/dL (8.5-10.1); Carbon Dioxide 18.5 meq/L (21.0-32.0); Chloride 105 meq/L (98-107); Creatine Kinase 4009 U/L (26-192); Glomerular Filtration Rate 23 mL/min (>89); Glucose,Random 443 mg/dL (74-106); Potassium 4.5 meq/L (3.5-5.1); Sodium 136 meq/L (136-145); Total Protein 6.7 g/dL (6.4-8.2)
[2018-06-16 06:48] LABS: CKMB Percent 0.2 % (0.0-4.0); Creatine Kinase MB 7.5 ng/mL (0.5-3.6)
[2018-06-16] MEDS: Nystatin 100,000 UNITS/GM Powder 15 GM Bottle TOPICAL SCH ×5 (08:51→22:17)
[2018-06-16] MEDS: Senna/Docusate Sodium 8.6/50 MG Tablet PO SCH ×2 (11:29→22:18)
[2018-06-16 12:28] LABS: Hemoglobin A1c 9.6 % (4.3-6.0)
--- NOTE | 2018-06-16 15:30 | ECG ---
Date Performed: 06/15/2018 Time Performed: 20:37:39 PTAGE: 53 years EKG: Sinus rhythm NORMAL ECG Borderline left axis Since PREVIOUS TRACING , no significant change noted PREVIOUS TRACIN12/17/2015 12.55 DOCTOR: Grayson Rodriguez Interpretating Date/Time 06/16/2018 15:28:29
[2018-06-16] MEDS: Insulin Detemir Inj 1,000 UNIT/10 ML Vial SQ SCH (22:16)
[2018-06-17] MEDS: Insulin NovoLOG Aspart Correctional Sugar Inj SQ SCH ×5 (04:01→20:23)
[2018-06-17] MEDS: Sod Chloride 0.9% Inj 1,000 ML IV.CONT SCH ×4 (04:01→20:20)
[2018-06-17] MEDS: Insulin Detemir Inj 1,000 UNIT/10 ML Vial SQ SCH ×2 (08:21→20:25)
[2018-06-17] MEDS: Senna/Docusate Sodium 8.6/50 MG Tablet PO SCH ×3 (08:22→20:30)
[2018-06-17] MEDS: Nystatin 100,000 UNITS/GM Powder 15 GM Bottle TOPICAL SCH ×4 (08:22→20:29)
--- NOTE | 2018-06-17 13:13 | P.PNIM ---
Subjective Interval history: Follow-up for rhabdomyolysis No overnight events, mild headache resolved. No muscle ache. Denies any chest pain or shortness of breath. Blood pressure is elevated, cannot remember her medications for diabetes and hypertension. Discussed with nursing, will obtain patient's med rec. Physical Exam Vital signs: Vital Signs 06/16/18 16:00 06/16/18 20:00 06/17/18 00:00 Temperature 98.7 F 97.9 F 98.7 F Pulse Rate 104 H 100 H 90 Respiratory Rate 18 Blood Pressure 165/74 H 173/79 H 120/64 Pulse Oximetry 97 96 99 06/17/18 04:00 06/17/18 08:00 06/17/18 12:00 Temperature 97.8 F 97.7 F 97.6 F Pulse Rate 86 78 82 Respiratory Rate 18 Blood Pressure 192/92 H 190/92 H 200/95 H Pulse Oximetry 98 98 99 Intake & Output 06/16/18 06/17/18 06/17/18 18:59 06:59 18:59 Intake Total 2099 1000 / 1000 Balance 2099 1000 / 1000 Intake: IV 2099 1000 / 1000 NS Inj 1,000 ML @ 200 mls/hr IV 1999 1000 / 1000 .CONT .Q5H EVAN Rx#:[id number] Maxipime Inj 2,000 MG In NS Inj 100 / 100 100 ML @ 200 mls/hr IV.SIG Q12H EVAN Rx#:[id number] Other: Date of Last Bowel Movement 06/16/18 06/16/18 Narrative: Gen.: No acute distress. EENT: Airway intact. Throat without injection. Cardiovascular: Regular rate and rhythm. No murmurs, rubs or gallops. Respiratory: Lungs clear to auscultation bilaterally. No wheezes or rhonchi. Abdomen: Soft, nontender, nondistended. No peritoneal signs. Musculoskeletal: No gross deformities. No edema. Right shoulder and arm exquisitely tender to palpation and painful with movement. Skin: Erythema with white patches in pannus skin fold. Ecchymoses on right shoulder and arm. Neuro: Alert awake and oriented x3. Sensory and motor grossly intact. Cranial nerves II through XII grossly intact. - Urinary Catheter Management Indwelling Urethral Catheter Cath placed during this visit: no Reason for continuing: Chronic Urinary Retention Results - Labs CBC & Chem 7: 06/16/18 04:15 06/16/18 04:15 Laboratory Results - last 24 hr 06/16/18 06/16/18 06/16/18 03:15 16:23 22:07 POC Glucose 314 H 277 H Hemoglobin A1c 9.6 H Lactic Acid 06/16/18 06/17/18 06/17/18 23:10 03:54 08:01 POC Glucose 277 H 243 H Hemoglobin A1c Lactic Acid 0.8 06/17/18 13:04 POC Glucose 264 H Hemoglobin A1c Lactic Acid Microbiology 06/16/18 03:15 Blood - Peripheral Aerobic Blood Culture - Preliminary No growth in 1 day 06/16/18 03:15 Blood - Peripheral Anaerobic Blood Culture - Preliminary No growth in 1 day 06/16/18 03:10 Blood - Peripheral Aerobic Blood Culture - Preliminary No growth in 1 day 06/16/18 03:10 Blood - Peripheral Anaerobic Blood Culture - Preliminary No growth in 1 day Assessment and Plan - Plan This is a 53-year-old female with history of retinitis pigmentosa and diabetes mellitus presenting with rhabdomyolysis after a fall Rhabdomyolysis with acute renal failure -Status post fall with prolonged immobilization, CPK 4000, CK still elevated, no repeat BMP today. Stat BMP and CK. Continue IVF. Recheck BMP tomorrow. Urinary retention/Ricardo catheter obstruction/urinary tract infection/ leukocytosis/sepsis Patient with indwelling Ricardo catheter was covered in feces and obstructed, Replaced in the emergency department UA consistent with urinary tract infection, urine culture pending. On cefepime , switch to ceftriaxone. Blood culture pending. Awaiting CBC for today. Hyperglycemia Patient with known history of diabetes type 2, on metformin at home -Continue sliding scale insulin, awaiting home medications. Hypertension/hyperlipidemia Continue home medications once reconciled, hydralazine as needed, clonidine as needed Shoulder pain, impaired mobility Patient reports chronic weakness secondary to lower extremity weakness and back problems Physical therapy consulted, patient not interested in going to rehab but interested with home health care. X-ray of the humerus and shoulder are unremarkable. DVT prophylaxis: Heparin FEN Diet Electrolytes: Monitor and replete as needed NS at 200 cc/hour
[2018-06-17] MEDS ORDERED: hydrALAZINE HCl Inj 20 MG/ML Vial IV.PUSH PRN (13:40)
[2018-06-17 14:53] LABS: Hematocrit 29.6 % (35.0-46.0); Hemoglobin 9.5 gm/dL (11.6-15.3); Mean Corpuscular Hemoglobin 27.1 pg (27.0-34.0); Mean Corpuscular Volume 84.7 fL (80.0-100.0); Mean Platelet Volume 8.1 fL (7.0-11.0); Platelet Count 279 th/mm3 (150-450); Red Cell Distribution Width 15.2 % (11.6-17.2); White Blood Count 13.5 th/mm3 (4.0-11.0)
[2018-06-17 15:34] LABS: Calcium 8.1 mg/dL (8.5-10.1); Carbon Dioxide 19.8 meq/L (21.0-32.0); Potassium 4.1 meq/L (3.5-5.1)
[2018-06-17 16:14] LABS: CKMB Percent 0.1 % (0.0-4.0); Creatine Kinase MB 3.1 ng/mL (0.5-3.6)
[2018-06-17] MEDS: amLODIPine 10 MG Tablet PO SCH (16:29)
[2018-06-17] MEDS: Heparin - SQ 10,000 UNITS/ML Vial SQ SCH (20:25)
[2018-06-18] MEDS: Insulin NovoLOG Aspart Correctional Sugar Inj SQ SCH ×5 (03:38→21:56)
[2018-06-18] MEDS: Morphine Sulfate Inj 2 MG/ML Vial IV.PUSH PRN (03:59)
[2018-06-18] MEDS: Sod Chloride 0.9% Inj 1,000 ML IV.CONT SCH ×3 (06:51→22:51)
[2018-06-18 08:49] LABS: CKMB Percent 0.2 % (0.0-4.0)
[2018-06-18] MEDS: amLODIPine 10 MG Tablet PO SCH (08:52)
[2018-06-18] MEDS: Insulin Detemir Inj 1,000 UNIT/10 ML Vial SQ SCH ×2 (08:52→21:45)
[2018-06-18] MEDS: Heparin - SQ 10,000 UNITS/ML Vial SQ SCH ×2 (08:52→21:46)
[2018-06-18] MEDS: Senna/Docusate Sodium 8.6/50 MG Tablet PO SCH ×2 (08:53→21:47)
--- NOTE | 2018-06-18 09:31 | P.DCO ---
- Diagnosis (1) Rhabdomyolysis Status: Acute - Physical Therapy Order: Evaluate and treat - Occupational Therapy Order: Evaluate and treat - Case Management Consult Case Management Consult-Home Health: Yes - Certification I have seen patient Sandy Macdonald on 06/18/18. My clinical findings support the need for the requested home health care services because: Limited mobility due to disease progression, Deconditioned with increased weakness, High risk of falls I certify that my clinical findings support that this patient is homebound because: Unsteady gait/balance, Unsafe to leave home unassisted
[2018-06-18] MEDS: Nystatin 100,000 UNITS/GM Powder 15 GM Bottle TOPICAL SCH ×4 (10:30→21:49)
[2018-06-18 11:20] LABS: Calcium 8.3 mg/dL (8.5-10.1); Carbon Dioxide 18.3 meq/L (21.0-32.0); Potassium 4.2 meq/L (3.5-5.1)
--- NOTE | 2018-06-18 12:54 | P.PNIM ---
Subjective Interval history: Follow-up for rhabdomyolysis No overnight events, mildly nauseated, still complaining of occasional back pain , no nausea or vomiting. Creatinine is still elevated. Complaining of gas pain. Physical Exam Vital signs: Vital Signs 06/17/18 16:00 06/17/18 20:00 06/18/18 00:00 Temperature 98.2 F 98.1 F 97.6 F Pulse Rate 80 83 70 Respiratory Rate 18 18 18 Blood Pressure 192/88 H 164/96 H 153/79 H Pulse Oximetry 99 98 99 06/18/18 04:00 06/18/18 04:08 06/18/18 08:00 Temperature 97.6 F 97.9 F Pulse Rate 75 104 H Respiratory Rate 18 18 18 Blood Pressure 179/79 H 155/80 H Pulse Oximetry 99 96 06/18/18 12:00 Temperature 97.4 F L Pulse Rate 81 Respiratory Rate 18 Blood Pressure 160/72 H Pulse Oximetry 96 Intake & Output 06/17/18 06/18/18 06/18/18 18:59 06:59 18:59 Intake Total 4900 / 4900 3400 / 3400 240 / 240 Output Total 2900 / 2900 900 / 900 Balance 1999 3400 / 3400 -660 / -660 Weight 111.9 kg Intake: IV 2100 / 2100 1999 NS Inj 1,000 ML @ 100 mls/hr IV 1999 .CONT .Q10H [facility] Rx#:[id number] Rocephin Inj 1,000 MG In NS Inj 100 / 100 100 ML @ 200 mls/hr IV.SIG Q24H [facility] Rx#:[id number] Oral 1000 / 1000 1400 / 1400 240 / 240 Other 1800 / 1800 Output: Urine 900 / 900 Urine Amount (Catheter) 2900 / 2900 Indwelling Urethral Catheter 2900 / 2900 Other: Other Intake Source Saline Solution Date of Last Bowel Movement 06/17/18 06/17/18 06/18/18 # Incontinent Bowel Movements 1 Narrative: Gen.: No acute distress. Cardiovascular: Regular rate and rhythm. No murmurs, rubs or gallops. Respiratory: Lungs clear to auscultation bilaterally. No wheezes or rhonchi. Abdomen: Soft, nontender, nondistended. No peritoneal signs. Musculoskeletal: No gross deformities. No edema. Right shoulder and arm exquisitely tender to palpation and painful with movement. Skin: Erythema with white patches in pannus skin fold. Ecchymoses on right shoulder and arm. Neuro: Alert awake and oriented x3. Light perception bilateral eyes. Sensory and motor grossly intact. Cranial nerves II through XII grossly intact. - Urinary Catheter Management Indwelling Urethral Catheter Cath placed during this visit: yes Reason for continuing: Acute urinary retention Insertion date: 06/14/18 Results - Labs CBC & Chem 7: 06/17/18 14:02 06/18/18 07:08 Laboratory Results - last 24 hr 06/17/18 06/17/18 06/17/18 13:04 14:02 14:02 WBC 13.5 H RBC 3.50 L Hgb 9.5 L Hct 29.6 L MCV 84.7 MCH 27.1 MCHC 32.0 RDW 15.2 Plt Count 279 MPV 8.1 Sodium 141 Potassium 4.1 Chloride 112 H Carbon Dioxide 19.8 L Anion Gap 9 BUN 25 H Creatinine 1.42 H Estimated GFR 39 L POC Glucose 264 H Random Glucose 274 H D Calcium 8.1 L Total Creatine Kinase CK-MB (CK-2) CK-MB (CK-2) % 06/17/18 06/17/18 06/17/18 14:02 16:43 20:16 WBC RBC Hgb Hct MCV MCH MCHC RDW Plt Count MPV Sodium Potassium Chloride Carbon Dioxide Anion Gap BUN Creatinine Estimated GFR POC Glucose 262 H 285 H Random Glucose Calcium Total Creatine Kinase 2190 H CK-MB (CK-2) 3.1 CK-MB (CK-2) % 0.1 06/18/18 06/18/18 06/18/18 03:32 07:08 07:08 WBC RBC Hgb Hct MCV MCH MCHC RDW Plt Count MPV Sodium 140 Potassium 4.2 Chloride 112 H Carbon Dioxide 18.3 L Anion Gap 10 BUN 18 Creatinine 1.35 H Estimated GFR 41 L POC Glucose 217 H Random Glucose 223 H Calcium 8.3 L Total Creatine Kinase 983 H CK-MB (CK-2) 2.0 CK-MB (CK-2) % 0.2 06/18/18 07:21 WBC RBC Hgb Hct MCV MCH MCHC RDW Plt Count MPV Sodium Potassium Chloride Carbon Dioxide Anion Gap BUN Creatinine Estimated GFR POC Glucose 240 H Random Glucose Calcium Total Creatine Kinase CK-MB (CK-2) CK-MB (CK-2) % Microbiology 06/16/18 03:15 Blood - Peripheral Aerobic Blood Culture - Preliminary No growth in 2 days 06/16/18 03:15 Blood - Peripheral Anaerobic Blood Culture - Preliminary No growth in 2 days 06/16/18 03:10 Blood - Peripheral Aerobic Blood Culture - Preliminary No growth in 2 days 06/16/18 03:10 Blood - Peripheral Anaerobic Blood Culture - Preliminary No growth in 2 days 06/15/18 22:30 Catheterized Urine Urine Culture - Final 50-100,000 cfu/mL mixed fabio (probable contaminants ) Assessment and Plan - Assessment (1) Rhabdomyolysis Code(s): M62.82 - Rhabdomyolysis Status: Acute - Plan This is a 53-year-old female with history of retinitis pigmentosa and diabetes mellitus presenting with rhabdomyolysis after a fall Rhabdomyolysis with acute renal failure -Status post fall with prolonged immobilization, CPK 4000, CK still elevated but a lot better, creatinine 1.35. Continue IVF with normal saline at 150 cc/hr , recheck BMP tomorrow. Urinary retention/Ricardo catheter obstruction/urinary tract infection/ leukocytosis/sepsis Patient with indwelling Ricardo catheter was covered in feces and obstructed, Replaced in the emergency department UA consistent with urinary tract infection, urine culture mixed fabio, stop ceftriaxone. No urinary symptoms. No fever. Recheck CBC tomorrow. Blood culture negative Hyperglycemia Patient with known history of diabetes type 2, on metformin at home -Continue sliding scale insulin Hypertension/hyperlipidemia Restart metoprolol and nifedipine per home meds, hydralazine as needed, clonidine as needed Shoulder pain, impaired mobility Patient reports chronic weakness secondary to lower extremity weakness and back problems Physical therapy consulted, patient not interested in going to rehab but interested with home health care. X-ray of the humerus and shoulder are unremarkable. DVT prophylaxis: Heparin FEN Diet Electrolytes: Monitor and replete as needed NS at 150 cc/hour DC tomorrow with home health care once creatinine and CK are better.
--- NOTE | 2018-06-18 13:16 | P.DS ---
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 The patient reports she is wheelchair-bound however is able to transfer independently. She was transferring from her chair to the wheelchair when she fell and lodged her arm between the chair and wheelchair. She reports she was on the ground for approximately 4 hours before the assistance arrived. The patient complains of right arm and shoulder pain. She also endorses subjective chills. On her arrival in the emergency department, the patient's Ricardo catheter was exchanged revealing obstruction and urinary retention. The catheter tubing was covered in feces. At the time of our interview, the patient had developed emesis. She was hyperglycemic in the emergency department with a blood glucose of 479. CPK 2985. The patient denies any chest pain or shortness of breath. She denies any headache or head trauma associated with her fall. Positive nausea with emesis. No abdominal pain. DS: Diagnosis - Discharge Diagnosis (1) Rhabdomyolysis Status: Acute (2) Renal failure (ARF), acute on chronic Status: Acute DS: Medications - Discharge Medications Prescriptions: insulin aspart U-100 [Novolog U-100 Insulin aspart] 5 units SUBCUT TIDAC 30 Days ml insulin detemir U-100 [Levemir U-100 Insulin] 16 unit SUBCUT BID 30 Days #1 vial DS: Summary Hospital Course: This is a 53-year-old female with history of retinitis pigmentosa and diabetes mellitus presenting with rhabdomyolysis after a fall. Upon admission, the patient was found to have a CK of 4000 and acute renal failure. Patient was started on normal saline at 200 cc/h. Patient also has urinary retention with chronic indwelling catheter was covered with feces and obstructed. Urinalysis was consistent with UTI, patient was started on cefepime, switched to ceftriaxone. Urine culture came back showed mixed fabio. Ceftriaxone was stopped. Blood culture remain negative, leukocytosis improved. Patient's blood pressure medications were restarted once medications were reconciled. Patient complained of shoulder pain, and chronic weakness secondary to lower extremity weakness and back problems. BGs were difficult to control, levemir was added, patient also started on hydralazine for blood pesure control.Recommendation is to go to rehab but patient refused and wanted to go home with home health care physical therapy. X-ray of the humerus and shoulder were unremarkable. Patient was discharged to Rehab. - Time Spent with Patient Total time spent providing and/or coordinating discharge services: Greater than 30 minutes Exam Vital signs: Vital Signs 06/17/18 16:00 06/17/18 20:00 06/18/18 00:00 Temperature 98.2 F 98.1 F 97.6 F Pulse Rate 80 83 70 Respiratory Rate 18 Blood Pressure 192/88 H 164/96 H 153/79 H Pulse Oximetry 99 98 99 06/18/18 04:00 06/18/18 04:08 06/18/18 08:00 Temperature 97.6 F 97.9 F Pulse Rate 75 104 H Respiratory Rate 18 Blood Pressure 179/79 H 155/80 H Pulse Oximetry 99 96 06/18/18 12:00 Temperature 97.4 F L Pulse Rate 81 Respiratory Rate 18 Blood Pressure 160/72 H Pulse Oximetry 96 Intake & Output 06/17/18 06/18/18 06/18/18 18:59 06:59 18:59 Intake Total 4900 / 4900 3400 / 3400 240 / 240 Output Total 2900 / 2900 900 / 900 Balance 1999 3400 / 3400 -660 / -660 Weight 111.9 kg Intake: IV 2100 / 2100 1999 NS Inj 1,000 ML @ 100 mls/hr IV 1999 .CONT .Q10H [facility] Rx#:[id number] Rocephin Inj 1,000 MG In NS Inj 100 / 100 100 ML @ 200 mls/hr IV.SIG Q24H [facility] Rx#:[id number] Oral 1000 / 1000 1400 / 1400 240 / 240 Other 1800 / 1800 Output: Urine 900 / 900 Urine Amount (Catheter) 2900 / 2900 Indwelling Urethral Catheter 2900 / 2900 Other: Other Intake Source Saline Solution Date of Last Bowel Movement 06/17/18 06/17/18 06/18/18 # Incontinent Bowel Movements 1 Narrative: Gen.: No acute distress. Cardiovascular: Regular rate and rhythm. No murmurs, rubs or gallops. Respiratory: Lungs clear to auscultation bilaterally. No wheezes or rhonchi. Abdomen: Soft, nontender, nondistended. No peritoneal signs. Musculoskeletal: No gross deformities. No edema. Right shoulder and arm exquisitely tender to palpation and painful with movement. Skin: Erythema with white patches in pannus skin fold. Ecchymoses on right shoulder and arm. Neuro: Alert awake and oriented x3. Light perception bilateral eyes. Sensory and motor grossly intact. Cranial nerves II through XII grossly intact. Results Procedures completed during hospitalization: None Labs on day of discharge: Labs from last 24 hours 06/18/18 06/18/18 06/18/18 12:56 07:21 07:08 WBC RBC Hgb Hct MCV MCH MCHC RDW Plt Count MPV Sodium 140 Potassium 4.2 Chloride 112 H Carbon Dioxide 18.3 L Anion Gap 10 BUN 18 Creatinine 1.35 H Estimated GFR 41 L POC Glucose 299 H 240 H Random Glucose 223 H Calcium 8.3 L Total Creatine Kinase CK-MB (CK-2) CK-MB (CK-2) % 06/18/18 06/18/18 06/17/18 07:08 03:32 20:16 WBC RBC Hgb Hct MCV MCH MCHC RDW Plt Count MPV Sodium Potassium Chloride Carbon Dioxide Anion Gap BUN Creatinine Estimated GFR POC Glucose 217 H 285 H Random Glucose Calcium Total Creatine Kinase 983 H CK-MB (CK-2) 2.0 CK-MB (CK-2) % 0.2 06/17/18 06/17/18 06/17/18 16:43 14:02 14:02 WBC RBC Hgb Hct MCV MCH MCHC RDW Plt Count MPV Sodium 141 Potassium 4.1 Chloride 112 H Carbon Dioxide 19.8 L Anion Gap 9 BUN 25 H Creatinine 1.42 H Estimated GFR 39 L POC Glucose 262 H Random Glucose 274 H D Calcium 8.1 L Total Creatine Kinase 2190 H CK-MB (CK-2) 3.1 CK-MB (CK-2) % 0.1 06/17/18 14:02 WBC 13.5 H RBC 3.50 L Hgb 9.5 L Hct 29.6 L MCV 84.7 MCH 27.1 MCHC 32.0 RDW 15.2 Plt Count 279 MPV 8.1 Sodium Potassium Chloride Carbon Dioxide Anion Gap BUN Creatinine Estimated GFR POC Glucose Random Glucose Calcium Total Creatine Kinase CK-MB (CK-2) CK-MB (CK-2) % Preliminary micro results at discharge 06/16/18 03:15 Aerobic Blood Culture - Preliminary Blood - Peripheral No growth in 2 days Anaerobic Blood Culture - Preliminary No growth in 2 days 06/16/18 03:10 Aerobic Blood Culture - Preliminary Blood - Peripheral No growth in 2 days Anaerobic Blood Culture - Preliminary No growth in 2 days - Impressions ITS Impressions Lumbar Spine CT 06/15/18 19:05 CONCLUSION: 1. Scattered degenerative change as described above. 2. Acute bony abnormality is not seen. Thoracic Spine CT 06/15/18 19:05 CONCLUSION: 1. No acute bony abnormalities seen. 2. Nonspecific focal areas of sclerosis at the C7 and T12 vertebral bodies. These could represent bone islands. Other causes for 2 sclerotic areas cannot be excluded. Humerus X-Ray 06/16/18 00:05 CONCLUSION: No evidence of fracture. Shoulder X-Ray 06/16/18 00:05 CONCLUSION: 1. No evidence of fracture. 2. Mild acromioclavicular joint arthrosis. Discharge Plan - Discharge Disposition Patient Disposition: Discharge to SNF - Discharge Condition Condition: Good - Discharge Order Discharge Orders: Discharge Order (Routine); Ordered 06/21/18 Ordered By: Jessica Linda - Discharge Details Anticipated Discharge Date: 06/19/18 - Physicians Team Primary Care Provider: Jaimie Pete Attending Provider: Silas Dodge Other Providers: [facility],Agency
[2018-06-18] MEDS: Simethicone 125 MG Chew Tablet PO PRN ×2 (14:37→21:46)
[2018-06-18] MEDS: Metoprolol Tartrate 50 MG Tablet PO SCH ×2 (14:37→21:46)
[2018-06-19] MEDS: Insulin NovoLOG Aspart Correctional Sugar Inj SQ SCH ×5 (03:02→22:31)
[2018-06-19] MEDS: Morphine Sulfate Inj 2 MG/ML Vial IV.PUSH PRN (04:55)
[2018-06-19] MEDS: Sod Chloride 0.9% Inj 1,000 ML IV.CONT SCH ×4 (05:15→10:02)
[2018-06-19 06:10] LABS: Baso # (Auto) 0.1 th/mm3 (0.0-0.2); Baso % (Auto) 0.6 % (0.0-2.0); Eos # (Auto) 0.1 th/mm3 (0.0-0.4); Eos % (Auto) 1.4 % (0.0-4.0); Hematocrit 30.9 % (35.0-46.0); Hemoglobin 10.1 gm/dL (11.6-15.3); Lymph # (Auto) 1.8 th/mm3 (1.0-4.8); Lymph % (Auto) 16.9 % (9.0-44.0); Mean Corpuscular HGB Conc 32.5 % (32.0-36.0); Mean Corpuscular Hemoglobin 27.3 pg (27.0-34.0); Mean Corpuscular Volume 83.8 fL (80.0-100.0); Mean Platelet Volume 8.2 fL (7.0-11.0); Mono # (Auto) 0.8 th/mm3 (0.0-0.9); Mono % (Auto) 7.6 % (0.0-8.0); Neut # (Auto) 7.9 th/mm3 (1.8-7.7); Neut % (Auto) 73.5 % (16.0-70.0); Platelet Count 297 th/mm3 (150-450); Red Blood Count 3.69 mil/mm3 (4.00-5.30); Red Cell Distribution Width 14.7 % (11.6-17.2); White Blood Count 10.7 th/mm3 (4.0-11.0)
[2018-06-19 06:38] LABS: Calcium 8.8 mg/dL (8.5-10.1); Carbon Dioxide 23.8 meq/L (21.0-32.0)
--- NOTE | 2018-06-19 08:04 | P.PN ---
Subjective Interval history: Follow up on patient with rhabdomyolysis. Patient seen and examined. Patient says she is doing ok. She does not voice any acute medical complaints or concerns. She is asking to be discharged tomorrow when she will have a caregiver present at home to assist her. Physical Exam Vital signs: Vital Signs 06/18/18 12:00 06/18/18 16:00 06/18/18 20:00 Temperature 97.1 F L 97.6 F 98.1 F Pulse Rate 106 H 109 H 79 Respiratory Rate 18 Blood Pressure 150/73 H 130/76 168/88 H Pulse Oximetry 98 96 99 06/19/18 00:00 06/19/18 04:00 06/19/18 05:11 Temperature 98.3 F 98.1 F Pulse Rate 67 69 Respiratory Rate 18 19 Blood Pressure 175/90 H 183/87 H Pulse Oximetry 99 99 06/19/18 06:53 Temperature Pulse Rate Respiratory Rate 12 Blood Pressure Pulse Oximetry Intake & Output 06/18/18 06/19/18 06/19/18 18:59 06:59 18:59 Intake Total 1040 / 1040 2442 / 2442 Output Total 2900 / 2900 1700 / 1700 Balance -1860 / -1860 742 / 742 Weight 111.8 kg Intake: IV 1999 NS Inj 1,000 ML @ 150 mls/hr IV 1999 .CONT .Q6H40M [facility] Rx#:[id number] Oral 1040 / 1040 442 / 442 Output: Urine 2900 / 2900 1000 / 1000 Urine Amount (Catheter) 700 / 700 Indwelling Urethral Catheter 700 / 700 Other: Date of Last Bowel Movement 06/18/18 06/18/18 06/18/18 # Incontinent Bowel Movements 1 1 Narrative: GENERAL: WDWN obese female patient. INAD. Awake and alert. Patient is legally blind. SKIN: Warm and dry. +ecchymoses right upper extremity. HEENT: Atraumatic. Normocephalic. Pupils equal and round. No scleral icterus. No injection or drainage. ENT: No nasal bleeding or discharge. Mucous membranes pink and moist. NECK: Trachea midline. No JVD. CARDIOVASCULAR: Regular rate and rhythm. RESPIRATORY: No accessory muscle use. Clear to auscultation. Breath sounds equal bilaterally. GASTROINTESTINAL: Abdomen soft, non-tender, nondistended. Hepatic and splenic margins not palpable. MUSCULOSKELETAL: Extremities without clubbing, cyanosis, or edema. RUE tender to palpation, limited ROM secondary to pain. NEUROLOGICAL: Awake and alert. No obvious cranial nerve deficits. Able to move all extremities. Motor and sensory function grossly intact. Normal speech. PSYCHIATRIC: Appropriate mood and affect; insight and judgment normal. - Urinary Catheter Management Indwelling Urethral Catheter Cath placed during this visit: yes Reason for continuing: Acute urinary retention Insertion date: 06/14/18 Results - Labs CBC & Chem 7: 06/19/18 05:11 06/19/18 05:11 Laboratory Results - last 24 hr 06/18/18 06/18/18 06/18/18 07:08 07:08 12:56 WBC RBC Hgb Hct MCV MCH MCHC RDW Plt Count MPV Neut % (Auto) Lymph % (Auto) Bee % (Auto) Eos % (Auto) Baso % (Auto) Neut # (Auto) Lymph # (Auto) Bee # (Auto) Eos # (Auto) Baso # (Auto) WBC Differential Differential Comment Sodium 140 Potassium 4.2 Chloride 112 H Carbon Dioxide 18.3 L Anion Gap 10 BUN 18 Creatinine 1.35 H Estimated GFR 41 L POC Glucose 299 H Random Glucose 223 H Calcium 8.3 L Total Creatine Kinase 983 H CK-MB (CK-2) 2.0 CK-MB (CK-2) % 0.2 06/18/18 06/18/18 06/19/18 17:09 21:52 02:56 WBC RBC Hgb Hct MCV MCH MCHC RDW Plt Count MPV Neut % (Auto) Lymph % (Auto) Bee % (Auto) Eos % (Auto) Baso % (Auto) Neut # (Auto) Lymph # (Auto) Bee # (Auto) Eos # (Auto) Baso # (Auto) WBC Differential Differential Comment Sodium Potassium Chloride Carbon Dioxide Anion Gap BUN Creatinine Estimated GFR POC Glucose 274 H 264 H 204 H Random Glucose Calcium Total Creatine Kinase CK-MB (CK-2) CK-MB (CK-2) % 06/19/18 06/19/18 06/19/18 05:11 05:11 07:12 WBC 10.7 RBC 3.69 L Hgb 10.1 L Hct 30.9 L MCV 83.8 MCH 27.3 MCHC 32.5 RDW 14.7 Plt Count 297 MPV 8.2 Neut % (Auto) 73.5 H Lymph % (Auto) 16.9 Bee % (Auto) 7.6 Eos % (Auto) 1.4 Baso % (Auto) 0.6 Neut # (Auto) 7.9 H Lymph # (Auto) 1.8 Bee # (Auto) 0.8 Eos # (Auto) 0.1 Baso # (Auto) 0.1 WBC Differential . Differential Comment Auto diff final Sodium 142 Potassium 4.0 Chloride 110 H Carbon Dioxide 23.8 Anion Gap 8 BUN 17 Creatinine 1.29 H Estimated GFR 43 L POC Glucose 214 H Random Glucose 209 H Calcium 8.8 Total Creatine Kinase CK-MB (CK-2) CK-MB (CK-2) % Microbiology 06/16/18 03:15 Blood - Peripheral Aerobic Blood Culture - Preliminary No growth in 2 days 06/16/18 03:15 Blood - Peripheral Anaerobic Blood Culture - Preliminary No growth in 2 days 06/16/18 03:10 Blood - Peripheral Aerobic Blood Culture - Preliminary No growth in 2 days 06/16/18 03:10 Blood - Peripheral Anaerobic Blood Culture - Preliminary No growth in 2 days - Procedures None Assessment and Plan - Assessment (1) Rhabdomyolysis Code(s): M62.82 - Rhabdomyolysis Status: Acute (2) Renal failure (ARF), acute on chronic Code(s): N17.9 - Acute kidney failure, unspecified; N18.9 - Chronic kidney disease, unspecified Status: Acute - Plan 53-year-old female with history of retinitis pigmentosa and diabetes mellitus presenting with rhabdomyolysis after a fall Rhabdomyolysis with acute renal failure -Status post fall with prolonged immobilization, CPK 4000 -CK trending down while on IVF. -creatinine improved to 1.29 -d/c IVF. Encourage po fluid intake Urinary retention/Ricardo catheter obstruction/urinary tract infection/ leukocytosis/sepsis Patient with indwelling Ricardo catheter was covered in feces and obstructed, Replaced in the emergency department UA consistent with urinary tract infection, urine culture mixed fabio, stop ceftriaxone. No urinary symptoms. No fever. Recheck CBC tomorrow. Blood culture negative Hyperglycemia Patient with known history of diabetes type 2, on metformin at home poorly controlled, patient reports BS in 500s at home A1c 9.6 blood sugars currently in mid to low 200s -continue on Januvia -continue on Levemir, increase to 12units BID -Continue accucheks and sliding scale insulin Hypertension/hyperlipidemia -continue on Metoprolol and Nifedipine -hydralazine as needed, clonidine as needed -continue to monitor BP and adjust treatment accordingly Shoulder pain, impaired mobility Patient reports chronic weakness secondary to lower extremity weakness and back problems Physical therapy consulted, patient not interested in going to rehab but interested with home health care. X-ray of the humerus and shoulder are unremarkable. DVT prophylaxis: Heparin Code Status: patient, nursing staff Discharge Planning: Patient discharged pending [facility] being set up. CM assisting with discharge planning.
[2018-06-19] MEDS: Pantoprazole Sodium 20 MG DR Tablet PO SCH (08:20)
[2018-06-19] MEDS: Metoprolol Tartrate 50 MG Tablet PO SCH ×2 (08:20→22:30)
[2018-06-19] MEDS: Insulin Detemir Inj 1,000 UNIT/10 ML Vial SQ SCH (08:20)
[2018-06-19] MEDS: Senna/Docusate Sodium 8.6/50 MG Tablet PO SCH ×2 (08:20→22:30)
[2018-06-19] MEDS: Heparin - SQ 10,000 UNITS/ML Vial SQ SCH ×2 (08:21→22:29)
[2018-06-19] MEDS: Nystatin 100,000 UNITS/GM Powder 15 GM Bottle TOPICAL SCH ×4 (08:21→22:39)
[2018-06-19] MEDS ORDERED: Insulin Detemir Inj 1,000 UNIT/10 ML Vial SQ SCH (21:00)
[2018-06-20] MEDS: Insulin NovoLOG Aspart Correctional Sugar Inj SQ SCH ×5 (03:52→22:01)
[2018-06-20] MEDS: Morphine Sulfate Inj 2 MG/ML Vial IV.PUSH PRN (04:31)
--- NOTE | 2018-06-20 07:52 | P.PN ---
Subjective Interval history: Problem patient with rhabdomyolysis. Patient seen and examined. Patient complaining of crampy pain in right calf. She also is complaining of dizziness. She denies any fever or chills. She denies any nausea, vomiting or abdominal pain. She reports chronic back pain. She states she does not feel that she is safe to go home with home health care and has changed her mind and decided to go to rehab. She is requesting to go to [facility]. Physical Exam Vital signs: Vital Signs 06/19/18 08:00 06/19/18 09:00 06/19/18 12:00 Temperature 97.4 F L 97.5 F L Pulse Rate 71 69 76 Respiratory Rate 20 18 Blood Pressure 178/97 H 173/79 H Pulse Oximetry 97 97 06/19/18 12:26 06/19/18 16:00 06/19/18 17:30 Temperature 97.6 F Pulse Rate 79 71 69 Respiratory Rate 18 Blood Pressure 174/78 H Pulse Oximetry 99 06/19/18 20:00 06/19/18 20:30 06/19/18 21:06 Temperature 98.0 F 97.3 F L Pulse Rate 70 70 65 Respiratory Rate 18 18 Blood Pressure 170/82 H 155/74 H Pulse Oximetry 99 90 L 06/20/18 00:00 06/20/18 01:05 06/20/18 04:00 Temperature 97.4 F L 97.3 F L Pulse Rate 62 64 Respiratory Rate 18 16 18 Blood Pressure 158/72 H 175/84 H Pulse Oximetry 99 96 Intake & Output 06/19/18 06/20/18 06/20/18 18:59 06:59 18:59 Intake Total 2049 Output Total 1150 / 1150 1200 / 1200 Balance 900 / 900 -1200 / -1200 Weight 107.7 kg Intake: IV 1450 / 1450 NS Inj 1,000 ML @ 150 mls/hr IV 1450 / 1450 .CONT .[id number] [facility] Rx#:[id number] Oral 600 / 600 Output: Urine 1150 / 1150 1200 / 1200 Other: Date of Last Bowel Movement 06/18/18 Narrative: GENERAL: WDWN obese female patient. INAD. Awake and alert. Patient is legally blind. Appears comfortable lying in bed. SKIN: Warm and dry. +ecchymoses right upper extremity. HEENT: Atraumatic. Normocephalic. Legally blind. No scleral icterus. No injection or drainage. ENT: No nasal bleeding or discharge. Mucous membranes pink and moist. NECK: Trachea midline. CARDIOVASCULAR: Regular rate and rhythm. RESPIRATORY: No accessory muscle use. Clear to auscultation. Breath sounds equal bilaterally. GASTROINTESTINAL: Abdomen soft, non-tender, nondistended. +BS. MUSCULOSKELETAL: Extremities without clubbing, cyanosis, or edema. RUE tender to palpation, limited ROM secondary to pain. Right calf supper, tender to palpation. NEUROLOGICAL: Awake and alert. No obvious cranial nerve deficits. Able to move all extremities. Motor and sensory function grossly intact. Normal speech. PSYCHIATRIC: Appropriate mood and affect; insight and judgment normal. - Urinary Catheter Management Indwelling Urethral Catheter Cath placed during this visit: yes Reason for continuing: Acute urinary retention Insertion date: 06/14/18 Results - Labs CBC & Chem 7: 06/19/18 05:11 06/19/18 05:11 Laboratory Results - last 24 hr 06/19/18 06/19/18 06/19/18 11:18 16:18 20:04 POC Glucose 222 H 297 H 348 H 06/20/18 06/20/18 03:45 07:18 POC Glucose 238 H 272 H Microbiology 06/16/18 03:15 Blood - Peripheral Aerobic Blood Culture - Preliminary No growth in 3 days 06/16/18 03:15 Blood - Peripheral Anaerobic Blood Culture - Preliminary No growth in 3 days 06/16/18 03:10 Blood - Peripheral Aerobic Blood Culture - Preliminary No growth in 3 days 06/16/18 03:10 Blood - Peripheral Anaerobic Blood Culture - Preliminary No growth in 3 days - Procedures None Assessment and Plan - Assessment (1) Rhabdomyolysis Code(s): M62.82 - Rhabdomyolysis Status: Acute (2) Renal failure (ARF), acute on chronic Code(s): N17.9 - Acute kidney failure, unspecified; N18.9 - Chronic kidney disease, unspecified Status: Acute - Plan 53-year-old female with history of retinitis pigmentosa and diabetes mellitus presenting with rhabdomyolysis after a fall 06/20 patient is scheduled to go home with home health care however patient has since changed her mind and is requesting to go to [facility]. Discussed with Jammie produce manager. No beds available today but likely can be transferred tomorrow. Patient complaining of crampy pain in her right lower extremity. Will obtain Doppler to rule out DVT. Ultram as needed chronic back pain. Rhabdomyolysis with acute renal failure -Status post fall with prolonged immobilization, CPK 4000 -CK trending down while on IVF. -creatinine improved to 1.29 -d/c IVF. Encourage po fluid intake Urinary retention/Ricardo catheter obstruction/urinary tract infection/ leukocytosis/sepsis Patient with indwelling Ricardo catheter was covered in feces and obstructed, Replaced in the emergency department UA consistent with urinary tract infection, urine culture mixed fabio, stop ceftriaxone. No urinary symptoms. No fever. Repeat CBC unremarkable. Blood culture negative Hyperglycemia Patient with known history of diabetes type 2, on metformin at home poorly controlled, patient reports BS in 500s at home A1c 9.6 blood sugars ranging from mid 200s to mid 300s -continue on Januvia -continue on Levemir, increase to 14units BID and began aspart 5 units TIDAC -Continue accucheks and sliding scale insulin Hypertension/hyperlipidemia Blood pressure not well controlled -Increase nifedipine XL to 90 mg daily -continue on Metoprolol -hydralazine as needed, clonidine as needed -continue to monitor BP and adjust treatment accordingly Shoulder pain, impaired mobility Patient reports chronic weakness secondary to lower extremity weakness and back problems Physical therapy consulted, patient not interested in going to rehab but interested with home health care. X-ray of the humerus and shoulder are unremarkable. DVT prophylaxis: Heparin Discussed Condition With: patient, nursing staff, Dr. Dodge Discharge Planning: Patient discharged home with [facility] but has changed her mind and is requesting discharge to rehab. She is requesting [facility] assisting with discharge planning.
[2018-06-20] MEDS: Insulin Detemir Inj 1,000 UNIT/10 ML Vial SQ SCH ×2 (08:28→22:02)
[2018-06-20] MEDS: Metoprolol Tartrate 50 MG Tablet PO SCH ×2 (08:28→21:47)
[2018-06-20] MEDS: Pantoprazole Sodium 20 MG DR Tablet PO SCH (08:28)
[2018-06-20] MEDS: Senna/Docusate Sodium 8.6/50 MG Tablet PO SCH ×2 (08:28→21:47)
[2018-06-20] MEDS: Heparin - SQ 10,000 UNITS/ML Vial SQ SCH ×2 (08:29→21:47)
[2018-06-20] MEDS: Nystatin 100,000 UNITS/GM Powder 15 GM Bottle TOPICAL SCH ×4 (08:34→22:03)
--- NOTE | 2018-06-20 10:31 | US ---
EXAM DATE: 06/20/2018 10:24 AM EST AGE/SEX: 53 years / Female INDICATIONS: Right leg pain. CLINICAL DATA: This is the patient's initial encounter. Patient reports that signs and symptoms have been present for 4 - 6 days and indicates a pain score of 6/10. MEDICAL/SURGICAL HISTORY: Gastroesophageal reflux disease. Hypertension. Diabetes. Hyperlipi demia. Urinary retention. Hysterectomy. Hernia repair. Breast reduction. COMPARISON: No prior exams available for comparison. TECHNIQUE: Venous ultrasound of both lower extremities was performed from the inguinal ligament to t he proximal calf. Real-time, color Doppler and spectral tracing, compression and augmentation techni ques were used. FINDINGS: The common femoral vein was not seen. The technologist reports the patient was unable to l ift the abdomen out of the way without pain. The superficial femoral vein, popliteal vein, peroneal v ein, posterior tibial veins appear patent.. Normal compression of the deep venous system from the ing uinal region to the proximal calf. No echogenic clot is seen. Normal response of the venous system to augmentation and respiration. CONCLUSION: No DVT seen. Electronically signed by: Enio Tomas MD 06/20/2018 10:29 AM EST
[2018-06-21] MEDS: Insulin NovoLOG Aspart Correctional Sugar Inj SQ SCH ×3 (02:24→14:28)
[2018-06-21] MEDS: Simethicone 125 MG Chew Tablet PO PRN (04:22)
--- NOTE | 2018-06-21 07:33 | P.PN ---
Subjective Interval history: Follow up on patient with rhabdomyolysis. Patient seen and examined. She reports chronic abdominal pain that responds well to Pepto Bismol. She is asking if she can come off of the renal diet. She denies any fever or chills. She denies any chest pain or dyspnea. She denies any nausea or vomiting. She is tolerating diet. She reports large BM this am. Physical Exam Vital signs: Vital Signs 06/20/18 08:00 06/20/18 09:00 06/20/18 12:00 Temperature 97.8 F 98 F Pulse Rate 72 66 69 Respiratory Rate 20 20 Blood Pressure 168/81 H 131/79 Pulse Oximetry 99 98 06/20/18 13:55 06/20/18 16:00 06/20/18 17:03 Temperature 97.8 F Pulse Rate 65 72 69 Respiratory Rate 20 Blood Pressure 150/71 H Pulse Oximetry 97 06/20/18 20:00 06/20/18 20:30 06/21/18 00:00 Temperature 98.7 F 98.3 F Pulse Rate 76 73 64 Respiratory Rate 18 18 Blood Pressure 134/81 149/73 H Pulse Oximetry 98 99 06/21/18 00:30 06/21/18 04:00 06/21/18 04:30 Temperature 97.6 F Pulse Rate 62 69 68 Respiratory Rate 18 Blood Pressure 165/81 H Pulse Oximetry 98 Intake & Output 06/20/18 06/21/18 06/21/18 18:59 06:59 18:59 Intake Total 860 / 860 Output Total 450 / 450 950 / 950 Balance 410 / 410 -950 / -950 Weight 107.8 kg Intake: Oral 860 / 860 Output: Urine 450 / 450 950 / 950 Other: Date of Last Bowel Movement 06/20/18 06/20/18 Narrative: GENERAL: WDWN obese female patient. INAD. Awake and alert. Patient is legally blind. Appears comfortable sitting up in bed. SKIN: Warm and dry. HEENT: Atraumatic. Normocephalic. Legally blind. No scleral icterus. No injection or drainage. ENT: No nasal bleeding or discharge. Mucous membranes pink and moist. NECK: Trachea midline. CARDIOVASCULAR: Regular rate and rhythm. RESPIRATORY: No accessory muscle use. Clear to auscultation. Breath sounds equal bilaterally. GASTROINTESTINAL: Abdomen soft, non-tender, nondistended. +BS. MUSCULOSKELETAL: Extremities without clubbing, cyanosis, or edema. RUE tender to palpation, limited ROM secondary to pain. NEUROLOGICAL: Awake and alert. No obvious cranial nerve deficits. Able to move all extremities. Motor and sensory function grossly intact. Normal speech. PSYCHIATRIC: Appropriate mood and affect; insight and judgment normal. - Urinary Catheter Management Indwelling Urethral Catheter Cath placed during this visit: yes Reason for continuing: Acute urinary retention Insertion date: 06/14/18 Results - Labs CBC & Chem 7: 06/19/18 05:11 06/19/18 05:11 Laboratory Results - last 24 hr 06/20/18 06/20/18 06/20/18 07:18 11:14 16:14 POC Glucose 272 H 191 H 240 H 06/20/18 06/21/18 21:55 02:16 POC Glucose 388 H 284 H Microbiology 06/16/18 03:15 Blood - Peripheral Aerobic Blood Culture - Preliminary No growth in 4 days 06/16/18 03:15 Blood - Peripheral Anaerobic Blood Culture - Preliminary No growth in 4 days 06/16/18 03:10 Blood - Peripheral Aerobic Blood Culture - Preliminary No growth in 4 days 06/16/18 03:10 Blood - Peripheral Anaerobic Blood Culture - Preliminary No growth in 4 days - Imaging Impressions Venous Doppler Study 06/20/18 00:00 CONCLUSION: No DVT seen. - Procedures None Assessment and Plan - Assessment (1) Rhabdomyolysis Code(s): M62.82 - Rhabdomyolysis Status: Acute (2) Renal failure (ARF), acute on chronic Code(s): N17.9 - Acute kidney failure, unspecified; N18.9 - Chronic kidney disease, unspecified Status: Acute - Plan 53-year-old female with history of retinitis pigmentosa and diabetes mellitus presenting with rhabdomyolysis after a fall Rhabdomyolysis with acute renal failure -Status post fall with prolonged immobilization, CPK 4000 -CK trending down while on IVF. IVF discontinued. -creatinine improved to 1.29 -Continue to encourage po fluid intake Urinary retention/Ricardo catheter obstruction/urinary tract infection/ leukocytosis/sepsis Patient with indwelling Ricardo catheter was covered in feces and obstructed, Replaced in the emergency department -UA consistent with urinary tract infection, urine culture mixed fabio, ceftriaxone discontinued. No urinary symptoms. No fever. Repeat CBC unremarkable. Blood culture negative Hyperglycemia Patient with known history of diabetes type 2, on metformin at home poorly controlled, patient reports BS in 500s at home A1c 9.6 blood sugars ranging from mid to high 200s -continue on Januvia -continue on Levemir, increase to 16units BID and began aspart 5 units TIDAC -Continue accucheks and sliding scale insulin Hypertension/hyperlipidemia Blood pressure not well controlled -Continue on nifedipine XL 90 mg daily -continue on Metoprolol -begin scheduled Hydralazine 25mg TID -hydralazine as needed, clonidine as needed -continue to monitor BP and adjust treatment accordingly Shoulder pain, impaired mobility Patient reports chronic weakness secondary to lower extremity weakness and back problems Physical therapy consulted, patient not interested in going to rehab but interested with home health care. X-ray of the humerus and shoulder are unremarkable. Dyspepsia, chronic per patient report -Pepto bismol prn as requested by patient Right calf pain, improved -Doppler neg for DVT DVT prophylaxis: Heparin Discussed Condition With: patient, nursing staff, Dr. Dodge Discharge Planning: Patient discharged home with [facility] but has changed her mind and is requesting discharge to rehab. She is requesting [facility] assisting with discharge planning.
[2018-06-21] MEDS ORDERED: Insulin Detemir Inj 1,000 UNIT/10 ML Vial SQ SCH (09:00)
[2018-06-21] MEDS: Nystatin 100,000 UNITS/GM Powder 15 GM Bottle TOPICAL SCH (09:00)
[2018-06-21] MEDS: Pantoprazole Sodium 20 MG DR Tablet PO SCH (09:55)
[2018-06-21] MEDS: Senna/Docusate Sodium 8.6/50 MG Tablet PO SCH (09:55)
[2018-06-21] MEDS: hydrALAZINE 25 MG Tablet PO SCH ×2 (09:55→14:25)
[2018-06-21] MEDS: Metoprolol Tartrate 50 MG Tablet PO SCH (09:55)
[2018-06-21] MEDS: Heparin - SQ 10,000 UNITS/ML Vial SQ SCH (09:56)
[2018-06-21 17:45] VITALS: BP 121/65; PULSE 78; RESP 20; TEMP 98; O2SAT 100
[2018-06-21] MEDS ORDERED: Bismuth Subsalicylate Susp 240 ML Bottle PO PRN (18:02)
--- NOTE | 2018-06-23 11:35 | PQ ---
Physician Query Response Document PATIENT: Sandy Macdonald : 1965 ADMIT DATE: 06/16/2018 2:25 AM DISCH DATE: 06/21/2018 5:49 PM RESPONDING PROVIDER #: ROBERTO QUERY TEXT: CDS Clarification Infection and inflammatory reaction due to indwelling urethral catheter in a patient found w obstruct ed ivey catheter changed in ER [place] w IV Cefepime Other explanation of clinical findings. Unable to determine (no explanation for clinical findings). The medical record reflects the following clinical findings, treatment, and risk factors. * Clinical Indicators wbc 26.6 urine culture / urinary retention from cath obstruction / DANIELA * Risk Factors chronic indwelling ivey catheter * Treatment Urine culture IV Cefepime, blood cultures The patient's Clinical Indicators include: Please clarify and document your clinical opinion in the progress notes and discharge summary includi ng the definitive and/or presumptive diagnosis (suspected or probable), related to the above clinical findings. Please include clinical findings supporting your diagnosis. Thank you, Grace Castro CDS: Grace Castro Patient Unit: NE Contact Number: Room: E55 Query created by: Grace Castro on 06/16/2018 10:08 AM RESPONSE TEXT: UTI/ urosepsis due to indwelling urethral catheter in a patient found with obstructed ivey catheter changed in ER, [place] w IV Cefepime * Clinical Indicators wbc 26.6 urine culture / urinary retention from cath obstruction / DANIELA * Risk Factors chronic indwelling ivey catheter * Treatment Urine culture IV Cefepime, blood cultures The patient's Clinical Indicators include: Please clarify and document your clinical opinion in the progress notes and discharge summary including the definitive and/or presump tive diagnosis (suspected or probable), related to the above clinical findings. Please include clinic al findings supporting your diagnosis. Electronically signed by: Nehal Burgess MD 06/23/2018 12:26 AM
== END 2018-06-21 17:49 ==
LOC: NEPE 17:56 → NEDA 17:56 → NEDH 06-16 03:32 → N05 06-16 13:23
PROVIDERS: ADMIT Family Medicine; ATTEND Family Medicine